=== PATIENT | female | born 1940 | race Caucasian/White ===

== ENCOUNTER 2024-06-07 16:04 | Inpatient (IN) | payer MEDICARE, MEDICAID, SELFPAY ==
[2024-06-07] VITALS (10 sets, daily range): BP systolic 134–171; BP diastolic 48–72; PULSE 66–76; RESP 14–19; TEMP 36.8–37.1; O2SAT 89–100; BMI 27.3
--- NOTE | 2024-06-07 16:09 | EDNOTE_ITS ---
ED General RME/HPI General Chief complaint: Recheck/Abnormal Lab/Rx Stated complaint: ABNORNAL LABS Time Seen by Provider: 06/07/24 16:07 Arrival date/time: 06/07/24 16:04 CC: Abnormal labs HPI patient presents the ER via EMS reports stable vital signs. Abnormal labs reported is a hemoglobin of 5.1. The patient comes with paperwork that includes a DNR DNI that is comfort care only. When asked directly the patient states she does not want a transfusion. Patient is awake alert oriented to self and place. Currently denies any pain. Attempted to contact Dr Barrera, presiding physician at [facility] with care services. Left message but at this point no callbacks. 1621 spoke with Erin Flaca [phone], signature on the DNR who states that she is power of patent prosecution attorney for finances, but has no medical power of patent prosecution attorney. She states comments if the patient declines transfusion then we need to go with what the patient wants. At 1631 I spoke again with the patient stating that she was critically low with her hemoglobin, at that time the patient expressed a desire to be transfused. In addition patient also expressed desire to figure out where the low hemoglobin is coming from and wants it fixed . Related Data Home Medications ?Medication ?Instructions ?Recorded ?Confirmed aspirin 325 mg tablet 325 mg PO MWF 02/04/20 07/31/22 acetaminophen 500 mg tablet 500 mg PO QDAY 07/26/21 07/31/22 albuterol sulfate 90 mcg/actuation 1 inh inhalation Q6H PRN shortness 07/26/21 07/31/22 aerosol inhaler (ProAir HFA) of breath or wheezing amlodipine 5 mg tablet 5 mg PO QDAY 07/26/21 07/31/22 bisacodyl 10 mg rectal suppository 10 mg PA PRN PRN Constipation 07/26/21 07/31/22 insulin glargine 100 unit/mL (3 10 unit subcut HS 07/26/21 07/31/22 mL) subcutaneous pen (Lantus Solostar U-100 Insulin) loratadine 10 mg tablet 10 mg PO QDAY 07/26/21 07/31/22 magnesium hydroxide 400 mg/5 mL 30 ml PO Q72H PRN Constipation 07/26/21 07/31/22 oral suspension (Milk of Magnesia) multivitamin with minerals 1 cap PO QDAY 07/26/21 07/31/22 quetiapine 25 mg tablet (Seroquel) 25 mg PO QDAY 07/26/21 07/31/22 metformin 500 mg tablet 500 mg PO BID 05/20/22 07/31/22 calcium carbonate 600 mg PO BID 07/31/22 07/31/22 chlorhexidine gluconate 4 % 1 applic topical 2 X WEEKLY 07/31/22 07/31/22 topical liquid (Hibiclens) duloxetine 30 mg capsule,delayed 30 mg PO BID 07/31/22 07/31/22 release (Cymbalta) guaifenesin 100 mg/5 mL oral 400 mg PO Q6H PRN Cough 07/31/22 07/31/22 liquid (Tussin) hydrocortisone 1 % lotion 1 applic topical BID 07/31/22 07/31/22 hydroxyzine HCl 25 mg tablet 25 mg PO Q8H PRN Itching 07/31/22 07/31/22 ivermectin 3 mg tablet 18 mg PO QWEEK 07/31/22 07/31/22 polyvinyl alcohol 1.4 % eye drops 2 drp ophthalmic (eye) Q4H PRN 07/31/22 07/31/22 (Artificial Tears (polyvinyl irritation alcohol)) sodium phosphates 19 gram-7 118 ml PA Q72H PRN Constipation 07/31/22 07/31/22 gram/118 mL enema (Fleet Enema) Allergies Allergy/AdvReac Type Severity Reaction Status Date / Time valsartan [From Diovan] Allergy Unknown Verified 07/31/22 14:40 Review of Systems Review of Systems Narrative Review of Systems: GEN: No fever, no chills, no weight loss EYES: No discharge, no visual changes, no pain HEENT: No ear pain, no congestion, no sore throat PULM: No shortness of breath, no cough, no congestion CV: No chest pain, no dyspnea on exertion, no palpitations GI: No nausea, no vomiting, no diarrhea, no pain, no constipation : No frequency, no urgency, no dysuria MUSC/SKEL: No joint pain, no back pain SKIN: No rash PSYCH: No hallucinations, no depression HEME/LYMPH: No easy bleeding or bruising tendencies NEURO: No weakness, no headache Past Medical History Past Medical History CARDIAC: Positive Cardiac Disorders, Edema and Hypertension; Negative Congestive Heart Failure RESPIRATORY: Negative Chronic Obstructive Pulmonary Disease (COPD) or Asthma GENITOURINARY: Negative Renal Disease ENDOCRINE: Negative Diabetes Mellitus Type 1 or Diabetes Mellitus Type 2 HEMATOLOGIC: Negative Sickle Cell Disease Surgical History SURGICAL: Positive Hysterectomy Social History SMOKING STATUS: Former smoker SUBSTANCE USE: unknown ED Exam Narrative Physical exam: [General: Appears not in any acute distress Head normocephalic HEENT: Eyes pupils are PERRLA EOMs are intact conjunctiva are blanched. Nose no rhinorrhea mouth pink dry membranes uvula is midline swallow symmetrical. All other subsystems HEENT are within acceptable limits Neck is supple nontender, no JVD Chest equal chest rise nontender to palpation Respiratory: Clear to auscultation no wheezes crackles or rubs CV: Rate rhythm is regular no murmurs rubs or clicks Abdomen is distended secondary to body habitus soft nontender no masses positive bowel sounds all 4 quadrants GI: Rectal: Moderate rectal tone stool in the vault guaiac positive. No fissures or hemorrhoids. Back: No CVA tenderness no spinous process tenderness from cervical spine thoracic and lumbar spine Skin: Pale, intact no petechiae rash induration ulceration or crepitus Extremities: Moving all extremity against resistance cap refill less than 2 seconds neurosensory intact Neuro: Awake alert oriented x2, person and place, Glascow coma 15 no focal deficits] Course Course Course Narrative: Patient is very awake and alert, I expressed my concern of where the low hemoglobin is coming from. Patient states that she wants me to try and find out what it is and fix it. At 1642 guaiac is positive patient has a GI bleed with anemia will admit the patient on Protonix drip. Dr Barrera called back at 1644 stating the patient is awake alert makes her decisions, he states if the patient wants that he would advised to go ahead and abide by the patient's wishes to transfuse and correct the source of hemorrhage. Quality Measures none Orders Category Date Time Status NPO after Midnight ONCE Care 06/07/24 16:45 Active Transfuse,blood/blood products NOW Care 06/07/24 16:32 Active Consult to Gastroenterology Stat Cons 06/07/24 19:03 Ordered Diet Clear Liquid Diet 06/07/24 Breakfast Active Diet NPO after Midnight Diet 06/08/24 00:01 Active CBC Stat Lab 06/07/24 17:14 Completed CMP [Comprehensive Metabolic Panel] Stat Lab 06/07/24 17:14 Completed Occult Blood, Stool (LAB) Stat Lab 06/07/24 17:06 Completed PT [Prothrombin Time with INR] Stat Lab 06/07/24 17:14 Completed PTT [Partial Thromboplastin Time] Stat Lab 06/07/24 17:14 Completed Path Review Blood Smear Stat Lab 06/07/24 17:14 Completed Type and Screen Stat Lab 06/07/24 17:14 Results prbc [Red Blood Cells] Stat Lab 06/07/24 17:14 Results Pantoprazole Inj [Protonix Inj] Med 06/07/24 16:42 Discontinued 40 mg IVP X1 ONE Pantoprazole/Ns 80Mg IV Premix [Protonix/NS 80mg IV Med 06/07/24 16:43 Active Premix] 80 mg in 100 ml IV Q10H Vital Signs Vital signs: Vital Signs Temperature 98.8 F 06/07/24 16:07 Pulse Rate 72 06/07/24 16:07 Respiratory Rate 16 06/07/24 16:07 Blood Pressure 142/56 H 06/07/24 16:07 Pulse Oximetry (%) 90 L 06/07/24 16:07 Oxygen Delivery Method Room Air 06/07/24 16:07 [facility] Patient data External records reviewed:: [facility] previous records and EMS form Clinical information provided by:: patient and EMS Social determinants that could affect healthcare access:: none Patient has the following chronic illnesses:: Asthma anxiety venous hypertension dysphagia on aspirin 325 a day How is presenting disease/condition affected by chronic disease/condition?: e xacerbated by Evaluation data The following diagnostics were reviewed and interpreted by me:: lab results, radiology exam(s) and EKG tracing(s) Lab and/or radiology exams considered but not ordered:: CBC shows the patient has WBCs of 9.3 and H&H of 5.2 and 19.5 respectively with platelets of 328 CMP shows sodium 141 potassium of 5.1 chloride of 106 CO2 of 28.2 BUN of 23 creatinine of 0.6 with a glucose of 93. Guaiac is positive Interpretation Summary: Patient is a GI bleed will admit to hospitalist with Dr. Kraft, pediatric clinical dietician as a consult. Medications Medications considered but not ordered:: None Medication administrations:: Medication Administration History Acetaminophen (Acetaminophen 325 Mg Tablet) 650 mg PO Q6H PRN PRN Reason: Pain 1-3 and/or Fever >100.1 Stop: 07/07/24 20:00 Hydrocodone Bitart/Acetaminophen (Hydrocodone/Apap 5/325 Tablet) 1 tab PO Q4HR PRN PRN Reason: PAIN SCALE 4-6 (Moderate Stop: 06/12/24 20:00 Hydrocodone Bitart/Acetaminophen (Hydrocodone/Apap 10/325 Tab) 1 tab PO Q4HR PRN PRN Reason: PAIN SCALE 7-10 (Severe Stop: 06/12/24 20:00 Amlodipine Besylate (Amlodipine Besylate 5 Mg Tablet) 5 mg PO QDAY IMMANUEL Stop: 07/08/24 08:59 Dextrose (Dextrose 50%-Water Inj 50 Ml Syringe) 25 ml IV Q15MIN PRN PRN Reason: BG 50-70 responsive npo pt Stop: 07/07/24 20:03 Dextrose (Dextrose 50%-Water Inj 50 Ml Syringe) 50 ml IV Q15MIN PRN PRN Reason: BG <50 OR BG <70 & pt unresponsive Stop: 07/07/24 20:03 Duloxetine HCl (Duloxetine Hcl 30 Mg Capsule) 30 mg PO HS IMMANUEL Stop: 07/07/24 20:59 Glucagon (Glucagon Inj 1 Mg Vial) 1 mg IM Q15MIN PRN PRN Reason: BG <70, and no IV access Pantoprazole Sodium (Protonix/Ns 80mg Iv Premix) 80 mg in 100 mls @ 10 mls/hr IV Q10H IMMANUEL Stop: 06/10/24 14:42 Last Admin: 06/07/24 17:32 Dose: 10 mls/hr Documented By: GM Insulin Human Lispro (Insulin Lispro (Admelog) 1 Unit/0.01 Ml Unit) 0 unit SC [facility]; Protocol Stop: 07/07/24 20:59 Ondansetron HCl (Ondansetron Inj 2 Mg/Ml Inj 2 Ml) 4 mg IV Q6H PRN; Protocol PRN Reason: NAUSEA OR VOMITING Stop: 07/07/24 20:00 Discontinued Medications Pantoprazole Sodium (Pantoprazole Inj 40 Mg Vial) 40 mg IVP X1 ONE Stop: 06/07/24 16:43 Last Admin: 06/07/24 17:31 Dose: 40 mg Documented By: GM None Consultations Consultation(s) initiated? (list below): Yes Consultation #1 (Physician, Specialty, Details): Swapnil Time: 18:57 Diagnosis Differential Diagnosis ED Complaint MDM: GI bleed anemia renal insufficiency Most likely diagnosis given after review of the tests above:: GI bleed anemia Admission Indicated Admission indicated?: indicated Explain why admission is indicated or not indicated:: Quires further medical evaluation Admission Request Was there a request for admission?: No Disposition Plan Disposition Plan: Admit Medical Decision Making Differential Diagnosis Differential Diagnosis: GI bleed anemia renal insufficiency Lab Data 06/07/24 17:14 06/07/24 17:14 Labs: Lab Results 06/07/24 06/07/24 Range/Units 17:06 17:14 WBC 9.3 (3.6-11.0) Thou/mm3 RBC 3.16 L (4.00-5.20) Miln/mm3 Hgb 5.2 L* (12.0-16.0) g/dL Hct 19.5 L* (36.0-46.0) % MCV 62 L (80-100) fL MCH 16.5 L (25.0-35.0) pg MCHC 26.7 L (31.0-37.0) g/dl RDW Std Deviation 44.2 (36.4-46.3) fL Plt Count 328 (140-440) Thou/mm3 Neut % (Auto) 62 (37-80) % Lymph % (Auto) 21 (10-50) % Avery % (Auto) 12 (0-12) % Eos % (Auto) 5 (0-10) % Baso % (Auto) 1 (0-2.5) % Neut # (Auto) 5.7 (1.8-7.7) Thou/mm3 Lymph # (Auto) 1.9 (1.0-4.8) Thou/mm3 Avery # (Auto) 1.2 H (0.0-0.8) Thou/mm3 Eos # (Auto) 0.4 (0.0-0.5) Thou/mm3 Baso # (Auto) 0.1 (0.0-0.2) Thou/mm3 Immature Gran # (Auto) 0.03 H (0.00-0.00) Thou/mm3 Absolute Nucleated RBC 0.00 (0.00-0.00) Thou/mm3 Immature Gran % 0 (0-0) % Nucleated RBC % 0 (0) /100 WBC Smear Path Review Sent to Pathologist PT 11.0 (9.0-12.2) Seconds INR 1.0 (0.9-1.3) APTT 21.9 L (22.0-36.0) Seconds Sodium 141 (136-145) mMol/L Potassium 5.1 (3.4-5.1) mMol/L Chloride 106 (98-107) mMol/L Carbon Dioxide 28.8 (20.0-31.0) mMol/L Anion Gap 6 L (7-16) BUN 23 (9-23) mg/dL Creatinine 0.6 (0.6-1.3) mg/dL Estim Creat Clear Calc 74.4 (>60) mL/min eGFR > 60 (60 - ) See Note BUN/Creatinine Ratio 38 H (12-20) Ratio Glucose 93 (74-106) mg/dL Calculated Osmolality 284 (275-295) Calcium 9.2 (8.3-10.6) mg/dL Corrected Calcium 9.3 (8.5-10.1) mg/dL Total Bilirubin 0.2 L (0.3-1.2) mg/dL AST 13 (0-34) U/L ALT < 7 L (10-49) U/L Alkaline Phosphatase 82 (46-116) U/L Total Protein 6.5 (5.7-8.2) gm/dL Albumin 3.9 (3.4-4.8) gm/dL Globulin 2.6 (2.3-3.5) gm/dL Albumin/Globulin Ratio 1.5 (1.2-2.2) Stool Occult Blood Positive A (Negative) Blood Type A Negative Antibody Screen NEGATIVE Crossmatch See Detail Blood Bank Wristband ID Yes Discharge Plan Plan Patient Disposition: Other Care w/in Hosp ([facility]) Patient condition on transfer: Stable Problem List Clinical Impression: Anemia, GI bleed PA/JUNIOR WEB DEVELOPER Supervising Physician PA/JUNIOR WEB DEVELOPER Supervising Physician: Kamron Root ENP
--- NOTE | 2024-06-07 16:30 | PC.NURSE ---
LIOR; PER EMS REPORT, PT COMING FROM [facility]; STAFF PERFORMED ANNUAL BLOOD TESTS. PT'S HGB CAMEBACK 5.1 WITH LOW HCT ALSO. PT PALE. PT DNR/DNI AND ON COMFORT CARE. PT SATTING AT 89% ON RA SO WE PUT PT ON 4L OF NC. PT CONNECTED TO MONITORS AT THIS TIME.
[2024-06-07] MEDS: PANTOPRAZOLE INJ 40 MG VIAL IVP (17:31)
[2024-06-07] MEDS: PANTOPRAZOLE/NS 80MG IV PREMIX 80 MG/100 ML BAG 10 MG IV ×2 (17:32→21:41)
[2024-06-07 17:39] LABS: OBS Card Lot # 23001; OBS Developer Lot # 23002; OBS Performed By madrg3; OBS QC OK? Yes; Occult Blood, Stool Positive (Negative)
[2024-06-07 17:46] LABS: Basophils # (Auto) 0.1 Thou/mm3 (0.0-0.2); Basophils % (Auto) 1 % (0-2.5); Eosinophils # (Auto) 0.4 Thou/mm3 (0.0-0.5); Eosinophils % (Auto) 5 % (0-10); Immature Granulocytes % (Auto) 0 % (0-0); Immature Granulocytes Auto 0.03 Thou/mm3 (0.00-0.00); Lymphocytes # (Auto) 1.9 Thou/mm3 (1.0-4.8); Lymphocytes % (Auto) 21 % (10-50); Mean Corpuscular HGB Conc 26.7 g/dl (31.0-37.0); Mean Corpuscular Hemoglobin 16.5 pg (25.0-35.0); Mean Corpuscular Volume 62 fL (80-100); Monocytes # (Auto) 1.2 Thou/mm3 (0.0-0.8); Monocytes % (Auto) 12 % (0-12); Neutrophils # (Auto) 5.7 Thou/mm3 (1.8-7.7); Neutrophils % (Auto) 62 % (37-80); Nucleated Red Blood Cell % 0 /100 WBC (0); Platelet Count 328 Thou/mm3 (140-440); RDW Standard Deviation 44.2 fL (36.4-46.3); Red Blood Count 3.16 Miln/mm3 (4.00-5.20); White Blood Count 9.3 Thou/mm3 (3.6-11.0)
[2024-06-07 18:11] LABS: Partial Thromboplastin Time 21.9 Seconds (22.0-36.0)
[2024-06-07 18:16] LABS: Hematocrit 19.5 % (36.0-46.0); Hemoglobin 5.2 g/dL (12.0-16.0)
[2024-06-07 18:22] LABS: Alanine Aminotransferase < 7 U/L (10-49); Albumin, Serum 3.9 gm/dL (3.4-4.8); Albumin/Globulin Ratio 1.5 (1.2-2.2); Alkaline Phosphatase 82 U/L (46-116); Anion Gap 6 (7-16); Aspartate Amino Transferase 13 U/L (0-34); BUN/Creatinine Ratio 38 Ratio (12-20); Bilirubin,Total 0.2 mg/dL (0.3-1.2); Blood Urea Nitrogen 23 mg/dL (9-23); Calcium 9.2 mg/dL (8.3-10.6); Calcium (Corrected) 9.3 mg/dL (8.5-10.1); Carbon Dioxide 28.8 mMol/L (20.0-31.0); Chloride 106 mMol/L (98-107); Creatinine (Component) 0.6 mg/dL (0.6-1.3); Estimated Creatinine Clearance 74.4 mL/min (>60); Globulin 2.6 gm/dL (2.3-3.5); Glucose 93 mg/dL (74-106); Osmolality,Calculated 284 (275-295); Potassium 5.1 mMol/L (3.4-5.1); Sodium 141 mMol/L (136-145); Total Protein 6.5 gm/dL (5.7-8.2); eGFR > 60 See Note
--- NOTE | 2024-06-07 18:36 | PC.NURSE ---
Dr. Torres at bedside to consult with patient.
[2024-06-07 19:40] LABS: Path Review Blood Smear Sent to Pathologist
--- NOTE | 2024-06-07 19:54 | PD.IMCONS ---
HPI Data of Consult Primary Care Provider: Physician No Primary/Family Consult Narrative Reason for consult: H/H 5.2/19.5 History of present illness: 83 years of female evaluated at request of the physician registered medical assistant Mr. Root Patient has a presenting hemoglobin hematocrit of 5.2 and 19.5 sent from the long term and Hemoccult positive stool Her last hemoglobin hematocrit on 07/31/2022 was 12.1 and 38.0 and a platelet count of 204,000 BUN/creatinine 23 and 0.9 No history of any evaristo GI bleeding in the form of melena hematemesis or hematochezia Patient initially was a DNI DNR but that issue has been resolved by the ER physician and the patient wants things done and wants to find out Patient is a similar process of getting 2 units of PRBC cc:: cc: Review of Systems Review of Systems Systems Reviewed: All systems reviewed, normal except as documented Past Medical History Surgical History OTHER SURGICAL HX: Diabetes mellitus type 1 Essential hypertension Meds Home Medications and Allergies Home Medications ?Medication ?Instructions ?Recorded ?Confirmed ?Type aspirin 325 mg tablet 325 mg PO MWF 02/04/20 07/31/22 History acetaminophen 500 mg tablet 500 mg PO QDAY 07/26/21 07/31/22 History albuterol sulfate 90 mcg/actuation 1 inh inhalation Q6H PRN shortness 07/26/21 07/31/22 History aerosol inhaler (ProAir HFA) of breath or wheezing amlodipine 5 mg tablet 5 mg PO QDAY 07/26/21 07/31/22 History bisacodyl 10 mg rectal suppository 10 mg ME PRN PRN Constipation 07/26/21 07/31/22 History insulin glargine 100 unit/mL (3 10 unit subcut HS 07/26/21 07/31/22 History mL) subcutaneous pen (Lantus Solostar U-100 Insulin) loratadine 10 mg tablet 10 mg PO QDAY 07/26/21 07/31/22 History magnesium hydroxide 400 mg/5 mL 30 ml PO Q72H PRN Constipation 07/26/21 07/31/22 History oral suspension (Milk of Magnesia) multivitamin with minerals 1 cap PO QDAY 07/26/21 07/31/22 History quetiapine 25 mg tablet (Seroquel) 25 mg PO QDAY 07/26/21 07/31/22 History metformin 500 mg tablet 500 mg PO BID 05/20/22 07/31/22 History calcium carbonate 600 mg PO BID 07/31/22 07/31/22 History chlorhexidine gluconate 4 % 1 applic topical 2 X WEEKLY 07/31/22 07/31/22 History topical liquid (Hibiclens) duloxetine 30 mg capsule,delayed 30 mg PO BID 07/31/22 07/31/22 History release (Cymbalta) guaifenesin 100 mg/5 mL oral 400 mg PO Q6H PRN Cough 07/31/22 07/31/22 History liquid (Tussin) hydrocortisone 1 % lotion 1 applic topical BID 07/31/22 07/31/22 History hydroxyzine HCl 25 mg tablet 25 mg PO Q8H PRN Itching 07/31/22 07/31/22 History ivermectin 3 mg tablet 18 mg PO QWEEK 07/31/22 07/31/22 History polyvinyl alcohol 1.4 % eye drops 2 drp ophthalmic (eye) Q4H PRN 07/31/22 07/31/22 History (Artificial Tears (polyvinyl irritation alcohol)) sodium phosphates 19 gram-7 118 ml ME Q72H PRN Constipation 07/31/22 07/31/22 History gram/118 mL enema (Fleet Enema) Allergies Allergy/AdvReac Type Severity Reaction Status Date / Time valsartan [From Diovan] Allergy Unknown Verified 07/31/22 14:40 Exam Vital Signs Temp Pulse Resp BP Pulse Ox O2 Del Method O2 Flow Rate 98.2 F 75 14 134/48 H 100 Nasal Cannula 2 06/07/24 18:48 06/07/24 18:48 06/07/24 18:48 06/07/24 18:48 06/07/24 18:48 06/07/24 18:48 06/07/24 18:48 Routine Respiratory Exam Comments: Normal to auscultation Routine Abdominal Exam Comments: Soft nontender Results Labs 06/07/24 17:14 06/07/24 17:14 Labs: Short CBC 06/07/24 Range/Units 17:14 WBC 9.3 (3.6-11.0) Thou/mm3 Hgb 5.2 L* (12.0-16.0) g/dL Hct 19.5 L* (36.0-46.0) % Plt Count 328 (140-440) Thou/mm3 BMP 06/07/24 17:14 Sodium 141 Potassium 5.1 Chloride 106 Carbon Dioxide 28.8 BUN 23 Creatinine 0.6 Glucose 93 Calcium 9.2 Liver Function 06/07/24 Range/Units 17:14 Total Bilirubin 0.2 L (0.3-1.2) mg/dL AST 13 (0-34) U/L ALT < 7 L (10-49) U/L Alkaline Phosphatase 82 (46-116) U/L Albumin 3.9 (3.4-4.8) gm/dL Assessment and Plan Additional Assessment & Plan Additional Plan: # Posthemorrhagic anemia with a significant drop in hemoglobin hematocrit from 07/31/2022 whether this is acute or chronic is unknown at the present She definitely is Hemoccult positive At the long term patient Suggestions Agree with the blood transfusion Clear liquid diet N.p.o. midnight tonight except p.o. meds Consent obtained for fiberoptic esophagogastroduodenoscopy with possible therapeutic intervention possible biopsy under intravenous moderate sedation scheduled for tomorrow morning In case the upper endoscopy is negative we will consider doing a fibrotic colonoscopy before then the patient back to long term Other medical problems include # IDDM # Essential hypertension # Bronchial asthma Thank you once again for the opportunity to participate in the care of this patient
--- NOTE | 2024-06-07 20:07 | ESHP_ITS ---
<Statement entered by Rolando Melendez MD - 06/07/24 21:44> I Rolando Melendez MD reviewed the note and agree with the resident's assessment & plan with exceptions as below. I have personally reviewed labs, imaging, home meds/prior records, examined the patient, formulated and discussed management plan with the IM team. An 83-year F with Hx of AF, asthma/COPD, diabetes mellitus presented from SNF after noted to have severe anemia on lab workup. Patient is AO x 2, incoherent and uncooperative however denies melena, hematemesis, abdominal pain, vaginal bleeding. Patient noted to have hemoglobin <6. Transfused 2 unit PRBC to maintain Hgb> 7. Started on omeprazole loading & infusion. Hold anticoagulation, consult GI for EGD colonoscopy. N.p.o. past midnight for potential scopes in the morning. Currently rate is controlled without any rate control medications. Will continue to monitor. Documentation for date of: 06/07/24 HPI History of Present Illness Chief complaint: Low hemoglobin noted at facility History of present illness: 83-year-old female with past medical history of hypertension, paroxysmal atrial fibrillation, Asthma/COPD on 2 L nasal cannula oxygenation, insulin-dependent type 2 diabetes, MDD presenting to the ED on 06/07 after lab work from [facility] showed a hemoglobin requiring transfusion. Patient is a long-term resident at the [facility] and states that upon checking her blood the care providers at the facility requested that she be transferred to the ED for transfusion. Patient denies having any concerning GI symptoms at this time, denies having any melena, hematochezia, hematemesis, abdominal pain, changes in bowel pattern but does state that she is constipated from time to time. When asked if the patient has noticed any blood in her stools, she denies checking but states that she has not noticed any blood on the toilet paper. Patient otherwise also denies having any concerning symptoms such as chest pain/tightness, shortness of breath, poor p.o. intake/poor appetite, headaches or any new dizziness. Per patient, she has been eating well and denies having any specific complaints, she does state that she has generalized pain but she attributes that to her advanced age. Medical history: As stated above Surgical history: hysterectomy, right breast lumpectomy Allergies: Valsartan Medications: Pending med rec, likely amlodipine 5 mg, Eliquis 5 mg p.o. twice daily, duloxetine 30 mg p.o. Family history: Noncontributory Social history: former smoker, denies alcohol or drug use ROS: All 12 systems assessed and the patient denies unless otherwise stated in HPI. In the ED, patient presented hypertensive 142/56, heart rate 72, respiratory rate 16, afebrile satting 90 on 2 L oxygen. Pertinent lab findings included WBC 9.3, hemoglobin 5.2, hematocrit 19.5%, MCV 62, sodium 141, potassium 5.1, BUN 23, creatinine 0.6, total bilirubin 0.2. FOBT positive. Patient will be admitted for GI workup for possible upper versus lower GI bleed; Dr. Kraft, gastroenterology, has been consulted. Exam Vital Signs Temp Pulse Resp BP Pulse Ox O2 Del Method O2 Flow Rate 98.2 F 75 14 134/48 H 100 Nasal Cannula 2 06/07/24 18:48 06/07/24 18:48 06/07/24 18:48 06/07/24 18:48 06/07/24 18:48 06/07/24 18:48 06/07/24 18:48 Narrative Exam Physical Exam: GENERAL: Awake, answering questions appropriately, appears stated age HEENT: NC/AT. Moist mucosa. PERRLA/EOMI. CARDIO: Heart RRR, no obvious murmurs, no JVD. PULM: No coughing or visible SOB. Lungs CTA B/L. GI: Abdomen soft, NT/ND, +BS. SKIN/MSK/EXT: No wounds/discoloration/rashes/edema/amputations. +Pedal pulses present B/L. NEURO: Oriented x3, plant machinist strength 5/5, Moves extremities x4. Results: Labs 06/07/24 17:14 06/07/24 17:14 Labs: Short CBC 06/07/24 Range/Units 17:14 WBC 9.3 (3.6-11.0) Thou/mm3 Hgb 5.2 L* (12.0-16.0) g/dL Hct 19.5 L* (36.0-46.0) % Plt Count 328 (140-440) Thou/mm3 BMP 06/07/24 17:14 Sodium 141 Potassium 5.1 Chloride 106 Carbon Dioxide 28.8 BUN 23 Creatinine 0.6 Glucose 93 Calcium 9.2 Liver Function 06/07/24 Range/Units 17:14 Total Bilirubin 0.2 L (0.3-1.2) mg/dL AST 13 (0-34) U/L ALT < 7 L (10-49) U/L Alkaline Phosphatase 82 (46-116) U/L Albumin 3.9 (3.4-4.8) gm/dL Quality Measures Quality Measures VTE prophylaxis Advance care planning discussed with:: patient Medications Home Medications and Allergies Home Medications ?Medication ?Instructions ?Recorded ?Confirmed ?Type aspirin 325 mg tablet 325 mg PO MWF 02/04/20 07/31/22 History acetaminophen 500 mg tablet 500 mg PO QDAY 07/26/21 07/31/22 History albuterol sulfate 90 mcg/actuation 1 inh inhalation Q6H PRN shortness 07/26/21 07/31/22 History aerosol inhaler (ProAir HFA) of breath or wheezing amlodipine 5 mg tablet 5 mg PO QDAY 07/26/21 07/31/22 History bisacodyl 10 mg rectal suppository 10 mg DC PRN PRN Constipation 07/26/21 07/31/22 History insulin glargine 100 unit/mL (3 10 unit subcut HS 07/26/21 07/31/22 History mL) subcutaneous pen (Lantus Solostar U-100 Insulin) loratadine 10 mg tablet 10 mg PO QDAY 07/26/21 07/31/22 History magnesium hydroxide 400 mg/5 mL 30 ml PO Q72H PRN Constipation 07/26/21 07/31/22 History oral suspension (Milk of Magnesia) multivitamin with minerals 1 cap PO QDAY 07/26/21 07/31/22 History quetiapine 25 mg tablet (Seroquel) 25 mg PO QDAY 07/26/21 07/31/22 History metformin 500 mg tablet 500 mg PO BID 05/20/22 07/31/22 History calcium carbonate 600 mg PO BID 07/31/22 07/31/22 History chlorhexidine gluconate 4 % 1 applic topical 2 X WEEKLY 07/31/22 07/31/22 History topical liquid (Hibiclens) duloxetine 30 mg capsule,delayed 30 mg PO BID 07/31/22 07/31/22 History release (Cymbalta) guaifenesin 100 mg/5 mL oral 400 mg PO Q6H PRN Cough 07/31/22 07/31/22 History liquid (Tussin) hydrocortisone 1 % lotion 1 applic topical BID 07/31/22 07/31/22 History hydroxyzine HCl 25 mg tablet 25 mg PO Q8H PRN Itching 07/31/22 07/31/22 History ivermectin 3 mg tablet 18 mg PO QWEEK 07/31/22 07/31/22 History polyvinyl alcohol 1.4 % eye drops 2 drp ophthalmic (eye) Q4H PRN 07/31/22 07/31/22 History (Artificial Tears (polyvinyl irritation alcohol)) sodium phosphates 19 gram-7 118 ml DC Q72H PRN Constipation 07/31/22 07/31/22 History gram/118 mL enema (Fleet Enema) Allergies Allergy/AdvReac Type Severity Reaction Status Date / Time valsartan [From Diovan] Allergy Unknown Verified 07/31/22 14:40 Visit Medications Acetaminophen (Acetaminophen 325 Mg Tablet) 650 mg PO Q6H PRN PRN Reason: Pain 1-3 and/or Fever >100.1 Stop: 07/07/24 20:00 Hydrocodone Bitart/Acetaminophen (Hydrocodone/Apap 5/325 Tablet) 1 tab PO Q4HR PRN PRN Reason: PAIN SCALE 4-6 (Moderate Stop: 06/12/24 20:00 Hydrocodone Bitart/Acetaminophen (Hydrocodone/Apap 10/325 Tab) 1 tab PO Q4HR PRN PRN Reason: PAIN SCALE 7-10 (Severe Stop: 06/12/24 20:00 Amlodipine Besylate (Amlodipine Besylate 5 Mg Tablet) 5 mg PO QDAY IMMANUEL Stop: 07/08/24 08:59 Dextrose (Dextrose 50%-Water Inj 50 Ml Syringe) 25 ml IV Q15MIN PRN PRN Reason: BG 50-70 responsive npo pt Stop: 07/07/24 20:03 Dextrose (Dextrose 50%-Water Inj 50 Ml Syringe) 50 ml IV Q15MIN PRN PRN Reason: BG <50 OR BG <70 & pt unresponsive Stop: 07/07/24 20:03 Duloxetine HCl (Duloxetine Hcl 30 Mg Capsule) 30 mg PO HS IMMANUEL Stop: 07/07/24 20:59 Glucagon (Glucagon Inj 1 Mg Vial) 1 mg IM Q15MIN PRN PRN Reason: BG <70, and no IV access Pantoprazole Sodium (Protonix/Ns 80mg Iv Premix) 80 mg in 100 mls @ 10 mls/hr IV Q10H IMMANUEL Stop: 06/10/24 14:42 Last Admin: 06/07/24 17:32 Dose: 10 mls/hr Insulin Human Lispro (Insulin Lispro (Admelog) 1 Unit/0.01 Ml Unit) 0 unit SC ACHS IMMANUEL; Protocol Stop: 07/07/24 20:59 Ondansetron HCl (Ondansetron Inj 2 Mg/Ml Inj 2 Ml) 4 mg IV Q6H PRN; Protocol PRN Reason: NAUSEA OR VOMITING Stop: 07/07/24 20:00 Discontinued Medications Pantoprazole Sodium (Pantoprazole Inj 40 Mg Vial) 40 mg IVP X1 ONE Stop: 06/07/24 16:43 Last Admin: 06/07/24 17:31 Dose: 40 mg Assessment & Plan Plan 83-year-old female with past medical history of hypertension, paroxysmal atrial fibrillation, Asthma/COPD on 2 L nasal cannula oxygenation, insulin-dependent type 2 diabetes, MDD presenting to the ED on 06/07 after lab work from [facility] showed a hemoglobin requiring transfusion will be admitted for GI workup for possible upper versus lower GI bleed; Dr. Kraft, gastroenterology, has been consulted. #Possible Upper vs. Lower GI Bleed #Possible Acute Blood Loss Anemia vs. Iron Deficiency Anemia Patient presenting from [facility] secondary to having labs drawn and hemoglobin apparently being low In the ED, patient's hemoglobin is 5.2 and hematocrit 19.5% with MCV of 62 WBC 9.3, platelet 328, BUN 23 Patient likely has iron deficiency anemia versus acute upper versus lower GI bleed FOBT was positive, GI Dr. Kraft was consulted in the ED Plan: Patient will be transfused 2 units of PRBC Protonix gtt Clear liquid, will transition to n.p.o. after midnight for EGD in the AM 06/08 Follow-up iron panel, ferritin PRN multimodal analgesia - althought patient not in active pain #Hypertension Patient is on amlodipine 5 mg p.o. daily Presented with mild hypertension in the ED Plan: Restarted home medications #Paroxysmal Atrial Fibrillation Patient has documented history of paroxysmal atrial fibrillation On Eliquis 5 mg p.o. twice daily Currently the patient is in normal sinus rhythm with heart rate of 71 Plan: Will hold anticoagulant in the setting of possible upper versus lower GI bleed #Insulin-dependent Type 2 Diabetes Last A1c from EHR shows 6.1 back in 2021 Patient possibly on insulin, is not sure of her medications as they are given to her at [facility] Plan: Follow-up on A1c Sliding scale insulin ACHS blood glucose checks, switch to every 6 hours when patient becomes n.p.o. for EGD #MDD Patient has extensive history, as noted from past chart history On duloxetine 30 mg p.o. daily Plan: Restarted home medication Hospital Management: Lines: PIV Diet: Clear liquid, NPO after midnight Bowel: Not needed at this time GI prophylaxis: On protonix DVT prophylaxis: SCDs Dispo: GI workup for possible upper vs. lower GI bleed Code: DNR Patient seen and assessed with attending Dr. Melendez and senior resident Dr. Misael Asher, PGY-1
--- NOTE | 2024-06-07 21:22 | PC.NURSE ---
Pt is alert/awake/oriented to self and place. No s/s of acute distress noted. Pt given juice and jello, pt tolerated well. Call light within reach, plan of care ongoing.
[2024-06-07] MEDS: DULoxetine HCL 30 MG CAPSULE PO (21:37)
--- NOTE | 2024-06-07 23:00 | PC.NURSE ---
Pt awake/alert/oriented to self and place. No s/s of acute distress noted. Pt given juice at this time. Call light within reach. Plan of care ongoing.
--- NOTE | 2024-06-07 23:31 | PC.NURSE ---
Report given to ALPESH Mckinley
[2024-06-08] VITALS (18 sets, daily range): BP systolic 126–157; BP diastolic 41–66; PULSE 63–88; RESP 15–90; TEMP 36.2–36.8; O2SAT 90–100; BMI 26.5; BMI 26.6
[2024-06-08 06:15] LABS: Basophils # (Auto) 0.1 Thou/mm3 (0.0-0.2); Basophils % (Auto) 1 % (0-2.5); Eosinophils # (Auto) 0.3 Thou/mm3 (0.0-0.5); Eosinophils % (Auto) 4 % (0-10); Hematocrit 26.2 % (36.0-46.0); Immature Granulocytes % (Auto) 0 % (0-0); Immature Granulocytes Auto 0.03 Thou/mm3 (0.00-0.00); Lymphocytes # (Auto) 1.5 Thou/mm3 (1.0-4.8); Lymphocytes % (Auto) 20 % (10-50); Mean Corpuscular HGB Conc 29.4 g/dl (31.0-37.0); Mean Corpuscular Hemoglobin 20.5 pg (25.0-35.0); Mean Corpuscular Volume 70 fL (80-100); Monocytes # (Auto) 0.9 Thou/mm3 (0.0-0.8); Monocytes % (Auto) 12 % (0-12); Neutrophils % (Auto) 63 % (37-80); Nucleated Red Blood Cell % 0 /100 WBC (0); Platelet Count 242 Thou/mm3 (140-440); RDW Standard Deviation 64.3 fL (36.4-46.3); Red Blood Count 3.76 Miln/mm3 (4.00-5.20); White Blood Count 7.9 Thou/mm3 (3.6-11.0)
[2024-06-08 06:17] LABS: Hemoglobin 7.7 g/dL (12.0-16.0)
[2024-06-08 06:21] LABS: Prothrombin Time 11.1 Seconds (9.0-12.2)
[2024-06-08 06:56] LABS: Alanine Aminotransferase < 7 U/L (10-49); Albumin, Serum 3.7 gm/dL (3.4-4.8); Albumin/Globulin Ratio 1.5 (1.2-2.2); Alkaline Phosphatase 79 U/L (46-116); Anion Gap 6 (7-16); Aspartate Amino Transferase 14 U/L (0-34); BUN/Creatinine Ratio 33 Ratio (12-20); Bilirubin,Total 0.4 mg/dL (0.3-1.2); Blood Urea Nitrogen 20 mg/dL (9-23); Calcium 8.8 mg/dL (8.3-10.6); Carbon Dioxide 27.8 mMol/L (20.0-31.0); Cardiac Risk Estimate 3.2 RATIO (3.7-5.6); Chloride 106 mMol/L (98-107); Cholesterol 139 mg/dL (132-200); Creatinine (Component) 0.6 mg/dL (0.6-1.3); Estimated Creatinine Clearance 73.3 mL/min (>60); Ferritin 4 ng/mL (7.3-270.7); Globulin 2.4 gm/dL (2.3-3.5); Glucose 80 mg/dL (74-106); HDL Cholesterol 43 mg/dL (40-60); LDL Cholesterol,Calculated 75 mg/dL (0-130); Magnesium 2.1 mg/dL (1.6-2.6); Osmolality,Calculated 281 (275-295); Potassium 4.7 mMol/L (3.4-5.1); Sodium 140 mMol/L (136-145); Thyroid Stimulating Hormone 11.58 uIU/mL (0.55-4.78); Total Iron Binding Capacity 371 mcg/dL (250-425); Total Protein 6.1 gm/dL (5.7-8.2); Triglycerides 107 mg/dL (30-150); eGFR > 60 See Note
[2024-06-08 07:06] LABS: Iron 15 mcg/dL (50-170); Percent Iron Saturation 4 % (20-55); Unsaturated Iron Binding 356 (225-295)
--- NOTE | 2024-06-08 09:39 | PC.SS ---
Nelli Sanches is 83-year-old female admitted to Med-Surg for Low Hbg. SS conducted over the phone contact with the patient nurse from [facility] to complete initial assessment and to discuss discharge planning. Pt is a long-term resident of [facility], pt will return upon DC. Pt is non-ambulatory and bedbound. Pts DM is her friend David Maloneania [phone]. No further needs identified. SS will remain available. DC Plan: Return [facility] Contact: David Thayer [phone] PCP: Bruce
[2024-06-08 09:57] LABS: Free T4 (Free Thyroxine) 0.91 ng/dL (0.89-1.76)
--- NOTE | 2024-06-08 10:20 | PC.NURSE ---
Telephone consent obtained from patient's technical service representative Maile Guerin, second RN witness ALPESH Polk
--- NOTE | 2024-06-08 10:49 | ESPR_ITS ---
Documentation for date of: 06/08/24 ATTESTATION: I saw and examined the patient this morning, and I agree with current management stated by the resident. Will continue to monitor patient during their stay. Disclaimer: Despite multiple revisions, due to the dictation software being used, the document bellow may not be free of grammatical errors including phonetic/typographic errors. However, this does not deter from our commitment to providing health care in the patient's best interest in mind. Dr. Aubrey Lennon, PGY-3 Subjective Subjective Interval history: Patient seen today at the bedside found awake, alert, orientedx3, somewhat sleepy. States no active complaints at this time, denies any bleeding from stool, vomiting, dark stools. Vital signs stable at this time. Labs show improvement in Hemoglobin after 2pRBCs transfusion, current Hg 7.7. Dr. Kraft, GI specialist will do EGD evaluation today. Exam Vital Signs Temp Pulse Resp BP Pulse Ox O2 Del Method O2 Flow Rate 97.4 F 65 18 126/46 L 94 L Nasal Cannula 2 06/08/24 08:00 06/08/24 09:52 06/08/24 08:00 06/08/24 09:52 06/08/24 08:00 06/08/24 08:00 06/08/24 08:00 Narrative Exam Physical Exam GENERAL: NAD, AAOx3, pale HEENT: Moist mucosa. Eyes open, symmetrical, & clear CARDIO: Heart RRR, no obvious murmurs PULM: No noted coughing/dyspnea CTA B/L, no R/W/R GI: Abdomen soft, nondistended, no pain on palpation. BSx4 SKIN/MSK/EXT: No wounds/rashes/edema/amputations, no pain on palpation. Pedal pulses present B/L NEURO: AAOx3, no focal neuro deficits, able to move all 4 extremities Objective Labs 06/09/24 04:39 06/09/24 04:39 Labs: Laboratory Results - last 24 hr 06/07/24 06/07/24 06/08/24 17:06 17:14 05:35 WBC 9.3 7.9 RBC 3.16 L 3.76 L Hgb 5.2 L* 7.7 L D Hct 19.5 L* 26.2 L MCV 62 L 70 L MCH 16.5 L 20.5 L MCHC 26.7 L 29.4 L RDW Std Deviation 44.2 64.3 H Plt Count 328 242 D Neut % (Auto) 62 63 Lymph % (Auto) 21 20 [place] % (Auto) 12 12 Eos % (Auto) 5 4 Baso % (Auto) 1 1 Neut # (Auto) 5.7 5.0 Lymph # (Auto) 1.9 1.5 [place] # (Auto) 1.2 H 0.9 H Eos # (Auto) 0.4 0.3 Baso # (Auto) 0.1 0.1 Immature Gran # (Auto) 0.03 H 0.03 H Absolute Nucleated RBC 0.00 0.00 Immature Gran % 0 0 Nucleated RBC % 0 0 Smear Path Review Sent to Pathologist PT 11.0 11.1 INR 1.0 1.0 APTT 21.9 L Sodium 141 140 Potassium 5.1 4.7 Chloride 106 106 Carbon Dioxide 28.8 27.8 Anion Gap 6 L 6 L BUN 23 20 Creatinine 0.6 0.6 Estim Creat Clear Calc 74.4 73.3 eGFR > 60 > 60 BUN/Creatinine Ratio 38 H 33 H Glucose 93 80 Calculated Osmolality 284 281 Calcium 9.2 8.8 Corrected Calcium 9.3 9.0 Phosphorus 4.0 Magnesium 2.1 Iron 15 L TIBC 371 Iron Saturation 4 L Unsat Iron Binding 356 H Ferritin 4 L Total Bilirubin 0.2 L 0.4 AST 13 14 ALT < 7 L < 7 L Alkaline Phosphatase 82 79 Total Protein 6.5 6.1 Albumin 3.9 3.7 Globulin 2.6 2.4 Albumin/Globulin Ratio 1.5 1.5 Triglycerides 107 Cholesterol 139 LDL Cholesterol, Calc 75 HDL Cholesterol 43 Cholesterol/HDL Ratio 3.2 L TSH 11.58 H Free T4 0.91 Stool Occult Blood Positive A Blood Type A Negative Antibody Screen NEGATIVE Crossmatch See Detail Blood Bank Wristband ID Yes Quality Measures Quality Measures none Advance care planning discussed with:: patient Assessment & Plan Assessment Current Active Medications: Generic Name Dose Route Start Last Admin Trade Name Freq PRN Reason Stop Dose Admin Acetaminophen 650 mg 06/07/24 20:01 Acetaminophen 325 Mg Tablet PO 07/07/24 20:00 Q6H PRN Pain 1-3 and/or Fever >100.1 Hydrocodone Bitart/Acetaminophen 1 tab 06/07/24 20:01 Hydrocodone/Apap 5/325 Tablet PO 06/12/24 20:00 Q4HR PRN PAIN SCALE 4-6 (Moderate Hydrocodone Bitart/Acetaminophen 1 tab 06/07/24 20:01 Hydrocodone/Apap 10/325 Tab PO 06/12/24 20:00 Q4HR PRN PAIN SCALE 7-10 (Severe Amlodipine Besylate 5 mg 06/08/24 09:00 06/08/24 09:52 Amlodipine Besylate 5 Mg Tablet PO 07/08/24 08:59 Not Given QDAY IMMANUEL Dextrose 25 ml 06/07/24 20:04 Dextrose 50%-Water Inj 50 Ml Syringe IV 07/07/24 20:03 Q15MIN PRN BG 50-70 responsive npo pt Dextrose 50 ml 06/07/24 20:04 Dextrose 50%-Water Inj 50 Ml Syringe IV 07/07/24 20:03 Q15MIN PRN BG <50 OR BG <70 & pt unresponsive Duloxetine HCl 30 mg 06/07/24 21:00 06/07/24 21:37 Duloxetine Hcl 30 Mg Capsule PO 07/07/24 20:59 30 mg HS IMMANUEL Administration Glucagon 1 mg 06/07/24 20:04 Glucagon Inj 1 Mg Vial IM Q15MIN PRN BG <70, and no IV access Pantoprazole Sodium 80 mg in 100 mls @ 10 mls/hr 06/07/24 16:43 06/07/24 21:41 Protonix/Ns 80mg Iv Premix IV 06/10/24 14:42 10 mls/hr Q10H IMMANUEL Administration Insulin Human Lispro 0 unit 06/08/24 06:00 06/08/24 06:15 Insulin Lispro (Admelog) 1 Unit/0.01 Ml Unit SC 07/08/24 05:59 Not Given Q6HR IMMANUEL Protocol Ondansetron HCl 4 mg 06/07/24 20:01 Ondansetron Inj 2 Mg/Ml Inj 2 Ml IV 07/07/24 20:00 Q6H PRN NAUSEA OR VOMITING Protocol Plan 83 y/o F with PMHx of Hypertension, paroxysmal atrial fibrillation, Asthma/COPD on 2 L nasal cannula oxygenation, insulin-dependent type 2 diabetes, MDD presenting to the ED on 06/07 after lab work from [facility] showed a hemoglobin 5.2 was transfused 2pRBCs. Admitted for GI bleed. GI specialist, Dr. Kraft consulted. #? Upper vs. Lower GI Bleed #Iron Deficiency Anemia Patient lives on SNF had labs drawn showing low Hg, on admission in the ED Hg 5.2 MCV of 62, Iron studies show iron deficiency anemia FOBT was positive, GI Dr. Kraft was consulted in the ED Was transfused 2 units of pRBCs, current Hg 7.7 - Protonix gtt - Clear liquid, will transition to n.p.o. after midnight for EGD in the AM 06/08 - EGD today #Paroxysmal Atrial Fibrillation Patient has documented history of paroxysmal atrial fibrillation On Eliquis 5 mg p.o. twice daily sinus rhythm rate controlled - Eliquis on hold due to suspected GI bleed #Hypertension - Restarted home medication amlodipine 5mg #Insulin-dependent Type 2 Diabetes Last A1c from shows 6.1 back in 2021 Patient possibly on insulin, is not sure of her medications as they are given to her at [facility] - Follow-up on A1c - Sliding scale insulin - hypoglycemia protocol in place #Major Depression Disorder Patient has extensive history, as noted from past chart history - On duloxetine 30 mg p.o. daily Case discussed with my senior Dr. Lennon PGY-[address] Candis Begum MD PGY-1 Disposition: MedTele Fluids: None Feeding: NPO Thrombo prophylaxis: SCDs Gastric Ulcer prophylaxis: Pantoprazole CODE STATUS: DNR Attending Provider Attestation/Addendum I have examined the patient, reviewed labs and imaging findings, discussed the case with the resident(s), and reviewed entered orders. I agree with the plan of care as outlined in this note, with these additional summaries/recommendations: Patient seen at bedside. Patient was admitted overnight for symptomatic anemia secondary to GI bleed. Hemoglobin on admission 5.2 and patient received 2 units PRBCs with improvement of hemoglobin to 7.7. Iron panel obtained indicating severe iron deficiency anemia with ferritin 4 and iron 15 concerning for colon cancer. FOBT positive. GI was consulted and patient underwent EGD which revealed esophagitis, gastritis and normal duodenum. Patient started on clear liquid diet and GoLytely and will go for colonoscopy. Continue to monitor closely for further bleeding. Patient has history of paroxysmal atrial fibrillation and continue to hold Eliquis in setting of GI bleed. Continue insulin sliding scale for diabetes mellitus type 2. Repeat hematology and chemistry panel in AM. Dr. Chirinos
[2024-06-08 10:57] LABS: Misc Send Out* See Sep Rpt
[2024-06-08] MEDS: NA SU/NAHCO3/KC/PEG (Golytely) 4,000 ML BTL 4000 ML PO (14:09)
[2024-06-08 15:15] LABS: Hematocrit 28.1 % (36.0-46.0)
[2024-06-08 15:25] LABS: Hemoglobin 8.2 g/dL (12.0-16.0)
--- NOTE | 2024-06-08 20:28 | PC.NURSE ---
Contacted and notified ,
--- NOTE | 2024-06-08 20:28 | PC.NURSE ---
Contacted and notified MDTanousian regarding patient's refusal of Cymbalta.
[2024-06-08] MEDS: PANTOPRAZOLE/NS 80MG IV PREMIX 80 MG/100 ML BAG 10 MG IV (21:58)
[2024-06-09] VITALS (9 sets, daily range): BP systolic 124–143; BP diastolic 54–61; PULSE 58–85; RESP 16–18; TEMP 36.3–37.2; O2SAT 94–100
[2024-06-09 05:42] LABS: Basophils # (Auto) 0.1 Thou/mm3 (0.0-0.2); Basophils % (Auto) 1 % (0-2.5); Eosinophils # (Auto) 0.3 Thou/mm3 (0.0-0.5); Eosinophils % (Auto) 4 % (0-10); Immature Granulocytes % (Auto) 0 % (0-0); Immature Granulocytes Auto 0.03 Thou/mm3 (0.00-0.00); Lymphocytes # (Auto) 1.5 Thou/mm3 (1.0-4.8); Lymphocytes % (Auto) 21 % (10-50); Mean Corpuscular HGB Conc 28.8 g/dl (31.0-37.0); Mean Corpuscular Hemoglobin 20.5 pg (25.0-35.0); Mean Corpuscular Volume 71 fL (80-100); Monocytes # (Auto) 0.7 Thou/mm3 (0.0-0.8); Monocytes % (Auto) 10 % (0-12); Neutrophils # (Auto) 4.5 Thou/mm3 (1.8-7.7); Neutrophils % (Auto) 64 % (37-80); Nucleated Red Blood Cell % 0 /100 WBC (0); Platelet Count 236 Thou/mm3 (140-440); RDW Standard Deviation 66.1 fL (36.4-46.3); Red Blood Count 3.66 Miln/mm3 (4.00-5.20)
[2024-06-09 05:51] LABS: Hemoglobin 7.5 g/dL (12.0-16.0)
[2024-06-09 06:33] LABS: Carbon Dioxide 27.5 mMol/L (20.0-31.0); Chloride 106 mMol/L (98-107); Potassium 4.5 mMol/L (3.4-5.1); Sodium 140 mMol/L (136-145)
[2024-06-09 06:34] LABS: Alanine Aminotransferase < 7 U/L (10-49); Albumin, Serum 3.5 gm/dL (3.4-4.8); Albumin/Globulin Ratio 1.5 (1.2-2.2); Alkaline Phosphatase 78 U/L (46-116); Anion Gap 7 (7-16); Aspartate Amino Transferase 12 U/L (0-34); BUN/Creatinine Ratio 32 Ratio (12-20); Bilirubin,Total 0.4 mg/dL (0.3-1.2); Blood Urea Nitrogen 16 mg/dL (9-23); Calcium 8.5 mg/dL (8.3-10.6); Calcium (Corrected) 8.9 mg/dL (8.5-10.1); Creatinine (Component) 0.5 mg/dL (0.6-1.3); Estimated Creatinine Clearance 86.2 mL/min (>60); Globulin 2.4 gm/dL (2.3-3.5); Glucose 68 mg/dL (74-106); Osmolality,Calculated 278 (275-295); Total Protein 5.9 gm/dL (5.7-8.2); eGFR > 60 See Note
--- NOTE | 2024-06-09 08:52 | ESPR_ITS ---
Documentation for date of: 06/09/24 ATTESTATION: I saw and examined the patient this morning, and I agree with current management stated by the resident. Will continue to monitor patient during their stay. Disclaimer: Despite multiple revisions, due to the dictation software being used, the document bellow may not be free of grammatical errors including phonetic/typographic errors. However, this does not deter from our commitment to providing health care in the patient's best interest in mind. Dr. Aubrey Lennon, PGY-3 Subjective Subjective Interval history: Patient seen today at the bedside found awake, alert, oriented x3. No overnight events reported. Patient endorses some itching in bilateral upper extremities, was given benadryl as taken at home however a few hours later patient was very sleepy and not oriented, will be held and given calamin lotion instead. Vital signs stable at this time. Hemoglobin has remained stable at this time. EGD only showed some gastritis, was planned for golytely prep and colonoscopy however patient is not clear and will be rescheduled for tomorrow. UA was done and showed signs of UTI and was started on Ceftriaxone. Exam Vital Signs Temp Pulse Resp BP Pulse Ox O2 Del Method O2 Flow Rate 97.5 F 64 18 143/61 H 100 Nasal Cannula 3 06/09/24 08:00 06/09/24 08:00 06/09/24 08:00 06/09/24 08:00 06/09/24 08:00 06/09/24 08:00 06/09/24 08:00 Narrative Exam Physical Exam GENERAL: NAD, AAOx2-3, pale HEENT: Moist mucosa. Eyes open, symmetrical, & clear CARDIO: Heart RRR, no obvious murmurs PULM: No noted coughing/dyspnea CTA B/L, no R/W/R GI: Abdomen soft, nondistended, no pain on palpation. BSx4 SKIN/MSK/EXT: No wounds/rashes/edema/amputations, no pain on palpation. Pedal pulses present B/L NEURO: AAOx2-3, no focal neuro deficits, able to move all 4 extremities Objective Labs 06/09/24 04:39 06/09/24 04:39 Labs: Laboratory Results - last 24 hr 06/08/24 06/08/24 06/09/24 05:35 14:54 04:39 WBC 7.0 RBC 3.66 L Hgb 8.2 L 7.5 L Hct 28.1 L 26.0 L MCV 71 L MCH 20.5 L MCHC 28.8 L RDW Std Deviation 66.1 H Plt Count 236 Neut % (Auto) 64 Lymph % (Auto) 21 [place] % (Auto) 10 Eos % (Auto) 4 Baso % (Auto) 1 Neut # (Auto) 4.5 Lymph # (Auto) 1.5 [place] # (Auto) 0.7 Eos # (Auto) 0.3 Baso # (Auto) 0.1 Immature Gran # (Auto) 0.03 H Absolute Nucleated RBC 0.00 Immature Gran % 0 Nucleated RBC % 0 Sodium 140 Potassium 4.5 Chloride 106 Carbon Dioxide 27.5 Anion Gap 7 BUN 16 Creatinine 0.5 L Estim Creat Clear Calc 86.2 eGFR > 60 BUN/Creatinine Ratio 32 H Glucose [address] Glu mg/dL Cancelled Hemoglobin A1c Cancelled Calculated Osmolality 278 Calcium 8.5 Corrected Calcium 8.9 Total Bilirubin 0.4 AST 12 ALT < 7 L Alkaline Phosphatase 78 Total Protein 5.9 Albumin 3.5 Globulin 2.4 Albumin/Globulin Ratio 1.5 Free T4 0.91 Quality Measures Quality Measures none Advance care planning discussed with:: patient Assessment & Plan Assessment Current Active Medications: Generic Name Dose Route Start Last Admin Trade Name Freq PRN Reason Stop Dose Admin Acetaminophen 650 mg 06/07/24 20:01 Acetaminophen 325 Mg Tablet PO 07/07/24 20:00 Q6H PRN Pain 1-3 and/or Fever >100.1 Hydrocodone Bitart/Acetaminophen 1 tab 06/07/24 20:01 Hydrocodone/Apap 5/325 Tablet PO 06/12/24 20:00 Q4HR PRN PAIN SCALE 4-6 (Moderate Hydrocodone Bitart/Acetaminophen 1 tab 06/07/24 20:01 Hydrocodone/Apap 10/325 Tab PO 06/12/24 20:00 Q4HR PRN PAIN SCALE 7-10 (Severe Amlodipine Besylate 5 mg 06/08/24 09:00 06/08/24 09:52 Amlodipine Besylate 5 Mg Tablet PO 07/08/24 08:59 Not Given QDAY IMMANUEL Dextrose 25 ml 06/07/24 20:04 Dextrose 50%-Water Inj 50 Ml Syringe IV 01/22/25 20:03 Q15MIN PRN BG 50-70 responsive npo pt Dextrose 50 ml 06/07/24 20:04 Dextrose 50%-Water Inj 50 Ml Syringe IV 07/07/24 20:03 Q15MIN PRN BG <50 OR BG <70 & pt unresponsive Diphenhydramine HCl 25 mg 06/09/24 09:00 Diphenhydramine 25 Mg Capsule PO 07/09/24 08:59 BID IMMANUEL Duloxetine HCl 30 mg 06/07/24 21:00 06/08/24 20:24 Duloxetine Hcl 30 Mg Capsule PO 07/07/24 20:59 Not Given HS IMMANUEL Glucagon 1 mg 06/07/24 20:04 Glucagon Inj 1 Mg Vial IM Q15MIN PRN BG <70, and no IV access Pantoprazole Sodium 80 mg in 100 mls @ 10 mls/hr 06/07/24 16:43 06/08/24 21:58 Protonix/Ns 80mg Iv Premix IV 06/10/24 14:42 10 mls/hr Q10H IMMANUEL Administration Insulin Human Lispro 0 unit 06/08/24 06:00 06/09/24 05:00 Insulin Lispro (Admelog) 1 Unit/0.01 Ml Unit SC 07/08/24 05:59 Not Given Q6HR IMMANUEL Protocol Ondansetron HCl 4 mg 06/07/24 20:01 Ondansetron Inj 2 Mg/Ml Inj 2 Ml IV 07/07/24 20:00 Q6H PRN NAUSEA OR VOMITING Protocol Plan 83 y/o F with PMHx of Hypertension, paroxysmal atrial fibrillation, Asthma/COPD on 2 L nasal cannula oxygenation, insulin-dependent type 2 diabetes, MDD presenting to the ED on 06/07 after lab work from [facility] showed a hemoglobin 5.2 was transfused 2pRBCs. Admitted for GI bleed. GI specialist, Dr. Kraft consulted. #? Upper vs. Lower GI Bleed #Iron Deficiency Anemia Patient lives on SNF had labs drawn showing low Hg, on admission in the ED Hg 5.2 MCV of 62, Iron studies show iron deficiency anemia FOBT was positive, GI Dr. Kraft was consulted in the ED Was transfused 2 units of pRBCs, current Hg 7.7 EGD showed some gastritis, GI plans to do colonoscopy today however patient was not clear and will reschedule for tomorrow - Protonix drip - golytely prep - pending colonoscopy tomorrow - GI on case, appreciate recommendations #UTI patients mental status AAOx1-2 UA was done and showed signs of UTI - started on Ceftriaxone 1g qday -f/u urine culture #Paroxysmal Atrial Fibrillation Patient has documented history of paroxysmal atrial fibrillation On Eliquis 5 mg p.o. twice daily sinus rhythm rate controlled - Eliquis on hold due to suspected GI bleed #Hypertension - Restarted home medication amlodipine 5mg #Insulin-dependent Type 2 Diabetes Last A1c from shows 6.1 back in 2021 Patient possibly on insulin, is not sure of her medications as they are given to her at [facility] - Follow-up on A1c, was sent out - Sliding scale insulin - hypoglycemia protocol in place #Major Depression Disorder Patient has extensive history, as noted from past chart history - On duloxetine 30 mg p.o. daily Case discussed with my senior Dr. Lennon PGY-[address] Candis Begum MD PGY-1 Disposition: MedTele Fluids: None Feeding: NPO Thrombo prophylaxis: SCDs Gastric Ulcer prophylaxis: Pantoprazole CODE STATUS: DNR Attending Provider Attestation/Addendum I have examined the patient, reviewed labs and imaging findings, discussed the case with the resident(s), and reviewed entered orders. I agree with the plan of care as outlined in this note, with these additional summaries/recommendations: Patient seen at bedside. Patient admitted for symptomatic anemia secondary to GI bleed. Hemoglobin on admission 5.2 and patient received 2 units PRBCs with improvement of hemoglobin to 7.7. Iron panel obtained indicating severe iron deficiency anemia with ferritin 4 and iron 15 concerning for colon cancer. FOBT positive. GI was consulted and patient underwent EGD which revealed esophagitis, gastritis and normal duodenum. Patient started on clear liquid diet, GoLytely, and will go for colonoscopy. Continue to monitor closely for further bleeding. Patient has history of paroxysmal atrial fibrillation and continue to hold Eliquis in setting of GI bleed. Continue insulin sliding scale for diabetes mellitus type 2. Repeat hematology and chemistry panel in AM. Dr. Chirinos
[2024-06-09] MEDS: DiphenhydrAMINE 25 MG CAPSULE PO (09:29)
[2024-06-09] MEDS: amLODIPine BESYLATE 5 MG TABLET PO (09:29)
[2024-06-09] MEDS: PANTOPRAZOLE/NS 80MG IV PREMIX 80 MG/100 ML BAG 10 MG IV (10:10)
--- NOTE | 2024-06-09 10:51 | PC.SS ---
S[employer] SALES CONSULTANT confirmed with [employer] staff (Lorraine) that patient possesses coverage for transport.
[2024-06-09 13:48] LABS: Collection Type, Urine Clean Catch
[2024-06-09 13:56] LABS: Bacteria,Urine 4+; Bilirubin,Urine Negative (Negative); Blood,Urine Negative (Negative); Clarity,Urine Clear (Clear/Hazy); Color,Urine Yellow (Lt Yel-Yel); Glucose, Urine Negative (Negative); Hyaline Casts,Urine < 1 /hpf (0-1); Ketones,Urine Negative (Negative); Leukocyte Esterase,Urine Negative (Negative); Nitrite,Urine Positive (Negative); Protein,Urine Negative (Neg - Trace); RBC,Urine 1 /hpf (0-3); Specific Gravity,Urine 1.018 (1.001-1.035); Squamous Epithelial Cell,Urine 1 /hpf (0-5); Urobilinogen,Urine Negative mg/dL (0.0-1.0); WBC,Urine 1 /hpf (0-5)
--- NOTE | 2024-06-09 14:11 | ESPR_ITS ---
Documentation for date of: 06/09/24 Subjective Subjective Interval history: Hemoglobin hematocrit 7.5 and 26.0 Patient was scheduled for a colonoscopy today as upper endoscopy only showed gastritis and esophagitis Additional GoLytely will be given as patient is not clear Colonoscopy rescheduled for tomorrow hopefully should be cleaned by that time Exam Vital Signs Temp Pulse Resp BP Pulse Ox O2 Del Method O2 Flow Rate 97.8 F 58 L 17 124/54 L 100 Nasal Cannula 3 06/09/24 11:52 06/09/24 11:52 06/09/24 11:52 06/09/24 11:52 06/09/24 11:52 06/09/24 11:52 06/09/24 11:52 Objective Labs 06/09/24 04:39 06/09/24 04:39 Labs: Laboratory Results - last 24 hr 06/08/24 06/09/24 06/09/24 14:54 04:39 13:30 WBC 7.0 RBC 3.66 L Hgb 8.2 L 7.5 L Hct 28.1 L 26.0 L MCV 71 L MCH 20.5 L MCHC 28.8 L RDW Std Deviation 66.1 H Plt Count 236 Neut % (Auto) 64 Lymph % (Auto) 21 [place] % (Auto) 10 Eos % (Auto) 4 Baso % (Auto) 1 Neut # (Auto) 4.5 Lymph # (Auto) 1.5 [place] # (Auto) 0.7 Eos # (Auto) 0.3 Baso # (Auto) 0.1 Immature Gran # (Auto) 0.03 H Absolute Nucleated RBC 0.00 Immature Gran % 0 Nucleated RBC % 0 Sodium 140 Potassium 4.5 Chloride 106 Carbon Dioxide 27.5 Anion Gap 7 BUN 16 Creatinine 0.5 L Estim Creat Clear Calc 86.2 eGFR > 60 BUN/Creatinine Ratio 32 H Glucose 68 L Calculated Osmolality 278 Calcium 8.5 Corrected Calcium 8.9 Total Bilirubin 0.4 AST 12 ALT < 7 L Alkaline Phosphatase 78 Total Protein 5.9 Albumin 3.5 Globulin 2.4 Albumin/Globulin Ratio 1.5 Ur Collection Type Clean Catch Urine Color Yellow Urine Clarity Clear Urine pH 5.0 Ur Specific [place] 1.018 Urine Protein Negative Urine Glucose (UA) Negative Urine Ketones Negative Urine Blood Negative Urine Nitrite Positive Urine Bilirubin Negative Urine Urobilinogen (Auto) Negative Ur Leukocyte Esterase Negative Urine RBC 1 Urine WBC 1 Ur Squamous Epith Cells 1 Urine Bacteria 4+ A Hyaline Casts < 1 Impressions Impression: # Posthemorrhagic anemia # Gastritis # Esophagitis GoLytely prep to continue Colonoscopy a.m. Assessment & Plan A&P Narrative # Posthemorrhagic anemia with a significant drop in hemoglobin hematocrit from 07/31/2022 whether this is acute or chronic is unknown at the present She definitely is Hemoccult positive At the intermediate patient Suggestions Agree with the blood transfusion Clear liquid diet N.p.o. midnight tonight except p.o. meds Consent obtained for fiberoptic esophagogastroduodenoscopy with possible therapeutic intervention possible biopsy under intravenous moderate sedation scheduled for tomorrow morning In case the upper endoscopy is negative we will consider doing a fibrotic colonoscopy before then the patient back to intermediate Other medical problems include # IDDM # Essential hypertension # Bronchial asthma Thank you once again for the opportunity to participate in the care of this patient Time Spent With Patient Time: Total time spent is greater than 50% in coordination of care (as documented) at patient's floor/unit and/or counseling patient:
[2024-06-09] MEDS: cefTRIAXone/D5w 1gm IV premix 50 ML IV (14:35)
--- NOTE | 2024-06-09 14:35 | PC.SS ---
Rounding Note: Patient received EGD yesterday. Plan is for colonoscopy. Patient to d/c to SNF.
[2024-06-09] MEDS: DULoxetine HCL 30 MG CAPSULE PO (20:21)
[2024-06-09] MEDS: INSULIN LISPRO (AdmeLOG) 1 UNIT/0.01 ML UNIT SC (23:34)
[2024-06-10] VITALS (9 sets, daily range): BP systolic 124–143; BP diastolic 52–58; PULSE 60–70; RESP 15–18; TEMP 36.2–36.5; O2SAT 92–98; BMI 25.9
[2024-06-10 06:06] LABS: Basophils % (Auto) 1 % (0-2.5); Eosinophils # (Auto) 0.3 Thou/mm3 (0.0-0.5); Eosinophils % (Auto) 3 % (0-10); Immature Granulocytes % (Auto) 0 % (0-0); Immature Granulocytes Auto 0.03 Thou/mm3 (0.00-0.00); Lymphocytes # (Auto) 1.3 Thou/mm3 (1.0-4.8); Lymphocytes % (Auto) 18 % (10-50); Mean Corpuscular HGB Conc 29.6 g/dl (31.0-37.0); Mean Corpuscular Hemoglobin 20.8 pg (25.0-35.0); Mean Corpuscular Volume 70 fL (80-100); Monocytes # (Auto) 0.8 Thou/mm3 (0.0-0.8); Monocytes % (Auto) 11 % (0-12); Neutrophils # (Auto) 4.9 Thou/mm3 (1.8-7.7); Neutrophils % (Auto) 67 % (37-80); Nucleated Red Blood Cell % 0 /100 WBC (0); Platelet Count 221 Thou/mm3 (140-440); RDW Standard Deviation 65.6 fL (36.4-46.3); Red Blood Count 3.71 Miln/mm3 (4.00-5.20); White Blood Count 7.3 Thou/mm3 (3.6-11.0)
[2024-06-10 06:52] LABS: Alanine Aminotransferase < 7 U/L (10-49); Albumin, Serum 3.7 gm/dL (3.4-4.8); Albumin/Globulin Ratio 1.6 (1.2-2.2); Alkaline Phosphatase 81 U/L (46-116); Anion Gap 6 (7-16); Aspartate Amino Transferase 11 U/L (0-34); BUN/Creatinine Ratio 30 Ratio (12-20); Bilirubin,Total 0.4 mg/dL (0.3-1.2); Blood Urea Nitrogen 15 mg/dL (9-23); Calcium 8.7 mg/dL (8.3-10.6); Calcium (Corrected) 8.9 mg/dL (8.5-10.1); Carbon Dioxide 28.7 mMol/L (20.0-31.0); Chloride 103 mMol/L (98-107); Creatinine (Component) 0.5 mg/dL (0.6-1.3); Estimated Creatinine Clearance 85.6 mL/min (>60); Globulin 2.3 gm/dL (2.3-3.5); Glucose 73 mg/dL (74-106); Osmolality,Calculated 275 (275-295); Potassium 4.2 mMol/L (3.4-5.1); Sodium 138 mMol/L (136-145); eGFR > 60 See Note
[2024-06-10 06:55] LABS: Hemoglobin 7.7 g/dL (12.0-16.0)
[2024-06-10] MEDS: amLODIPine BESYLATE 5 MG TABLET PO (08:28)
[2024-06-10] MEDS: cefTRIAXone/D5w 1gm IV premix 50 ML IV (08:28)
[2024-06-10] MEDS: PANTOPRAZOLE INJ 40 MG VIAL IVP (08:29)
--- NOTE | 2024-06-10 13:03 | ESPR_ITS ---
Documentation for date of: 06/10/24 ATTESTATION: I saw and examined the patient this morning, and I agree with current management stated by the resident. Will continue to monitor patient during their stay. Disclaimer: Despite multiple revisions, due to the dictation software being used, the document bellow may not be free of grammatical errors including phonetic/typographic errors. However, this does not deter from our commitment to providing health care in the patient's best interest in mind. Dr. Aubrey Lennon, PGY-3 Subjective Subjective Interval history: Patient seen today at the bedside found awake, alert, orientedx2-3. No overnight events reported. States no active complaints, wants to go home. Vital signs stable at this time. Mentation has improved patient is more interactive today. Patient is undergoing golytely prep for colonoscopy today, as patient has not been clear. Exam Vital Signs Temp Pulse Resp BP Pulse Ox O2 Del Method O2 Flow Rate 97.5 F 60 18 130/58 L 95 Nasal Cannula 1 06/10/24 11:40 06/10/24 11:40 06/10/24 11:40 06/10/24 11:40 06/10/24 11:40 06/10/24 11:40 06/10/24 11:40 Narrative Exam Physical Exam GENERAL: NAD, AAOx2-3, pale HEENT: Moist mucosa. Eyes open, symmetrical, & clear CARDIO: Heart RRR, no obvious murmurs PULM: No noted coughing/dyspnea CTA B/L, no R/W/R GI: Abdomen soft, nondistended, no pain on palpation. BSx4 SKIN/MSK/EXT: No wounds/rashes/edema/amputations, no pain on palpation. Pedal pulses present B/L NEURO: AAOx2-3, no focal neuro deficits, able to move all 4 extremities Objective Labs 06/10/24 05:12 06/10/24 05:12 Labs: Laboratory Results - last 24 hr 06/09/24 06/10/24 13:30 05:12 WBC 7.3 RBC 3.71 L Hgb 7.7 L Hct 26.0 L MCV 70 L MCH 20.8 L MCHC 29.6 L RDW Std Deviation 65.6 H Plt Count 221 Neut % (Auto) 67 Lymph % (Auto) 18 [place] % (Auto) 11 Eos % (Auto) 3 Baso % (Auto) 1 Neut # (Auto) 4.9 Lymph # (Auto) 1.3 [place] # (Auto) 0.8 Eos # (Auto) 0.3 Baso # (Auto) 0.0 Immature Gran # (Auto) 0.03 H Absolute Nucleated RBC 0.00 Immature Gran % 0 Nucleated RBC % 0 Sodium 138 Potassium 4.2 Chloride 103 Carbon Dioxide 28.7 Anion Gap 6 L BUN 15 Creatinine 0.5 L Estim Creat Clear Calc 85.6 eGFR > 60 BUN/Creatinine Ratio 30 H Glucose 73 L Calculated Osmolality 275 Calcium 8.7 Corrected Calcium 8.9 Total Bilirubin 0.4 AST 11 ALT < 7 L Alkaline Phosphatase 81 Total Protein 6.0 Albumin 3.7 Globulin 2.3 Albumin/Globulin Ratio 1.6 Ur Collection Type Clean Catch Urine Color Yellow Urine Clarity Clear Urine pH 5.0 Ur Specific [place] 1.018 Urine Protein Negative Urine Glucose (UA) Negative Urine Ketones Negative Urine Blood Negative Urine Nitrite Positive Urine Bilirubin Negative Urine Urobilinogen (Auto) Negative Ur Leukocyte Esterase Negative Urine RBC 1 Urine WBC 1 Ur Squamous Epith Cells 1 Urine Bacteria 4+ A Hyaline Casts < 1 Quality Measures Quality Measures none Advance care planning discussed with:: patient Assessment & Plan Assessment Current Active Medications: Generic Name Dose Route Start Last Admin Trade Name Freq PRN Reason Stop Dose Admin Acetaminophen 650 mg 06/07/24 20:01 Acetaminophen 325 Mg Tablet PO 07/07/24 20:00 Q6H PRN Pain 1-3 and/or Fever >100.1 Amlodipine Besylate 5 mg 06/08/24 09:00 06/10/24 08:28 Amlodipine Besylate 5 Mg Tablet PO 07/08/24 08:59 5 mg QDAY IMMANUEL Administration Calamine 0 ml 06/09/24 11:11 Calamine Lotion 120 Ml Btl TOP 07/09/24 11:10 UD PRN ITCHING Dextrose 25 ml 06/07/24 20:04 Dextrose 50%-Water Inj 50 Ml Syringe IV 07/07/24 20:03 Q15MIN PRN BG 50-70 responsive npo pt Dextrose 50 ml 06/07/24 20:04 Dextrose 50%-Water Inj 50 Ml Syringe IV 07/07/24 20:03 Q15MIN PRN BG <50 OR BG <70 & pt unresponsive Duloxetine HCl 30 mg 06/07/24 21:00 06/09/24 20:21 Duloxetine Hcl 30 Mg Capsule PO 07/07/24 20:59 30 mg HS IMMANUEL Administration Glucagon 1 mg 06/07/24 20:04 Glucagon Inj 1 Mg Vial IM Q15MIN PRN BG <70, and no IV access Ceftriaxone Sodium/Dextrose 50 mls @ 100 mls/hr 06/09/24 14:09 06/10/24 08:28 Rocephin/D5w 1gm Iv Premix IV 06/16/24 14:08 100 mls/hr QDAY IMMANUEL Administration Insulin Human Lispro 0 unit 06/08/24 06:00 06/10/24 11:53 Insulin Lispro (Admelog) 1 Unit/0.01 Ml Unit SC 07/08/24 05:59 Not Given Q6HR IMMANUEL Protocol Ondansetron HCl 4 mg 06/07/24 20:01 Ondansetron Inj 2 Mg/Ml Inj 2 Ml IV 07/07/24 20:00 Q6H PRN NAUSEA OR VOMITING Protocol Pantoprazole Sodium 40 mg 06/10/24 09:00 06/10/24 08:29 Pantoprazole Inj 40 Mg Vial IVP 07/10/24 08:59 40 mg QDAY IMMANUEL Administration Plan 83 y/o F with PMHx of Hypertension, paroxysmal atrial fibrillation, Asthma/COPD on 2 L nasal cannula oxygenation, insulin-dependent type 2 diabetes, MDD presenting to the ED on 06/07 after lab work from [facility] showed a hemoglobin 5.2 was transfused 2pRBCs. Admitted for GI bleed. GI specialist, Dr. Kraft consulted. #? Upper vs. Lower GI Bleed #Iron Deficiency Anemia Patient lives on SNF had labs drawn showing low Hg, on admission in the ED Hg 5.2 MCV of 62, Iron studies show iron deficiency anemia FOBT was positive, GI Dr. Kraft was consulted in the ED Was transfused 2 units of pRBCs, current Hg 7.7 EGD showed some gastritis, GI plans to do colonoscopy today however patient was not clear and will reschedule for tomorrow - Protonix drip - golytely prep - pending colonoscopy - GI on case, appreciate recommendations #UTI patients mental status AAOx1-2 UA was done and showed signs of UTI urine cultures grew GNR - on Ceftriaxone 1g qday #Paroxysmal Atrial Fibrillation Patient has documented history of paroxysmal atrial fibrillation On Eliquis 5 mg p.o. twice daily sinus rhythm rate controlled - Eliquis on hold due to suspected GI bleed #Hypertension - Restarted home medication amlodipine 5mg #Insulin-dependent Type 2 Diabetes Last A1c from shows 6.1 back in 2021 Patient possibly on insulin, is not sure of her medications as they are given to her at [place] [facility] - Follow-up on A1c, was sent out - Sliding scale insulin - hypoglycemia protocol in place #Major Depression Disorder Patient has extensive history, as noted from past chart history - On duloxetine 30 mg p.o. daily Case discussed with my senior Dr. Lennon PGY-[address] Candis Begum MD PGY-1 Disposition: MedTele Fluids: None Feeding: NPO Thrombo prophylaxis: SCDs Gastric Ulcer prophylaxis: Pantoprazole CODE STATUS: DNR Attending Provider Attestation/Addendum I have examined the patient, reviewed labs and imaging findings, discussed the case with the resident(s), and reviewed entered orders. I agree with the plan of care as outlined in this note, with these additional summaries/recommendations: Patient seen at bedside. No acute overnight events. Patient appears more alert today and seen drinking golytely. Patient admitted for symptomatic anemia secondary to GI bleed. Hemoglobin on admission 5.2 and patient received 2 units PRBCs with improvement of hemoglobin to 7.7. Iron panel obtained indicating severe iron deficiency anemia with ferritin 4 and iron 15 concerning for colon cancer. FOBT positive. GI was consulted and patient underwent EGD which revealed esophagitis, gastritis and normal duodenum. Source of bleeding not identified on EGD. Patient started on clear liquid diet, GoLytely, and will go for colonoscopy. Continue to monitor closely for further bleeding. Patient has history of paroxysmal atrial fibrillation and continue to hold Eliquis in setting of GI bleed. Continue insulin sliding scale for diabetes mellitus type 2. Repeat hematology and chemistry panel in AM. Dr. Chirinos
--- NOTE | 2024-06-10 17:03 | PD.IMPROG ---
Documentation for date of: 06/10/24 Subjective Subjective Interval history: Hemoglobin hematocrit 7.7 and 26.0 Patient not cleared for colonoscopy today Spoke with the RN and additional GoLytely Procedure rescheduled for tomorrow Exam Vital Signs Temp Pulse Resp BP Pulse Ox O2 Del Method O2 Flow Rate 97.7 F 64 17 124/52 L 97 Room Air 1 06/10/24 16:00 06/10/24 16:00 06/10/24 16:00 06/10/24 16:00 06/10/24 16:00 06/10/24 16:00 06/10/24 11:40 Constitutional Comments: Chronically ill-appearing Routine Abdominal Exam Comments: Soft nontender Objective Labs 06/10/24 05:12 06/10/24 05:12 Labs: Laboratory Results - last 24 hr 06/10/24 05:12 WBC 7.3 RBC 3.71 L Hgb 7.7 L Hct 26.0 L MCV 70 L MCH 20.8 L MCHC 29.6 L RDW Std Deviation 65.6 H Plt Count 221 Neut % (Auto) 67 Lymph % (Auto) 18 [place] % (Auto) 11 Eos % (Auto) 3 Baso % (Auto) 1 Neut # (Auto) 4.9 Lymph # (Auto) 1.3 [place] # (Auto) 0.8 Eos # (Auto) 0.3 Baso # (Auto) 0.0 Immature Gran # (Auto) 0.03 H Absolute Nucleated RBC 0.00 Immature Gran % 0 Nucleated RBC % 0 Sodium 138 Potassium 4.2 Chloride 103 Carbon Dioxide 28.7 Anion Gap 6 L BUN 15 Creatinine 0.5 L Estim Creat Clear Calc 85.6 eGFR > 60 BUN/Creatinine Ratio 30 H Glucose 73 L Calculated Osmolality 275 Calcium 8.7 Corrected Calcium 8.9 Total Bilirubin 0.4 AST 11 ALT < 7 L Alkaline Phosphatase 81 Total Protein 6.0 Albumin 3.7 Globulin 2.3 Albumin/Globulin Ratio 1.6 Impressions Impression: # Posthemorrhagic anemia Additional GoLytely Colonoscopy scheduled for tomorrow # Gastritis # Esophagitis Assessment & Plan A&P Narrative # Posthemorrhagic anemia with a significant drop in hemoglobin hematocrit from 07/31/2022 whether this is acute or chronic is unknown at the present She definitely is Hemoccult positive At the long-term patient Suggestions Agree with the blood transfusion Clear liquid diet N.p.o. midnight tonight except p.o. meds Consent obtained for fiberoptic esophagogastroduodenoscopy with possible therapeutic intervention possible biopsy under intravenous moderate sedation scheduled for tomorrow morning In case the upper endoscopy is negative we will consider doing a fibrotic colonoscopy before then the patient back to long-term Other medical problems include # IDDM # Essential hypertension # Bronchial asthma Thank you once again for the opportunity to participate in the care of this patient Time Spent With Patient Time: Total time spent is greater than 50% in coordination of care (as documented) at patient's floor/unit and/or counseling patient:
[2024-06-10] MEDS: Artificial Tears 225 DROP/15 ML BTL BOTH EYES (20:52)
[2024-06-10] MEDS: DULoxetine HCL 30 MG CAPSULE PO (20:53)
[2024-06-11] VITALS (9 sets, daily range): BP systolic 121–147; BP diastolic 53–71; PULSE 63–75; RESP 15–88; TEMP 36.3–36.6; O2SAT 90–99
[2024-06-11 08:33] LABS: Basophils # (Auto) 0.1 Thou/mm3 (0.0-0.2); Basophils % (Auto) 1 % (0-2.5); Eosinophils # (Auto) 0.3 Thou/mm3 (0.0-0.5); Eosinophils % (Auto) 5 % (0-10); Hematocrit 28.3 % (36.0-46.0); Immature Granulocytes % (Auto) 0 % (0-0); Immature Granulocytes Auto 0.01 Thou/mm3 (0.00-0.00); Lymphocytes # (Auto) 1.6 Thou/mm3 (1.0-4.8); Lymphocytes % (Auto) 25 % (10-50); Mean Corpuscular HGB Conc 28.6 g/dl (31.0-37.0); Mean Corpuscular Hemoglobin 20.3 pg (25.0-35.0); Mean Corpuscular Volume 71 fL (80-100); Monocytes # (Auto) 0.8 Thou/mm3 (0.0-0.8); Monocytes % (Auto) 13 % (0-12); Neutrophils # (Auto) 3.5 Thou/mm3 (1.8-7.7); Neutrophils % (Auto) 56 % (37-80); Nucleated Red Blood Cell % 0 /100 WBC (0); Platelet Count 220 Thou/mm3 (140-440); RDW Standard Deviation 66.8 fL (36.4-46.3); Red Blood Count 3.99 Miln/mm3 (4.00-5.20); White Blood Count 6.3 Thou/mm3 (3.6-11.0)
[2024-06-11 08:34] LABS: Hemoglobin 8.1 g/dL (12.0-16.0)
--- NOTE | 2024-06-11 09:06 | PC.SS ---
Follow up note: Pt is [facility] resident at [place] and will return at [place]. Colonoscopy is pending.
[2024-06-11 09:12] LABS: Alanine Aminotransferase < 7 U/L (10-49); Albumin, Serum 3.8 gm/dL (3.4-4.8); Albumin/Globulin Ratio 1.6 (1.2-2.2); Alkaline Phosphatase 89 U/L (46-116); Anion Gap 4 (7-16); Aspartate Amino Transferase < 10 U/L (0-34); BUN/Creatinine Ratio 22 Ratio (12-20); Bilirubin,Total 0.4 mg/dL (0.3-1.2); Blood Urea Nitrogen 11 mg/dL (9-23); Calcium 8.6 mg/dL (8.3-10.6); Calcium (Corrected) 8.8 mg/dL (8.5-10.1); Carbon Dioxide 33.4 mMol/L (20.0-31.0); Chloride 102 mMol/L (98-107); Creatinine (Component) 0.5 mg/dL (0.6-1.3); Estimated Creatinine Clearance 85.1 mL/min (>60); Globulin 2.4 gm/dL (2.3-3.5); Glucose 80 mg/dL (74-106); Magnesium 2.1 mg/dL (1.6-2.6); Osmolality,Calculated 275 (275-295); Phosphorous 2.5 mg/dL (2.4-5.1); Potassium 4.3 mMol/L (3.4-5.1); Sodium 139 mMol/L (136-145); Total Protein 6.2 gm/dL (5.7-8.2); eGFR > 60 See Note
[2024-06-11] MEDS: NA SU/NAHCO3/KC/PEG (Golytely) 4,000 ML BTL 4000 ML PO (10:42)
[2024-06-11] MEDS: PANTOPRAZOLE INJ 40 MG VIAL IVP (10:43)
[2024-06-11] MEDS: amLODIPine BESYLATE 5 MG TABLET PO (10:43)
[2024-06-11] MEDS: cefTRIAXone/D5w 1gm IV premix 50 ML IV (10:43)
--- NOTE | 2024-06-11 16:32 | ESPR_ITS ---
<Statement entered by Roxy Worley MD - 06/11/24 22:39> Patient was seen and examined at bedside. No overnight incidents. Patient was supposed to have colonoscopy yesterday however the patient was not cleared by the squirt machine operator Dr. Kraft. She will continue another bottle of GoLytely hopefully patient was cleared today for the colonoscopy. Today her hemoglobin stable at 8.1. No bleeding was reported no nausea or vomiting. - Patient's plan and care discussed with my attending, Dr. Candis Worley MD Internal Medicine PGY-2 Documentation for date of: 06/11/24 Subjective Subjective Interval history: Patient seen today at the bedside found awake, alert, orientedx3. No overnight events reported. States no active complaints. Vital signs stable at this time. Labs unremarkable at this time. At this time patient is still pending colonoscopy as patient is not clear yet. Will continue to monitor at this time. Exam Vital Signs Temp Pulse Resp BP Pulse Ox O2 Del Method O2 Flow Rate 97.9 F 68 17 140/64 H 95 Room Air 1 06/11/24 12:00 06/11/24 12:00 06/11/24 12:00 06/11/24 12:00 06/11/24 12:00 06/11/24 12:00 06/11/24 10:08 Narrative Exam Physical Exam GENERAL: NAD, AAOx2-3, pale HEENT: Moist mucosa. Eyes open, symmetrical, & clear CARDIO: Heart RRR, no obvious murmurs PULM: No noted coughing/dyspnea CTA B/L, no R/W/R GI: Abdomen soft, nondistended, no pain on palpation. BSx4 SKIN/MSK/EXT: No wounds/rashes/edema/amputations, no pain on palpation. Pedal pulses present B/L NEURO: AAOx2-3, no focal neuro deficits, able to move all 4 extremities Objective Labs 06/12/24 05:12 06/12/24 05:12 Labs: Laboratory Results - last 24 hr 06/11/24 08:15 WBC 6.3 RBC 3.99 L Hgb 8.1 L Hct 28.3 L MCV 71 L MCH 20.3 L MCHC 28.6 L RDW Std Deviation 66.8 H Plt Count 220 Neut % (Auto) 56 Lymph % (Auto) 25 [place] % (Auto) 13 H Eos % (Auto) 5 Baso % (Auto) 1 Neut # (Auto) 3.5 Lymph # (Auto) 1.6 [place] # (Auto) 0.8 Eos # (Auto) 0.3 Baso # (Auto) 0.1 Immature Gran # (Auto) 0.01 H Absolute Nucleated RBC 0.00 Immature Gran % 0 Nucleated RBC % 0 Sodium 139 Potassium 4.3 Chloride 102 Carbon Dioxide 33.4 H Anion Gap 4 L BUN 11 Creatinine 0.5 L Estim Creat Clear Calc 85.1 eGFR > 60 BUN/Creatinine Ratio 22 H Glucose 80 Calculated Osmolality 275 Calcium 8.6 Corrected Calcium 8.8 Phosphorus 2.5 Magnesium 2.1 Total Bilirubin 0.4 AST < 10 ALT < 7 L Alkaline Phosphatase 89 Total Protein 6.2 Albumin 3.8 Globulin 2.4 Albumin/Globulin Ratio 1.6 Quality Measures Quality Measures none Advance care planning discussed with:: patient Assessment & Plan Assessment Current Active Medications: Generic Name Dose Route Start Last Admin Trade Name Freq PRN Reason Stop Dose Admin Acetaminophen 650 mg 06/07/24 20:01 Acetaminophen 325 Mg Tablet PO 07/07/24 20:00 Q6H PRN Pain 1-3 and/or Fever >100.1 Amlodipine Besylate 5 mg 06/08/24 09:00 06/11/24 10:43 Amlodipine Besylate 5 Mg Tablet PO 07/08/24 08:59 5 mg QDAY IMMANUEL Administration Artificial Tears 1 drop 06/10/24 20:12 06/10/24 20:52 Artificial Tears 225 Drop/15 Ml Btl BOTH EYES 07/10/24 20:11 1 drop PRN PRN Administration TO KEEP EYES MOIST Calamine 0 ml 06/09/24 11:11 Calamine Lotion 120 Ml Btl TOP 07/09/24 11:10 UD PRN ITCHING Dextrose 25 ml 06/07/24 20:04 Dextrose 50%-Water Inj 50 Ml Syringe IV 07/07/24 20:03 Q15MIN PRN BG 50-70 responsive npo pt Dextrose 50 ml 06/07/24 20:04 Dextrose 50%-Water Inj 50 Ml Syringe IV 07/07/24 20:03 Q15MIN PRN BG <50 OR BG <70 & pt unresponsive Duloxetine HCl 30 mg 06/07/24 21:00 06/10/24 20:53 Duloxetine Hcl 30 Mg Capsule PO 07/07/24 20:59 30 mg HS IMMANUEL Administration Glucagon 1 mg 06/07/24 20:04 Glucagon Inj 1 Mg Vial IM Q15MIN PRN BG <70, and no IV access Ceftriaxone Sodium/Dextrose 50 mls @ 100 mls/hr 06/09/24 14:09 06/11/24 10:43 Rocephin/D5w 1gm Iv Premix IV 06/16/24 14:08 100 mls/hr QDAY IMMANUEL Administration Insulin Human Lispro 0 unit 06/08/24 06:00 06/11/24 11:34 Insulin Lispro (Admelog) 1 Unit/0.01 Ml Unit SC 07/08/24 05:59 Not Given Q6HR IMMANUEL Protocol Ondansetron HCl 4 mg 06/07/24 20:01 Ondansetron Inj 2 Mg/Ml Inj 2 Ml IV 07/07/24 20:00 Q6H PRN NAUSEA OR VOMITING Protocol Pantoprazole Sodium 40 mg 06/10/24 09:00 06/11/24 10:43 Pantoprazole Inj 40 Mg Vial IVP 07/10/24 08:59 40 mg QDAY IMMANUEL Administration Plan 83 y/o F with PMHx of Hypertension, paroxysmal atrial fibrillation, Asthma/COPD on 2 L nasal cannula oxygenation, insulin-dependent type 2 diabetes, MDD presenting to the ED on 06/07 after lab work from [facility] showed a hemoglobin 5.2 was transfused 2pRBCs. Admitted for GI bleed. GI specialist, Dr. Kraft consulted. #? Upper vs. Lower GI Bleed #Iron Deficiency Anemia Patient lives on SNF had labs drawn showing low Hg, on admission in the ED Hg 5.2 MCV of 62, Iron studies show iron deficiency anemia FOBT was positive, GI Dr. Kraft was consulted in the ED Was transfused 2 units of pRBCs, current Hg 7.7 EGD showed some gastritis, GI plans to do colonoscopy today however patient was not clear and will reschedule for tomorrow - Protonix drip - golytely prep - pending colonoscopy - GI on case, appreciate recommendations #UTI patients mental status AAOx1-2 UA was done and showed signs of UTI urine cultures grew GNR - on Ceftriaxone 1g qday #Paroxysmal Atrial Fibrillation Patient has documented history of paroxysmal atrial fibrillation On Eliquis 5 mg p.o. twice daily sinus rhythm rate controlled - Eliquis on hold due to suspected GI bleed #Hypertension - Restarted home medication amlodipine 5mg #Insulin-dependent Type 2 Diabetes Last A1c from shows 6.1 back in 2021 Patient possibly on insulin, is not sure of her medications as they are given to her at [facility] - Follow-up on A1c, was sent out - Sliding scale insulin - hypoglycemia protocol in place #Major Depression Disorder Patient has extensive history, as noted from past chart history - On duloxetine 30 mg p.o. daily Case discussed with my senior Dr. Chirinos PGY-[address] Candis Begum MD PGY-1 Disposition: MedTele Fluids: None Feeding: golytely Thrombo prophylaxis: SCDs Gastric Ulcer prophylaxis: Pantoprazole CODE STATUS: DNR Attending Provider Attestation/Addendum I have examined the patient, reviewed labs and imaging findings, discussed the case with the resident(s), and reviewed entered orders. I agree with the plan of care as outlined in this note, with these additional summaries/recommendations: Patient seen at bedside. No acute overnight events. Patient admitted for symptomatic anemia secondary to GI bleed. Hemoglobin on admission 5.2 and patient received 2 units PRBCs with improvement of hemoglobin to 7.7. Today hemoglobin is 8.1. Iron panel obtained indicating severe iron deficiency anemia with ferritin 4 and iron 15 concerning for colon cancer. FOBT positive. We will start oral ferrous sulfate after colonoscopy. GI was consulted and patient underwent EGD which revealed esophagitis, gastritis and normal duodenum. Source of bleeding not identified on EGD. Patient started on clear liquid diet, GoLytely, and will go for colonoscopy. Continue to monitor closely for further bleeding. Patient has history of paroxysmal atrial fibrillation and continue to hold Eliquis in setting of GI bleed. Continue insulin sliding scale for diabetes mellitus type 2. Repeat hematology and chemistry panel in AM. Dr. Chirinos
--- NOTE | 2024-06-11 18:21 | PD.IMPROG ---
Documentation for date of: 06/11/24 Subjective Subjective Interval history: Patient evaluated She was on the schedule for colonoscopy today but she is not clear Additional GoLytely Colonoscopy rescheduled for tomorrow Exam Vital Signs Temp Pulse Resp BP Pulse Ox O2 Del Method O2 Flow Rate 97.8 F 70 18 142/57 H 94 L Room Air 1 06/11/24 16:00 06/11/24 16:00 06/11/24 16:00 06/11/24 16:00 06/11/24 16:00 06/11/24 16:00 06/11/24 10:08 Routine Respiratory Exam Comments: Normal to auscultation Routine Abdominal Exam Comments: Soft nontender Objective Labs 06/11/24 08:15 06/11/24 08:15 Labs: Laboratory Results - last 24 hr 06/11/24 08:15 WBC 6.3 RBC 3.99 L Hgb 8.1 L Hct 28.3 L MCV 71 L MCH 20.3 L MCHC 28.6 L RDW Std Deviation 66.8 H Plt Count 220 Neut % (Auto) 56 Lymph % (Auto) 25 [place] % (Auto) 13 H Eos % (Auto) 5 Baso % (Auto) 1 Neut # (Auto) 3.5 Lymph # (Auto) 1.6 [place] # (Auto) 0.8 Eos # (Auto) 0.3 Baso # (Auto) 0.1 Immature Gran # (Auto) 0.01 H Absolute Nucleated RBC 0.00 Immature Gran % 0 Nucleated RBC % 0 Sodium 139 Potassium 4.3 Chloride 102 Carbon Dioxide 33.4 H Anion Gap 4 L BUN 11 Creatinine 0.5 L Estim Creat Clear Calc 85.1 eGFR > 60 BUN/Creatinine Ratio 22 H Glucose 80 Calculated Osmolality 275 Calcium 8.6 Corrected Calcium 8.8 Phosphorus 2.5 Magnesium 2.1 Total Bilirubin 0.4 AST < 10 ALT < 7 L Alkaline Phosphatase 89 Total Protein 6.2 Albumin 3.8 Globulin 2.4 Albumin/Globulin Ratio 1.6 Impressions Impression: # Posthemorrhagic anemia Continue GoLytely prep Colonoscopy rescheduled for tomorrow Assessment & Plan A&P Narrative # Posthemorrhagic anemia with a significant drop in hemoglobin hematocrit from 07/31/2022 whether this is acute or chronic is unknown at the present She definitely is Hemoccult positive At the skilled nursing patient Suggestions Agree with the blood transfusion Clear liquid diet N.p.o. midnight tonight except p.o. meds Consent obtained for fiberoptic esophagogastroduodenoscopy with possible therapeutic intervention possible biopsy under intravenous moderate sedation scheduled for tomorrow morning In case the upper endoscopy is negative we will consider doing a fibrotic colonoscopy before then the patient back to skilled nursing Other medical problems include # IDDM # Essential hypertension # Bronchial asthma Thank you once again for the opportunity to participate in the care of this patient Time Spent With Patient Time: Total time spent is greater than 50% in coordination of care (as documented) at patient's floor/unit and/or counseling patient:
[2024-06-11] MEDS: DULoxetine HCL 30 MG CAPSULE PO (21:21)
[2024-06-12] VITALS (12 sets, daily range): BP systolic 134–163; BP diastolic 54–73; PULSE 69–95; RESP 16–96; TEMP 36.2–36.6; O2SAT 91–95
[2024-06-12 05:48] LABS: Basophils % (Auto) 1 % (0-2.5); Eosinophils # (Auto) 0.2 Thou/mm3 (0.0-0.5); Eosinophils % (Auto) 4 % (0-10); Hematocrit 26.2 % (36.0-46.0); Immature Granulocytes % (Auto) 1 % (0-0); Immature Granulocytes Auto 0.03 Thou/mm3 (0.00-0.00); Lymphocytes # (Auto) 1.5 Thou/mm3 (1.0-4.8); Lymphocytes % (Auto) 26 % (10-50); Mean Corpuscular Hemoglobin 20.3 pg (25.0-35.0); Mean Corpuscular Volume 70 fL (80-100); Monocytes # (Auto) 0.8 Thou/mm3 (0.0-0.8); Monocytes % (Auto) 13 % (0-12); Neutrophils # (Auto) 3.1 Thou/mm3 (1.8-7.7); Neutrophils % (Auto) 56 % (37-80); Nucleated Red Blood Cell % 0 /100 WBC (0); Platelet Count 248 Thou/mm3 (140-440); RDW Standard Deviation 67.6 fL (36.4-46.3); Red Blood Count 3.74 Miln/mm3 (4.00-5.20); White Blood Count 5.7 Thou/mm3 (3.6-11.0)
[2024-06-12 05:55] LABS: Hemoglobin 7.6 g/dL (12.0-16.0)
[2024-06-12 06:21] LABS: Alanine Aminotransferase < 7 U/L (10-49); Albumin, Serum 3.5 gm/dL (3.4-4.8); Albumin/Globulin Ratio 1.5 (1.2-2.2); Alkaline Phosphatase 87 U/L (46-116); Anion Gap 5 (7-16); Aspartate Amino Transferase 13 U/L (0-34); BUN/Creatinine Ratio 16 Ratio (12-20); Bilirubin,Total 0.4 mg/dL (0.3-1.2); Blood Urea Nitrogen 8 mg/dL (9-23); Calcium 8.6 mg/dL (8.3-10.6); Carbon Dioxide 32.9 mMol/L (20.0-31.0); Chloride 102 mMol/L (98-107); Creatinine (Component) 0.5 mg/dL (0.6-1.3); Estimated Creatinine Clearance 85.2 mL/min (>60); Globulin 2.4 gm/dL (2.3-3.5); Glucose 78 mg/dL (74-106); Osmolality,Calculated 276 (275-295); Phosphorous 2.3 mg/dL (2.4-5.1); Potassium 3.9 mMol/L (3.4-5.1); Sodium 140 mMol/L (136-145); Total Protein 5.9 gm/dL (5.7-8.2); eGFR > 60 See Note
[2024-06-12] MEDS: amLODIPine BESYLATE 5 MG TABLET PO (08:13)
[2024-06-12] MEDS: PANTOPRAZOLE INJ 40 MG VIAL IVP (08:14)
[2024-06-12] MEDS: cefTRIAXone/D5w 1gm IV premix 50 ML IV (08:22)
--- NOTE | 2024-06-12 10:53 | ESPR_ITS ---
<Statement entered by Roxy Worley MD - 06/12/24 16:56> Patient was seen and examined at bedside. Patient was supposed to have colonoscopy yesterday however patient did not clear today for that reason Dr. Kraft recommended to do colonoscopy tomorrow. Hemoglobin stable. - Patient's plan and care discussed with my attending, Dr. Candis Worley MD Internal Medicine PGY-2 Documentation for date of: 06/12/24 Subjective Subjective Interval history: Patient seen today at the bedside fine awake, alert, oriented x 3. No overnight events reported. Vital signs stable at this time. Labs unremarkable. Patient's orientation waxes and wanes likely due to old age however reorients easily. Patient currently pending colonoscopy, has not been able to have procedure due to not being clear. Patient has history of atrial fibrillation however Eliquis has not been started due to suspected GI bleed, will resume once GI workup is finished. Patient's urine culture grew E.coli sensitive to ceftriaxone will continue ceftriaxone at this time. Exam Vital Signs Temp Pulse Resp BP Pulse Ox O2 Del Method O2 Flow Rate 97.1 F 69 18 154/68 H 91 L Room Air 1 06/12/24 07:55 06/12/24 08:13 06/12/24 07:55 06/12/24 08:13 06/12/24 07:55 06/12/24 07:55 06/11/24 10:08 Narrative Exam Physical Exam GENERAL: NAD, AAOx2-3, pale HEENT: Moist mucosa. Eyes open, symmetrical, & clear CARDIO: Heart RRR, no obvious murmurs PULM: No noted coughing/dyspnea CTA B/L, no R/W/R GI: Abdomen soft, nondistended, no pain on palpation. BSx4 SKIN/MSK/EXT: No wounds/rashes/edema/amputations, no pain on palpation. Pedal pulses present B/L NEURO: AAOx2-3, no focal neuro deficits, able to move all 4 extremities Objective Labs 06/13/24 04:56 06/13/24 04:56 Labs: Laboratory Results - last 24 hr 06/12/24 05:12 WBC 5.7 RBC 3.74 L Hgb 7.6 L Hct 26.2 L MCV 70 L MCH 20.3 L MCHC 29.0 L RDW Std Deviation 67.6 H Plt Count 248 Neut % (Auto) 56 Lymph % (Auto) 26 [place] % (Auto) 13 H Eos % (Auto) 4 Baso % (Auto) 1 Neut # (Auto) 3.1 Lymph # (Auto) 1.5 [place] # (Auto) 0.8 Eos # (Auto) 0.2 Baso # (Auto) 0.0 Immature Gran # (Auto) 0.03 H Absolute Nucleated RBC 0.00 Immature Gran % 1 H Nucleated RBC % 0 Sodium 140 Potassium 3.9 Chloride 102 Carbon Dioxide 32.9 H Anion Gap 5 L BUN 8 L Creatinine 0.5 L Estim Creat Clear Calc 85.2 eGFR > 60 BUN/Creatinine Ratio 16 Glucose 78 Calculated Osmolality 276 Calcium 8.6 Corrected Calcium 9.0 Phosphorus 2.3 L Magnesium 2.0 Total Bilirubin 0.4 AST 13 ALT < 7 L Alkaline Phosphatase 87 Total Protein 5.9 Albumin 3.5 Globulin 2.4 Albumin/Globulin Ratio 1.5 Quality Measures Quality Measures none Advance care planning discussed with:: patient Assessment & Plan Assessment Current Active Medications: Generic Name Dose Route Start Last Admin Trade Name Freq PRN Reason Stop Dose Admin Acetaminophen 650 mg 06/07/24 20:01 Acetaminophen 325 Mg Tablet PO 07/07/24 20:00 Q6H PRN Pain 1-3 and/or Fever >100.1 Amlodipine Besylate 5 mg 06/08/24 09:00 06/12/24 08:13 Amlodipine Besylate 5 Mg Tablet PO 07/08/24 08:59 5 mg QDAY IMMANUEL Administration Artificial Tears 1 drop 06/10/24 20:12 06/10/24 20:52 Artificial Tears 225 Drop/15 Ml Btl BOTH EYES 07/10/24 20:11 1 drop PRN PRN Administration TO KEEP EYES MOIST Calamine 0 ml 06/09/24 11:11 Calamine Lotion 120 Ml Btl TOP 07/09/24 11:10 UD PRN ITCHING Dextrose 25 ml 06/07/24 20:04 Dextrose 50%-Water Inj 50 Ml Syringe IV 07/07/24 20:03 Q15MIN PRN BG 50-70 responsive npo pt Dextrose 50 ml 06/07/24 20:04 Dextrose 50%-Water Inj 50 Ml Syringe IV 07/07/24 20:03 Q15MIN PRN BG <50 OR BG <70 & pt unresponsive Duloxetine HCl 30 mg 06/07/24 21:00 06/11/24 21:21 Duloxetine Hcl 30 Mg Capsule PO 07/07/24 20:59 30 mg HS IMMANUEL Administration Glucagon 1 mg 06/07/24 20:04 Glucagon Inj 1 Mg Vial IM Q15MIN PRN BG <70, and no IV access Ceftriaxone Sodium/Dextrose 50 mls @ 100 mls/hr 06/09/24 14:09 06/12/24 08:22 Rocephin/D5w 1gm Iv Premix IV 06/16/24 14:08 100 mls/hr QDAY IMMANUEL Administration Insulin Human Lispro 0 unit 06/08/24 06:00 06/12/24 05:41 Insulin Lispro (Admelog) 1 Unit/0.01 Ml Unit SC 07/08/24 05:59 Not Given Q6HR IMMANUEL Protocol Ondansetron HCl 4 mg 06/07/24 20:01 Ondansetron Inj 2 Mg/Ml Inj 2 Ml IV 07/07/24 20:00 Q6H PRN NAUSEA OR VOMITING Protocol Pantoprazole Sodium 40 mg 06/10/24 09:00 06/12/24 08:14 Pantoprazole Inj 40 Mg Vial IVP 07/10/24 08:59 40 mg QDAY IMMANUEL Administration Plan 83 y/o F with PMHx of Hypertension, paroxysmal atrial fibrillation, Asthma/COPD on 2 L nasal cannula oxygenation, insulin-dependent type 2 diabetes, MDD presenting to the ED on 06/07 after lab work from [facility] showed a hemoglobin 5.2 was transfused 2pRBCs. Admitted for GI bleed. GI specialist, Dr. Kraft consulted. #? Upper vs. Lower GI Bleed #Iron Deficiency Anemia Patient lives on SNF had labs drawn showing low Hg, on admission in the ED Hg 5.2 MCV of 62, Iron studies show iron deficiency anemia FOBT was positive, GI Dr. Kraft was consulted in the ED Was transfused 2 units of pRBCs, current Hg 7.7 EGD showed some gastritis, GI plans to do colonoscopy today however patient was not clear and will reschedule for tomorrow - Protonix 40 mg daily - golytely prep - pending colonoscopy - GI on case, appreciate recommendations #UTI patients mental status AAOx1-2 UA was done and showed signs of UTI urine cultures grew E.coli, sensitive to ceftriaxone - on Ceftriaxone 1g qday #Paroxysmal Atrial Fibrillation Patient has documented history of paroxysmal atrial fibrillation On Eliquis 5 mg p.o. twice daily sinus rhythm rate controlled - Eliquis on hold due to suspected GI bleed #Hypertension - Restarted home medication amlodipine 5mg #Insulin-dependent Type 2 Diabetes Last A1c from shows 6.1 back in 2021 Patient possibly on insulin, is not sure of her medications as they are given to her at [facility] - Follow-up on A1c, was sent out - Sliding scale insulin - hypoglycemia protocol in place #Major Depression Disorder Patient has extensive history, as noted from past chart history - On duloxetine 30 mg p.o. daily Case discussed with my senior Dr. Ramsey PGY-[address] Candis Begum MD PGY-1 Disposition: MedTele Fluids: None Feeding: golytely Thrombo prophylaxis: SCDs Gastric Ulcer prophylaxis: Pantoprazole CODE STATUS: DNR Attending Provider Attestation/Addendum I have examined the patient, reviewed labs and imaging findings, discussed the case with the resident(s), and reviewed entered orders. I agree with the plan of care as outlined in this note, with these additional summaries/recommendations: Patient seen at bedside. No acute overnight events. Today patient reports she is hungry as she continues to prep for colonoscopy. Discussed with patient that she is already started the prep for colonoscopy and should continue although it is ultimately her decision and we will respect what she decides. At this time she is agreeable to continue GoLytely. Patient admitted for symptomatic anemia secondary to GI bleed. Hemoglobin on admission 5.2 and patient received 2 units PRBCs with improvement of hemoglobin to 7.7. Today hemoglobin is 7.6. Iron panel obtained indicating severe iron deficiency anemia with ferritin 4 and iron 15 concerning for colon cancer. FOBT positive. We will start oral ferrous sulfate after colonoscopy. GI was consulted and patient underwent EGD which revealed esophagitis, gastritis and normal duodenum. Source of bleeding not identified on EGD. Patient started on clear liquid diet, GoLytely, and will go for colonoscopy. Continue to monitor closely for further bleeding. Patient has history of paroxysmal atrial fibrillation and continue to hold Eliquis in setting of GI bleed. Continue insulin sliding scale for diabetes mellitus type 2. Repeat hematology and chemistry panel in AM. Dr. Chirinos
--- NOTE | 2024-06-12 10:58 | ESPR_ITS ---
Documentation for date of: 06/12/24 Subjective Subjective Interval history: Patient was scheduled for a colonoscopy today but she is having brown stool She will need additional GoLytely Colonoscopy canceled for today rescheduled for tomorrow Exam Vital Signs Temp Pulse Resp BP Pulse Ox O2 Del Method O2 Flow Rate 97.1 F 69 18 154/68 H 91 L Room Air 1 06/12/24 07:55 06/12/24 08:13 06/12/24 07:55 06/12/24 08:13 06/12/24 07:55 06/12/24 07:55 06/11/24 10:08 Objective Labs 06/13/24 04:56 06/13/24 04:56 Labs: Laboratory Results - last 24 hr 06/12/24 05:12 WBC 5.7 RBC 3.74 L Hgb 7.6 L Hct 26.2 L MCV 70 L MCH 20.3 L MCHC 29.0 L RDW Std Deviation 67.6 H Plt Count 248 Neut % (Auto) 56 Lymph % (Auto) 26 [place] % (Auto) 13 H Eos % (Auto) 4 Baso % (Auto) 1 Neut # (Auto) 3.1 Lymph # (Auto) 1.5 [place] # (Auto) 0.8 Eos # (Auto) 0.2 Baso # (Auto) 0.0 Immature Gran # (Auto) 0.03 H Absolute Nucleated RBC 0.00 Immature Gran % 1 H Nucleated RBC % 0 Sodium 140 Potassium 3.9 Chloride 102 Carbon Dioxide 32.9 H Anion Gap 5 L BUN 8 L Creatinine 0.5 L Estim Creat Clear Calc 85.2 eGFR > 60 BUN/Creatinine Ratio 16 Glucose 78 Calculated Osmolality 276 Calcium 8.6 Corrected Calcium 9.0 Phosphorus 2.3 L Magnesium 2.0 Total Bilirubin 0.4 AST 13 ALT < 7 L Alkaline Phosphatase 87 Total Protein 5.9 Albumin 3.5 Globulin 2.4 Albumin/Globulin Ratio 1.5 Impressions Impression: # Posthemorrhagic anemia More GoLytely Clear liquid diet Colonoscopy rescheduled Assessment & Plan A&P Narrative # Posthemorrhagic anemia with a significant drop in hemoglobin hematocrit from 07/31/2022 whether this is acute or chronic is unknown at the present She definitely is Hemoccult positive At the [place] patient Suggestions Agree with the blood transfusion Clear liquid diet N.p.o. midnight tonight except p.o. meds Consent obtained for fiberoptic esophagogastroduodenoscopy with possible therapeutic intervention possible biopsy under intravenous moderate sedation scheduled for tomorrow morning In case the upper endoscopy is negative we will consider doing a fibrotic colonoscopy before then the patient back to [facility] Other medical problems include # IDDM # Essential hypertension # Bronchial asthma Thank you once again for the opportunity to participate in the care of this patient Time Spent With Patient Time: Total time spent is greater than 50% in coordination of care (as documented) at patient's floor/unit and/or counseling patient:
--- NOTE | 2024-06-12 18:05 | PC.NURSE ---
spoke with dr. sy for the update that pt. still not clear on golytely have quater of her second bottle left , per MD give tap enema and start the 3rd golytely after the completion of second.
[2024-06-12] MEDS: DULoxetine HCL 30 MG CAPSULE PO (20:52)
[2024-06-13] VITALS (15 sets, daily range): BP systolic 113–160; BP diastolic 61–81; PULSE 65–85; RESP 13–100; TEMP 36.1–36.6; O2SAT 92–98
[2024-06-13 05:14] LABS: Basophils # (Auto) 0.1 Thou/mm3 (0.0-0.2); Basophils % (Auto) 1 % (0-2.5); Eosinophils # (Auto) 0.3 Thou/mm3 (0.0-0.5); Eosinophils % (Auto) 5 % (0-10); Hematocrit 26.6 % (36.0-46.0); Immature Granulocytes % (Auto) 0 % (0-0); Immature Granulocytes Auto 0.02 Thou/mm3 (0.00-0.00); Lymphocytes # (Auto) 1.7 Thou/mm3 (1.0-4.8); Lymphocytes % (Auto) 29 % (10-50); Mean Corpuscular HGB Conc 29.3 g/dl (31.0-37.0); Mean Corpuscular Hemoglobin 20.4 pg (25.0-35.0); Mean Corpuscular Volume 70 fL (80-100); Monocytes # (Auto) 0.7 Thou/mm3 (0.0-0.8); Monocytes % (Auto) 12 % (0-12); Neutrophils # (Auto) 3.1 Thou/mm3 (1.8-7.7); Neutrophils % (Auto) 53 % (37-80); Nucleated Red Blood Cell % 0 /100 WBC (0); Platelet Count 203 Thou/mm3 (140-440); RDW Standard Deviation 66.8 fL (36.4-46.3); Red Blood Count 3.83 Miln/mm3 (4.00-5.20); White Blood Count 5.9 Thou/mm3 (3.6-11.0)
[2024-06-13 05:16] LABS: Hemoglobin 7.8 g/dL (12.0-16.0)
[2024-06-13 05:45] LABS: Alanine Aminotransferase < 7 U/L (10-49); Albumin, Serum 3.5 gm/dL (3.4-4.8); Albumin/Globulin Ratio 1.5 (1.2-2.2); Alkaline Phosphatase 88 U/L (46-116); Anion Gap 5 (7-16); Aspartate Amino Transferase 12 U/L (0-34); BUN/Creatinine Ratio 14 Ratio (12-20); Bilirubin,Total 0.4 mg/dL (0.3-1.2); Blood Urea Nitrogen 7 mg/dL (9-23); Calcium 8.6 mg/dL (8.3-10.6); Chloride 100 mMol/L (98-107); Creatinine (Component) 0.5 mg/dL (0.6-1.3); Estimated Creatinine Clearance 85.2 mL/min (>60); Globulin 2.3 gm/dL (2.3-3.5); Glucose 81 mg/dL (74-106); Magnesium 2.1 mg/dL (1.6-2.6); Osmolality,Calculated 276 (275-295); Phosphorous 2.8 mg/dL (2.4-5.1); Potassium 4.1 mMol/L (3.4-5.1); Sodium 140 mMol/L (136-145); Total Protein 5.8 gm/dL (5.7-8.2); eGFR > 60 See Note
[2024-06-13] MEDS: amLODIPine BESYLATE 5 MG TABLET PO (08:26)
[2024-06-13] MEDS: PANTOPRAZOLE INJ 40 MG VIAL IVP (08:26)
[2024-06-13] MEDS: cefTRIAXone/D5w 1gm IV premix 50 ML IV (08:26)
--- NOTE | 2024-06-13 17:02 | PD.RESPRO ---
Documentation for date of: 06/13/24 Subjective Subjective Interval history: Patient was seen and examined at bedside. No overnight incidents. She was sleeping comfortably in bed today . Vital stable. Hemoglobin stable at 7.8, still on GoLytely preparation for the colonoscopy today. Denied any lower GI bleed. Exam Vital Signs Temp Pulse Resp BP Pulse Ox O2 Del Method O2 Flow Rate 97.1 F 70 14 113/68 94 L Nasal Cannula 3 06/13/24 12:00 06/13/24 16:05 06/13/24 16:05 06/13/24 16:05 06/13/24 16:05 06/13/24 12:00 06/13/24 16:05 Narrative Exam GEN: Fluctuation of orientation, able to speak full sentences HEENT: NC/AC, oral mucosa moist, neck supple CVS: RRR, S1-S2 present, no murmurs appreciated RESP: CTAB GI: soft,non distended, non tender, NBS MSK: able to move all 4 limbs, no lower extremity edema SKIN: warm and dry [employer]PER[employer]OR: CN II-XII and Sensation grossly intact. Objective Labs 06/14/24 05:35 06/14/24 05:35 Labs: Laboratory Results - last 24 hr 06/13/24 04:56 WBC 5.9 RBC 3.83 L Hgb 7.8 L Hct 26.6 L MCV 70 L MCH 20.4 L MCHC 29.3 L RDW Std Deviation 66.8 H Plt Count 203 D Neut % (Auto) 53 Lymph % (Auto) 29 [place] % (Auto) 12 Eos % (Auto) 5 Baso % (Auto) 1 Neut # (Auto) 3.1 Lymph # (Auto) 1.7 [place] # (Auto) 0.7 Eos # (Auto) 0.3 Baso # (Auto) 0.1 Immature Gran # (Auto) 0.02 H Absolute Nucleated RBC 0.00 Immature Gran % 0 Nucleated RBC % 0 Sodium 140 Potassium 4.1 Chloride 100 Carbon Dioxide 35.0 H Anion Gap 5 L BUN 7 L Creatinine 0.5 L Estim Creat Clear Calc 85.2 eGFR > 60 BUN/Creatinine Ratio 14 Glucose 81 Calculated Osmolality 276 Calcium 8.6 Corrected Calcium 9.0 Phosphorus 2.8 Magnesium 2.1 Total Bilirubin 0.4 AST 12 ALT < 7 L Alkaline Phosphatase 88 Total Protein 5.8 Albumin 3.5 Globulin 2.3 Albumin/Globulin Ratio 1.5 Quality Measures Quality Measures none Advance care planning discussed with:: patient Assessment & Plan Assessment Current Active Medications: Generic Name Dose Route Start Last Admin Trade Name Freq PRN Reason Stop Dose Admin Acetaminophen 650 mg 06/07/24 20:01 Acetaminophen 325 Mg Tablet PO 07/07/24 20:00 Q6H PRN Pain 1-3 and/or Fever >100.1 Amlodipine Besylate 5 mg 06/08/24 09:00 06/13/24 08:26 Amlodipine Besylate 5 Mg Tablet PO 07/08/24 08:59 5 mg QDAY IMMANUEL Administration Artificial Tears 1 drop 06/10/24 20:12 06/10/24 20:52 Artificial Tears 225 Drop/15 Ml Btl BOTH EYES 07/10/24 20:11 1 drop PRN PRN Administration TO KEEP EYES MOIST Calamine 0 ml 06/09/24 11:11 Calamine Lotion 120 Ml Btl TOP 07/09/24 11:10 UD PRN ITCHING Dextrose 25 ml 06/07/24 20:04 Dextrose 50%-Water Inj 50 Ml Syringe IV 07/07/24 20:03 Q15MIN PRN BG 50-70 responsive npo pt Dextrose 50 ml 06/07/24 20:04 Dextrose 50%-Water Inj 50 Ml Syringe IV 07/07/24 20:03 Q15MIN PRN BG <50 OR BG <70 & pt unresponsive Duloxetine HCl 30 mg 06/07/24 21:00 06/12/24 20:52 Duloxetine Hcl 30 Mg Capsule PO 07/07/24 20:59 30 mg HS IMMANUEL Administration Glucagon 1 mg 06/07/24 20:04 Glucagon Inj 1 Mg Vial IM Q15MIN PRN BG <70, and no IV access Ceftriaxone Sodium/Dextrose 50 mls @ 100 mls/hr 06/09/24 14:09 06/13/24 08:26 Rocephin/D5w 1gm Iv Premix IV 06/16/24 14:08 100 mls/hr QDAY IMMANUEL Administration Insulin Human Lispro 0 unit 06/08/24 06:00 06/13/24 11:46 Insulin Lispro (Admelog) 1 Unit/0.01 Ml Unit SC 07/08/24 05:59 Not Given Q6HR IMMANUEL Protocol Ondansetron HCl 4 mg 12/23/24 20:01 Ondansetron Inj 2 Mg/Ml Inj 2 Ml IV 07/07/24 20:00 Q6H PRN NAUSEA OR VOMITING Protocol Pantoprazole Sodium 40 mg 06/10/24 09:00 06/13/24 08:26 Pantoprazole Inj 40 Mg Vial IVP 07/10/24 08:59 40 mg QDAY IMMANUEL Administration Polyethylene Glycol 17 gm 06/13/24 16:15 Polyethylene Glycol 17 Gm Packet PO 07/13/24 16:14 QDAY REPLACED BY [facility] Sennosides 1 tab 06/14/24 09:00 Senna Tablet PO 07/14/24 08:59 QDAY REPLACED BY [facility] Protocol Plan 83 y/o F with PMHx of Hypertension, paroxysmal atrial fibrillation, Asthma/COPD on 2 L nasal cannula oxygenation, insulin-dependent type 2 diabetes, MDD presenting to the ED on 06/07 after lab work from [facility] showed a hemoglobin 5.2 was transfused 2pRBCs. Admitted for GI bleed. GI specialist, Dr. Kraft consulted. #? Upper vs. Lower GI Bleed #Iron Deficiency Anemia Patient lives on SNF had labs drawn showing low Hg, on admission in the ED Hg 5.2 MCV of 62, Iron studies show iron deficiency anemia FOBT was positive, GI Dr. Kraft was consulted in the ED Was transfused 2 units of pRBCs, current Hg 7.7 EGD showed some gastritis, GI plans to do colonoscopy today however patient was not clear and will reschedule for tomorrow - Protonix 40 mg daily - golytely prep - pending colonoscopy - GI on case, appreciate recommendations #UTI patients mental status AAOx1-2 UA was done and showed signs of UTI urine cultures grew E.coli, sensitive to ceftriaxone - on Ceftriaxone 1g qday ? #Paroxysmal Atrial Fibrillation Patient has documented history of paroxysmal atrial fibrillation On Eliquis 5 mg p.o. twice daily sinus rhythm rate controlled - Eliquis on hold due to suspected GI bleed, pending colonoscopy and GI recs for resuming blood thinners. #Hypertension - Restarted home medication amlodipine 5mg #Insulin-dependent Type 2 Diabetes Last A1c from shows 6.1 back in 2021 Patient possibly on insulin, is not sure of her medications as they are given to her at [facility] - Follow-up on A1c, was sent out - Sliding scale insulin - hypoglycemia protocol in place #Major Depression Disorder Patient has extensive history, as noted from past chart history - On duloxetine 30 mg p.o. daily Disposition: MedTele Fluids: None Feeding: golytely Thrombo prophylaxis: SCDs Gastric Ulcer prophylaxis: Pantoprazole CODE STATUS: DNR - Patient's plan and care discussed with my attending, Dr. Candis Worley MD Internal Medicine PGY-2 Attending Provider Attestation/Addendum I have examined the patient, reviewed labs and imaging findings, discussed the case with the resident(s), and reviewed entered orders. I agree with the plan of care as outlined in this note, with these additional summaries/recommendations: Patient seen at bedside. No acute overnight events. Today patient reports she is hungry as she continues to prep for colonoscopy. Discussed with patient that she will go for colonoscopy today and then we will resume diet afterwards. Patient admitted for symptomatic anemia secondary to GI bleed. Hemoglobin on admission 5.2 and patient received 2 units PRBCs with improvement of hemoglobin to 7.7. Today hemoglobin is 7.8. Iron panel obtained indicating severe iron deficiency anemia with ferritin 4 and iron 15 concerning for colon cancer. FOBT positive. We will start oral ferrous sulfate after colonoscopy. GI was consulted and patient underwent EGD which revealed esophagitis, gastritis and normal duodenum. Source of bleeding not identified on EGD. Patient started on clear liquid diet, GoLytely, and will go for colonoscopy. Continue to monitor closely for further bleeding. Patient has history of paroxysmal atrial fibrillation and continue to hold Eliquis in setting of GI bleed. Continue insulin sliding scale for diabetes mellitus type 2. Repeat hematology and chemistry panel in AM. Dr. Chirinos
[2024-06-13] MEDS: DULoxetine HCL 30 MG CAPSULE PO (20:23)
[2024-06-14] VITALS (8 sets, daily range): BP systolic 118–155; BP diastolic 51–81; PULSE 64–91; RESP 12–98; TEMP 36.2–36.7; O2SAT 93–98
[2024-06-14 06:08] LABS: Basophils % (Auto) 1 % (0-2.5); Eosinophils # (Auto) 0.3 Thou/mm3 (0.0-0.5); Eosinophils % (Auto) 5 % (0-10); Hematocrit 26.5 % (36.0-46.0); Immature Granulocytes % (Auto) 0 % (0-0); Immature Granulocytes Auto 0.01 Thou/mm3 (0.00-0.00); Lymphocytes # (Auto) 1.3 Thou/mm3 (1.0-4.8); Lymphocytes % (Auto) 20 % (10-50); Mean Corpuscular HGB Conc 29.1 g/dl (31.0-37.0); Mean Corpuscular Hemoglobin 20.5 pg (25.0-35.0); Mean Corpuscular Volume 71 fL (80-100); Monocytes # (Auto) 0.7 Thou/mm3 (0.0-0.8); Monocytes % (Auto) 11 % (0-12); Neutrophils # (Auto) 3.9 Thou/mm3 (1.8-7.7); Neutrophils % (Auto) 63 % (37-80); Nucleated Red Blood Cell % 0 /100 WBC (0); Platelet Count 192 Thou/mm3 (140-440); RDW Standard Deviation 67.7 fL (36.4-46.3); Red Blood Count 3.76 Miln/mm3 (4.00-5.20); White Blood Count 6.2 Thou/mm3 (3.6-11.0)
[2024-06-14 06:10] LABS: Hemoglobin 7.7 g/dL (12.0-16.0)
[2024-06-14 06:27] LABS: Alanine Aminotransferase < 7 U/L (10-49); Albumin, Serum 3.1 gm/dL (3.4-4.8); Albumin/Globulin Ratio 1.3 (1.2-2.2); Alkaline Phosphatase 86 U/L (46-116); Anion Gap 4 (7-16); Aspartate Amino Transferase 14 U/L (0-34); BUN/Creatinine Ratio 15 Ratio (12-20); Bilirubin,Total 0.3 mg/dL (0.3-1.2); Blood Urea Nitrogen 6 mg/dL (9-23); Calcium 9.1 mg/dL (8.3-10.6); Calcium (Corrected) 9.8 mg/dL (8.5-10.1); Carbon Dioxide 34.2 mMol/L (20.0-31.0); Chloride 103 mMol/L (98-107); Creatinine (Component) 0.4 mg/dL (0.6-1.3); Estimated Creatinine Clearance 106.5 mL/min (>60); Globulin 2.3 gm/dL (2.3-3.5); Glucose 76 mg/dL (74-106); Magnesium 2.1 mg/dL (1.6-2.6); Osmolality,Calculated 277 (275-295); Phosphorous 3.7 mg/dL (2.4-5.1); Sodium 141 mMol/L (136-145); Total Protein 5.4 gm/dL (5.7-8.2); eGFR > 60 See Note
--- NOTE | 2024-06-14 09:01 | PC.SS ---
SS update: pending Dr. Kraft recommendations. Patient identified as a possible discharge for today.
[2024-06-14] MEDS: SENNA TABLET 1 TAB PO (09:28)
[2024-06-14] MEDS: POLYETHYLENE GLYCOL 17 GM PACKET PO (09:28)
[2024-06-14] MEDS: amLODIPine BESYLATE 5 MG TABLET PO (09:28)
[2024-06-14] MEDS: cefTRIAXone/D5w 1gm IV premix 50 ML IV (09:30)
[2024-06-14] MEDS: PANTOPRAZOLE INJ 40 MG VIAL IVP (09:30)
--- NOTE | 2024-06-14 12:12 | PD.IMPROG ---
Documentation for date of: 06/14/24 Subjective Subjective Interval history: Hemoglobin hematocrit 7.7 and 26.5 Colonoscopy no gross lesion to cecum Moderate diverticulosis involving sigmoid and descending colon Upper endoscopy showed gastritis and esophagitis Case discussed with internal medicine team Patient can be discharged No GI follow-up necessary Exam Vital Signs Temp Pulse Resp BP Pulse Ox O2 Del Method O2 Flow Rate 97.6 F 91 19 146/81 H 93 L Nasal Cannula 1 06/14/24 12:00 06/14/24 12:00 06/14/24 12:00 06/14/24 12:00 06/14/24 12:00 06/14/24 12:00 06/14/24 12:00 Objective Labs 06/14/24 05:35 06/14/24 05:35 Labs: Laboratory Results - last 24 hr 06/08/24 06/14/24 05:35 05:35 WBC 6.2 RBC 3.76 L Hgb 7.7 L Hct 26.5 L MCV 71 L MCH 20.5 L MCHC 29.1 L RDW Std Deviation 67.7 H Plt Count 192 Neut % (Auto) 63 Lymph % (Auto) 20 [place] % (Auto) 11 Eos % (Auto) 5 Baso % (Auto) 1 Neut # (Auto) 3.9 Lymph # (Auto) 1.3 [place] # (Auto) 0.7 Eos # (Auto) 0.3 Baso # (Auto) 0.0 Immature Gran # (Auto) 0.01 H Absolute Nucleated RBC 0.00 Immature Gran % 0 Nucleated RBC % 0 Sodium 141 Potassium 4.0 Chloride 103 Carbon Dioxide 34.2 H Anion Gap 4 L BUN 6 L Creatinine 0.4 L Estim Creat Clear Calc 106.5 eGFR > 60 BUN/Creatinine Ratio 15 Glucose 76 Calculated Osmolality 277 Calcium 9.1 Corrected Calcium 9.8 Phosphorus 3.7 Magnesium 2.1 Total Bilirubin 0.3 AST 14 ALT < 7 L Alkaline Phosphatase 86 Total Protein 5.4 L Albumin 3.1 L Globulin 2.3 Albumin/Globulin Ratio 1.3 Misc Test Result See Sep Rpt Impressions Impression: # Gastritis # Esophagitis # Moderate diverticulosis sigmoid colon and descending colon No further GI workup planned Patient to be followed by the PCP and no GI follow-up necessary Assessment & Plan A&P Narrative # Posthemorrhagic anemia with a significant drop in hemoglobin hematocrit from 07/31/2022 whether this is acute or chronic is unknown at the present She definitely is Hemoccult positive At the half-way patient Suggestions Agree with the blood transfusion Clear liquid diet N.p.o. midnight tonight except p.o. meds Consent obtained for fiberoptic esophagogastroduodenoscopy with possible therapeutic intervention possible biopsy under intravenous moderate sedation scheduled for tomorrow morning In case the upper endoscopy is negative we will consider doing a fibrotic colonoscopy before then the patient back to half-way Other medical problems include # IDDM # Essential hypertension # Bronchial asthma Thank you once again for the opportunity to participate in the care of this patient Time Spent With Patient Time: Total time spent is greater than 50% in coordination of care (as documented) at patient's floor/unit and/or counseling patient:
--- NOTE | 2024-06-14 14:30 | PC.SS ---
Addendum entered by SONIA Corrales 06/14/24 14:56: Transport ETA 4pm with [facility]. Updated ammunition storage superintendent and Rita at [facility]. Addendum entered by SONIA Corrales 06/14/24 14:33: Transportation arranged via [employer]. Reference number is [id number]. Pending ETA. Bed side nurse Octavio is aware. Original Note: Plan is to d/c back to [facility] today. Rita at [facility] confirmed they can accept the patient today. Contacted patient's friend, David and notified her of patient's discharge. David was agreeable and aware of patient's Medicare rights.
--- NOTE | 2024-06-14 15:16 | PD.RESDS ---
Planned Discharge Date 06/14/24 DS: Providers Provider Date of admission: 06/07/24 19:57 Primary care physician: Physician No Primary/Family Admitting Provider: Rolando Melendez MD Attending Provider on Admission: Price Chirinos MD Consults: 06/07/24 19:03 Consult to Gastroenterology Stat Comment: Consulting Provider: Alli Kraft 06/08/24 06:10 Referral Registered Dietitian Routine Comment: Referral Wound Care Routine Comment: Attending Provider on DC: Britney Carrillo MD Discharging Provider: Britney Carrillo MD DS: Diagnosis Problem List Completed Was Problem List Reviewed/Reconciled?: Yes Hospital Course Hospital Course Hospital course: 83-year-old female with past medical history of hypertension, paroxysmal atrial fibrillation, Asthma/COPD on 2 L nasal cannula oxygenation, insulin-dependent type 2 diabetes, MDD presenting to the ED on 06/07 after lab work from [facility] showed low hemoglobin. Patient is a long-term resident at the SNF and states that upon checking her blood the care providers at the facility requested that she be transferred to the ED for transfusion. On arrival to the ED, patient presented hypertensive 142/56, heart rate 72, respiratory rate 16, afebrile satting 90 on 2 L oxygen. Pertinent labs included WBC 9.3, hemoglobin 5.2, hematocrit 19.5%, MCV 62, sodium 141, potassium 5.1, BUN 23, creatinine 0.6, total bilirubin 0.2. FOBT positive. Patient was admitted for GI bleed workup. Gastroenterology was cpnsulted who performed endoscopy which showed esophagitis and gastritis without bleeding; colonoscopy was done whoch showed hemorrhoids and diverticulosis without current active diverticular bleed. Patient safe and stable for DC. Aspirin dose changed to 81. #Acute blood loss anemia #GI bleed Patient's care discussed with attending physician, Dr Candis Carrillo MD PGY3 Time Spent with Patient Time attestation: Total time spent providing and/or coordinating discharge services: Exam Vital Signs Temp Pulse Resp BP Pulse Ox O2 Del Method O2 Flow Rate 97.6 F 91 19 146/81 H 93 L Nasal Cannula 1 06/14/24 12:00 06/14/24 12:00 06/14/24 12:00 06/14/24 12:00 06/14/24 12:00 06/14/24 12:00 06/14/24 12:00 Discharge Plan Plan Patient Disposition: Xfer [facility]illed [facility] Fac (SNF) Patient condition on transfer: Stable Care Plan Goals: -Follow up within 1-2 weeks of discharge with PCP -In case of signs of bleeding immediately return to ED -Aspirin dose reduced to 81 Prescriptions/Referrals Prescriptions/Med Rec: New aspirin 81 mg capsule 81 mg PO QDAY 30 Days Qty: 30 0RF Continued amlodipine 5 mg Tablet 5 mg PO QDAY acetaminophen 500 mg Tablet 500 mg PO QDAY magnesium hydroxide [Milk of Magnesia] 400 mg/5 mL Suspension 30 ml PO Q72H PRN (Reason: Constipation) bisacodyl 10 mg Suppository 10 mg ND PRN PRN (Reason: Constipation) loratadine 10 mg Tablet 10 mg PO QDAY insulin glargine [Lantus Solostar U-100 Insulin] 100 unit/mL (3 mL) Insulin Pen 10 unit SUBCUT HS Rx Instructions: do not give if blood sugar less than 100 metformin 500 mg tablet 500 mg PO BID polyvinyl alcohol [Artificial Tears (polyvin alc)] 1.4 % Drops 2 drp OPHTHALMIC (EYE) Q4H PRN (Reason: irritation) calcium carbonate 600 mg calcium (1,500 mg) Tablet 600 mg PO BID hydroxyzine HCl 25 mg Tablet 50 mg PO BID Rx Instructions: for itching duloxetine [Cymbalta] 30 mg Capsule,Delayed Release(Dr/Ec) 30 mg PO BID diphenhydramine HCl [Benadryl] 25 mg Capsule 25 mg PO BID Rx Instructions: for pruritus Held quetiapine [Seroquel] 25 mg Tablet 25 mg PO QDAY Hold Instructions: Unable to verify, re-evaluae with PCP albuterol sulfate [ProAir HFA] 90 mcg/actuation HFA aerosol inhaler 1 inh inhalation Q6H PRN (Reason: shortness of breath or wheezing) Hold Instructions: Unable to verify, re-evaluate with PCP Discontinued aspirin 325 mg Tablet 325 mg PO MWF ivermectin 3 mg Tablet 18 mg PO QWEEK hydrocortisone 1 % Lotion 1 applic TOPICAL BID guaifenesin [Tussin] 100 mg/5 mL Liquid 400 mg PO Q6H PRN (Reason: Cough) Fleet Enema 19-7 gram/118 mL Enema 118 ml ND Q72H PRN (Reason: Constipation) chlorhexidine gluconate [Hibiclens] 4 % Liquid 1 applic TOPICAL 2 X WEEKLY Rx Instructions: qday on Friday and Fri only. Drizalma Sprinkle 20 mg capsule, delayed rel sprinkle 20 mg PO DAILY clotrimazole 1 % Cream 1 applic DAILY Rx Instructions: each toe nail topically every day shift for Tinea Unguium for 4 months end date 08/20/2024 No Action multivitamin with minerals Capsule 1 cap PO QDAY Referrals: No Primary/Family,Physician [Primary Care Provider] - Patient/Caregiver Discharge Instructions Education Materials: Bleeding Gastrointestinal Print Language: Mohawk Stand Alone Forms: [employer] Award Info., Patient Portal Info Letter Discharge Order Discharge Orders: Discharge (Routine); Ordered 06/14/24 Ordered By: Britney Carrillo Quality Discharge Quality Measures VTE prophylaxis MD Attestestation MD Attestation I have examined the patient, reviewed labs and imaging findings, discussed the case with the resident(s), and reviewed entered orders. I agree with the plan of care as outlined in this note. Dr. Chirinos
--- NOTE | 2024-06-14 16:06 | PC.NURSE ---
sbar report given to keiko at [facility] for pt.
== END 2024-06-14 17:00 | disposition skilled nursing facility (03) | DRG 377 ==
LOC: SERX 19:00 → SERHOLD 20:22 → S3SX 06-08 00:11
PROVIDERS: Registered Nurse General Practice; Specialist; Student in an Organized Health Care Education/Training Program; Admitting Provider Student in an Organized Health Care Education/Training Program; Emergency Provider Emergency Medicine; Visit Provider Student in an Organized Health Care Education/Training Program
PROC: 0DJ08ZZ Inspection of Upper Intestinal Tract, Via Natural or Artificial Opening Endoscopic (ICD-10-PCS; CPT 43239; principal; 2024-06-08 12:30)
PROC: 0DJD8ZZ Inspection of Lower Intestinal Tract, Via Natural or Artificial Opening Endoscopic (ICD-10-PCS; CPT 45378; principal; 2024-06-13 15:00)
DX: K57.31 Diverticulosis of large intestine without perforation or abscess with bleeding (principal); K20.91 Esophagitis, unspecified with bleeding; D62 Acute posthemorrhagic anemia; N39.0 Urinary tract infection, site not specified; K29.71 Gastritis, unspecified, with bleeding; I48.0 Paroxysmal atrial fibrillation; I10 Essential (primary) hypertension; J44.89 Other specified chronic obstructive pulmonary disease; E11.9 Type 2 diabetes mellitus without complications; K59.00 Constipation, unspecified; F32.9 Major depressive disorder, single episode, unspecified; K64.9 Unspecified hemorrhoids; B96.20 Unspecified Escherichia coli [E. coli] as the cause of diseases classified elsewhere; Z66 Do not resuscitate; Z87.891 Personal history of nicotine dependence; Z79.01 Long term (current) use of anticoagulants; Z79.4 Long term (current) use of insulin; Z79.899 Other long term (current) drug therapy; Z79.84 Long term (current) use of oral hypoglycemic drugs
CPT/HCPCS: 36415; 36430; 80053; 80061; 81001; 82270; 82728; 83036; 83540; 83550; 83735; 84100; 84439; 84443; 85014; 85018; 85025; 85610; 85730; 86850; 86900; 86901; 86923; 87077; 87081; 87086; 87186; 93225; 96365; 96366; 96374; 99285; A4217; J0696; J1815; J2250; J2470; J3010; J3490; P9016; A9270

== ENCOUNTER 2024-08-22 00:02 | Inpatient (IN) | payer MEDICARE, MEDICAID, SELFPAY ==
[2024-08-22] VITALS (28 sets, daily range): BP systolic 78–151; BP diastolic 44–88; PULSE 68–97; RESP 12–30; TEMP 35.9–36.8; O2SAT 19–100; BMI 24.5
--- NOTE | 2024-08-22 00:16 | XR_ITS ---
Examination: AP chest single view Technique one AP portable upright chest single view Exam date and time: August 22, 2024 0026 hrs. Comparison May 30, 2023 Indications: Shortness of breath today. Findings: Severe right lung pneumonia Pneumonia left perihilar left basilar region Mild prominence left ventricle Moderate osteopenia Impression: Bilateral pneumonia, extensive right lung
--- NOTE | 2024-08-22 00:23 | PD.EDADULT ---
ED General RME/HPI General Chief complaint: Shortness of Breath/Dyspnea Stated complaint: SOB Time Seen by Provider: 08/22/24 00:23 Arrival date/time: 08/22/24 00:02 RME / HPI RME / HPI narrative: Patient is a 84 years old female with PMH of hypertension, paroxysmal atrial fibrillation, Asthma/COPD on 2 L nasal cannula oxygenation, insulin-dependent type 2 diabetes, depression BIBA from SNF due to low oxygen saturation. Patient is moaning and not communicating. Per EMS patient was found saturating 80% at SNF and EMS was called. Patient has POLST form stating code status is DNR. Related Data Home Medications ?Medication ?Instructions ?Recorded ?Confirmed acetaminophen 500 mg tablet 500 mg PO QDAY 07/26/21 07/31/22 albuterol sulfate 90 mcg/actuation 1 inh inhalation Q6H PRN shortness 07/26/21 07/31/22 aerosol inhaler (ProAir HFA) of breath or wheezing Held on 06/14/24. Instructions: Unable to verify, re-evaluate with PCP amlodipine 5 mg tablet 5 mg PO QDAY 07/26/21 06/08/24 bisacodyl 10 mg rectal suppository 10 mg ID PRN PRN Constipation 07/26/21 07/31/22 insulin glargine 100 unit/mL (3 10 unit subcut HS 07/26/21 06/08/24 mL) subcutaneous pen (Lantus Solostar U-100 Insulin) loratadine 10 mg tablet 10 mg PO QDAY 07/26/21 06/08/24 magnesium hydroxide 400 mg/5 mL 30 ml PO Q72H PRN Constipation 07/26/21 07/31/22 oral suspension (Milk of Magnesia) multivitamin with minerals 1 cap PO QDAY 07/26/21 07/31/22 quetiapine 25 mg tablet (Seroquel) 25 mg PO QDAY 07/26/21 07/31/22 Held on 06/14/24. Instructions: Unable to verify, re-evaluae with PCP metformin 500 mg tablet 500 mg PO BID 05/20/22 06/08/24 calcium carbonate 600 mg PO BID 07/31/22 06/08/24 duloxetine 30 mg capsule,delayed 30 mg PO BID 07/31/22 07/31/22 release (Cymbalta) hydroxyzine HCl 25 mg tablet 50 mg PO BID 07/31/22 06/08/24 polyvinyl alcohol 1.4 % eye drops 2 drp ophthalmic (eye) Q4H PRN 07/31/22 07/31/22 (Artificial Tears (polyvinyl irritation alcohol)) diphenhydramine HCl 25 mg capsule 25 mg PO BID 06/08/24 06/08/24 (Benadryl) Allergies Allergy/AdvReac Type Severity Reaction Status Date / Time valsartan (From Diovan) Allergy Unknown Verified 08/22/24 00:36 Review of Systems Review of Systems Systems Reviewed: All systems reviewed, normal except as documented ED Exam Narrative Physical exam: Gen: Well-developed and well-nourished elderly female in distress. HEENT: NCAT, PERRLA, EOMI, MMM, anicteric conjunctivae. CVS: normal S1 and S2. RRR. No M/R/G. Resp: no BS over right lung. No rhonchi, rales, crackles or wheezing. Abd: soft, non-tender, non-distended. BS+ in all 4 quadrants. MSK: Good ROM in BUE & BLE. No edema or rash. Neuro: limited exam due to mental status. Course Course Course Narrative: 1800 passed to day team. Quality Measures none Orders Category Date Time Status Bedside COVID-19 Antigen Test NOW Care 08/22/24 00:18 Active Bedside Influenza A&B Antigen Test NOW Care 08/22/24 00:18 Completed COVID-19 Screening Questionnaire NOW Care 08/22/24 05:34 Active Decision to Admit X1 Care 08/22/24 05:34 Active EKG (ED ONLY) *Do not use* NOW Care 08/22/24 00:17 Completed Huerta [Urinary Catheter] QS Care 08/22/24 04:26 Active IV [Insert IV] NOW Care 08/22/24 00:17 Active Straight [In and Out Catheter] X1 Care 08/22/24 00:[address] chest abdomen pelvis wo Stat Exams 08/22/24 01:[address] head/brain wo con Stat Exams 08/22/24 01:35 Taken CXRP [XR chest 1V portable] Stat Exams 08/22/24 00:16 Taken EKG (ED Only) Stat Exams 08/22/24 00:16 Ordered ABG [Arterial Blood Gas] Stat Lab 08/22/24 03:09 Completed BNP [B-Type Natriuretic Peptide] Stat Lab 08/22/24 00:46 Completed Blood Culture (Lab) Stat Lab 08/22/24 00:46 Received C-Reactive Protein Stat Lab 08/22/24 00:25 Completed CBC Stat Lab 08/22/24 00:25 Completed CMP [Comprehensive Metabolic Panel] Stat Lab 08/22/24 00:25 Completed D-Dimer Stat Lab 08/22/24 00:25 Completed ESR [Sed Rate (ESR)] Stat Lab 08/22/24 00:25 Completed Lactate (Lactic Acid) Stat Lab 08/22/24 00:46 Completed Magnesium Stat Lab 08/22/24 00:25 Completed Procalcitonin Stat Lab 08/22/24 00:25 Completed RSV [Respiratory Syncytial Virus Ag] Stat Lab 08/22/24 00:35 Ordered Thyroid Stimulating Hormone Stat Lab 08/22/24 00:25 Completed Troponin I Stat Lab 08/22/24 00:25 Completed Urinalysis Stat Lab 08/22/24 00:22 Completed Albuterol/Ipratr Rt Kelly [Duoneb Rt Kelly] Med 08/22/24 01:31 Discontinued 3 ml INH X1 ONE MethylPREDNISolone.* [SoluMEDROL Inj] Med 08/22/24 00:38 Discontinued 125 mg IVP X1 ONE Piper/Tazo Inj [Zosyn Inj] 3.375 gm Med 08/22/24 00:38 Discontinued SODIUM CHLORIDE 0.9% (Popper) [Ns 0.9% (P)] 50 ml IV X1 BiPAP / CPAP NOW RT 08/22/24 01:31 Active Oxygen Delivery NOW RT 08/22/24 00:17 Active Vital Signs Vital signs: Vital Signs Temperature 97.0 F 08/22/24 00:24 Pulse Rate 82 08/22/24 00:24 Respiratory Rate 14 08/22/24 00:24 Blood Pressure 130/44 L 08/22/24 00:24 Pulse Oximetry (%) 89 L 08/22/24 00:24 Oxygen Delivery Method Oxy Mask 08/22/24 00:24 Oxygen Flow Rate 14 08/22/24 00:24 [facility] Patient data External records reviewed:: [facility] previous records and EMS form Clinical information provided by:: patient and EMS Social determinants that could affect healthcare access:: none Patient has the following chronic illnesses:: hypertension, paroxysmal atrial fibrillation, Asthma/COPD on 2 L nasal cannula oxygenation, insulin-dependent type 2 diabetes, depression How is presenting disease/condition affected by chronic disease/condition?: exacerbated by Evaluation data The following diagnostics were reviewed and interpreted by me:: lab results, radiology exam(s) and EKG tracing(s) Lab and/or radiology exams considered but not ordered:: CTA Interpretation Summary: PNA Medications Medications considered but not ordered:: none Medication administrations:: Medication Administration History Discontinued Medications Albuterol/Ipratropium (Albuterol/Ipratropium (Duoneb) Rt Kelly 3 Ml Nebu) 3 ml INH X1 ONE Stop: 08/22/24 01:32 Last Admin: 08/22/24 04:44 Dose: 3 ml Documented By: DEMETRIUS Piperacillin Sod/Tazobactam (Sod 3.375 gm/ Sodium Chloride) 50 mls @ 100 mls/hr IV X1 ONE Stop: 08/22/24 01:07 Last Infusion: 08/22/24 01:34 Dose: Infused Documented By: Admin: 08/22/24 01:02 Dose: 100 mls/hr Documented By: DIEGO Methylprednisolone Sodium Succinate (Methylprednisolone Sod Succ 62.5 Mg/Ml 2ml Vial) 125 mg IVP X1 ONE Stop: 08/22/24 00:39 Last Admin: 08/22/24 01:02 Dose: 125 mg Documented By: DIEGO Domingo methylprednisolone, duoneb. Consultations Consultation(s) initiated? (list below): No Diagnosis Differential Diagnosis ED Complaint MDM: PNA, ACS, trauma Most likely diagnosis given after review of the tests above:: PNA Admission Indicated Admission indicated?: indicated Explain why admission is indicated or not indicated:: Patient needs IV ABx and cultures Admission Request Was there a request for admission?: Yes Admission Attestation Admission request attestation: Discussed case with Dr. Abdullahi from Hospitalist service regarding admission. Discussed patients ED course, exam findings, labs, and radiology results. The Hospitalist requested CT head prior to admission. Disposition Plan Disposition Plan: other (specify) (passed to day shift) Medical Decision Making Differential Diagnosis Differential Diagnosis: PNA, ACS, trauma Lab Data 08/22/24 00:25 08/22/24 00:25 Labs: Lab Results 08/22/24 08/22/24 08/22/24 Range/Units 00:22 00:25 00:46 WBC 15.8 H (3.6-11.0) Thou/mm3 RBC 3.86 L (4.00-5.20) Miln/mm3 Hgb 7.8 L (12.0-16.0) g/dL Hct 28.2 L (36.0-46.0) % MCV 73 L (80-100) fL MCH 20.2 L (25.0-35.0) pg MCHC 27.7 L (31.0-37.0) g/dl RDW Std Deviation 63.3 H (36.4-46.3) fL Plt Count 317 (140-440) Thou/mm3 Neut % (Auto) 77 (37-80) % Lymph % (Auto) 12 (10-50) % [place] % (Auto) 8 (0-12) % Eos % (Auto) 1 (0-10) % Baso % (Auto) 0 (0-2.5) % Neut # (Auto) 12.2 H (1.8-7.7) Thou/mm3 Lymph # (Auto) 1.9 (1.0-4.8) Thou/mm3 [place] # (Auto) 1.2 H (0.0-0.8) Thou/mm3 Eos # (Auto) 0.2 (0.0-0.5) Thou/mm3 Baso # (Auto) 0.1 (0.0-0.2) Thou/mm3 Immature Gran # (Auto) 0.26 H (0.00-0.00) Thou/mm3 Absolute Nucleated RBC 0.00 (0.00-0.00) Thou/mm3 Immature Gran % 2 H (0-0) % Nucleated RBC % 0 (0) /100 WBC ESR 49 H (0-30) mm/hr D-Dimer 506 (<600) ng/mL Puncture Site ABG pH (7.35-7.45) ABG pCO2 (32.0-48.0) mmHg ABG pO2 (83-108) mmHg ABG HCO3 (20-26) mEq/L ABG O2 Saturation (91-98) % ABG Base Excess (-3-3) FiO2 % Sodium 143 (136-145) mMol/L Potassium 4.9 (3.4-5.1) mMol/L Chloride 104 (98-107) mMol/L Carbon Dioxide 35.7 H (20.0-31.0) mMol/L Anion Gap 3 L (7-16) BUN 32 H (9-23) mg/dL Creatinine 0.8 (0.6-1.3) mg/dL Estim Creat Clear Calc 61.1 (>60) mL/min eGFR > 60 (60 - ) See Note BUN/Creatinine Ratio 40 H (12-20) Ratio Glucose 129 H (74-106) mg/dL Calculated Osmolality 293 (275-295) Lactic Acid 1.2 (0.4-2.0) mMol/L Calcium 9.0 (8.3-10.6) mg/dL Corrected Calcium 9.2 (8.5-10.1) mg/dL Magnesium 2.3 (1.6-2.6) mg/dL Total Bilirubin 0.2 L (0.3-1.2) mg/dL AST 11 (0-34) U/L ALT < 7 L (10-49) U/L Alkaline Phosphatase 87 (46-116) U/L Troponin I < 0.020 (0.0-0.045) ng/mL C-Reactive Prot, Quant 5.8 H (0.0-0.9) mg/dL B-Natriuretic Peptide 254 H (0-100) pg/mL Total Protein 6.7 (5.7-8.2) gm/dL Albumin 3.8 (3.4-4.8) gm/dL Globulin 2.9 (2.3-3.5) gm/dL Albumin/Globulin Ratio 1.3 (1.2-2.2) Procalcitonin 0.15 (0.0-0.49) ng/ml TSH 14.39 H (0.55-4.78) uIU/mL Ur Collection Type Clean Catch Urine Color Yellow (Lt Yel-Yel) Urine Clarity Turbid A (Clear/Hazy) Urine pH 6.0 (5.0-7.0) Ur Specific [place] 1.025 (1.001-1.035) Urine Protein 2+ A (Neg - Trace) Urine Glucose (UA) Negative (Negative) Urine Ketones Negative (Negative) Urine Blood 3+ A (Negative) Urine Nitrite Negative (Negative) Urine Bilirubin Negative (Negative) Urine Urobilinogen (Auto) Negative (0.0-1.0) mg/dL Ur Leukocyte Esterase Positive (Negative) Urine RBC 252 H (0-3) /hpf Urine WBC 16 H (0-5) /hpf Ur Squamous Epith Cells 4 (0-5) /hpf Amorphous Crystals Present A (Absent) Urine Bacteria 1+ A (None) Hyaline Casts < 1 (0-1) /hpf 08/22/24 Range/Units 03:09 WBC (3.6-11.0) Thou/mm3 RBC (4.00-5.20) Miln/mm3 Hgb (12.0-16.0) g/dL Hct (36.0-46.0) % MCV (80-100) fL MCH (25.0-35.0) pg MCHC (31.0-37.0) g/dl RDW Std Deviation (36.4-46.3) fL Plt Count (140-440) Thou/mm3 Neut % (Auto) (37-80) % Lymph % (Auto) (10-50) % [place] % (Auto) (0-12) % Eos % (Auto) (0-10) % Baso % (Auto) (0-2.5) % Neut # (Auto) (1.8-7.7) Thou/mm3 Lymph # (Auto) (1.0-4.8) Thou/mm3 [place] # (Auto) (0.0-0.8) Thou/mm3 Eos # (Auto) (0.0-0.5) Thou/mm3 Baso # (Auto) (0.0-0.2) Thou/mm3 Immature Gran # (Auto) (0.00-0.00) Thou/mm3 Absolute Nucleated RBC (0.00-0.00) Thou/mm3 Immature Gran % (0-0) % Nucleated RBC % (0) /100 WBC ESR (0-30) mm/hr D-Dimer (<600) ng/mL Puncture Site Right Radial ABG pH 7.19 L* (7.35-7.45) ABG pCO2 93 H* (32.0-48.0) mmHg ABG pO2 73 L (83-108) mmHg ABG HCO3 36 H (20-26) mEq/L ABG O2 Saturation 92 (91-98) % ABG Base Excess 6 H (-3-3) FiO2 100 % Sodium (136-145) mMol/L Potassium (3.4-5.1) mMol/L Chloride (98-107) mMol/L Carbon Dioxide (20.0-31.0) mMol/L Anion Gap (7-16) BUN (9-23) mg/dL Creatinine (0.6-1.3) mg/dL Estim Creat Clear Calc (>60) mL/min eGFR (60 - ) See Note BUN/Creatinine Ratio (12-20) Ratio Glucose (74-106) mg/dL Calculated Osmolality (275-295) Lactic Acid (0.4-2.0) mMol/L Calcium (8.3-10.6) mg/dL Corrected Calcium (8.5-10.1) mg/dL Magnesium (1.6-2.6) mg/dL Total Bilirubin (0.3-1.2) mg/dL AST (0-34) U/L ALT (10-49) U/L Alkaline Phosphatase (46-116) U/L Troponin I (0.0-0.045) ng/mL C-Reactive Prot, Quant (0.0-0.9) mg/dL B-Natriuretic Peptide (0-100) pg/mL Total Protein (5.7-8.2) gm/dL Albumin (3.4-4.8) gm/dL Globulin (2.3-3.5) gm/dL Albumin/Globulin Ratio (1.2-2.2) Procalcitonin (0.0-0.49) ng/ml TSH (0.55-4.78) uIU/mL Ur Collection Type Urine Color (Lt Yel-Yel) Urine Clarity (Clear/Hazy) Urine pH (5.0-7.0) Ur Specific [place] (1.001-1.035) Urine Protein (Neg - Trace) Urine Glucose (UA) (Negative) Urine Ketones (Negative) Urine Blood (Negative) Urine Nitrite (Negative) Urine Bilirubin (Negative) Urine Urobilinogen (Auto) (0.0-1.0) mg/dL Ur Leukocyte Esterase (Negative) Urine RBC (0-3) /hpf Urine WBC (0-5) /hpf Ur Squamous Epith Cells (0-5) /hpf Amorphous Crystals (Absent) Urine Bacteria (None) Hyaline Casts (0-1) /[facility] Discharge Plan Prescriptions/Referrals Prescriptions/Med Rec: No Action quetiapine [Seroquel] 25 mg Tablet 25 mg PO QDAY amlodipine 5 mg Tablet 5 mg PO QDAY acetaminophen 500 mg Tablet 500 mg PO QDAY magnesium hydroxide [Milk of Magnesia] 400 mg/5 mL Suspension 30 ml PO Q72H PRN (Reason: Constipation) bisacodyl 10 mg Suppository 10 mg ID PRN PRN (Reason: Constipation) loratadine 10 mg Tablet 10 mg PO QDAY multivitamin with minerals Capsule 1 cap PO QDAY insulin glargine [Lantus Solostar U-100 Insulin] 100 unit/mL (3 mL) Insulin Pen 10 unit SUBCUT HS Rx Instructions: do not give if blood sugar less than 100 albuterol sulfate [ProAir HFA] 90 mcg/actuation HFA aerosol inhaler 1 inh inhalation Q6H PRN (Reason: shortness of breath or wheezing) metformin 500 mg tablet 500 mg PO BID polyvinyl alcohol [Artificial Tears (polyvin alc)] 1.4 % Drops 2 drp OPHTHALMIC (EYE) Q4H PRN (Reason: irritation) calcium carbonate 600 mg calcium (1,500 mg) Tablet 600 mg PO BID hydroxyzine HCl 25 mg Tablet 50 mg PO BID Rx Instructions: for itching duloxetine [Cymbalta] 30 mg Capsule,Delayed Release(Dr/Ec) 30 mg PO BID diphenhydramine HCl [Benadryl] 25 mg Capsule 25 mg PO BID Rx Instructions: for pruritus Referrals: Ama Barrera MD [Primary Care Provider] - In 1 week Problem List Clinical Impression: Pneumonia Patient/Caregiver Discharge Instructions Print Language: Uzbek Attestation Attestation At 6 AM on 08/22/2024, the care of the patient was transferred to Dr. BRUNO. Reza Haskins MD
[2024-08-22 00:35] LABS: Collection Type, Urine Clean Catch
[2024-08-22 00:38] LABS: Basophils # (Auto) 0.1 Thou/mm3 (0.0-0.2); Eosinophils # (Auto) 0.2 Thou/mm3 (0.0-0.5); Eosinophils % (Auto) 1 % (0-10); Immature Granulocytes % (Auto) 2 % (0-0); Lymphocytes % (Auto) 12 % (10-50); Monocytes # (Auto) 1.2 Thou/mm3 (0.0-0.8); Nucleated Red Blood Cell % 0 /100 WBC (0)
[2024-08-22 00:39] LABS: Basophils % (Auto) 0 % (0-2.5); Hematocrit 28.2 % (36.0-46.0); Immature Granulocytes Auto 0.26 Thou/mm3 (0.00-0.00); Lymphocytes # (Auto) 1.9 Thou/mm3 (1.0-4.8); Mean Corpuscular HGB Conc 27.7 g/dl (31.0-37.0); Mean Corpuscular Hemoglobin 20.2 pg (25.0-35.0); Mean Corpuscular Volume 73 fL (80-100); Monocytes % (Auto) 8 % (0-12); Neutrophils # (Auto) 12.2 Thou/mm3 (1.8-7.7); Neutrophils % (Auto) 77 % (37-80); Platelet Count 317 Thou/mm3 (140-440); RDW Standard Deviation 63.3 fL (36.4-46.3); Red Blood Count 3.86 Miln/mm3 (4.00-5.20); White Blood Count 15.8 Thou/mm3 (3.6-11.0)
[2024-08-22 00:42] LABS: Amorphous Crystals,Urine Present (Absent); Bacteria,Urine 1+; Bilirubin,Urine Negative (Negative); Blood,Urine 3+ (Negative); Clarity,Urine Turbid (Clear/Hazy); Color,Urine Yellow (Lt Yel-Yel); Glucose, Urine Negative (Negative); Hyaline Casts,Urine < 1 /hpf (0-1); Ketones,Urine Negative (Negative); Leukocyte Esterase,Urine Positive (Negative); Nitrite,Urine Negative (Negative); Protein,Urine 2+ (Neg - Trace); RBC,Urine 252 /hpf (0-3); Specific Gravity,Urine 1.025 (1.001-1.035); Squamous Epithelial Cell,Urine 4 /hpf (0-5); Urobilinogen,Urine Negative mg/dL (0.0-1.0); WBC,Urine 16 /hpf (0-5)
[2024-08-22 00:45] LABS: Hemoglobin 7.8 g/dL (12.0-16.0)
[2024-08-22 00:51] LABS: Sed Rate (ESR) 49 mm/hr (0-30)
[2024-08-22] MEDS: MethylPREDNISolone SOD SUCC 62.5 MG/ML 2ML VIAL 125 MG IVP (01:02)
[2024-08-22] MEDS: PIPER/TAZO INJ 3.375 GM in SODIUM CHLORIDE 0.9% (Popper) 50 ML IV ×4 (01:02→21:17)
[2024-08-22 01:04] LABS: Lactate (Lactic Acid) 1.2 mMol/L (0.4-2.0)
[2024-08-22 01:05] LABS: Alanine Aminotransferase < 7 U/L (10-49); Albumin, Serum 3.8 gm/dL (3.4-4.8); Albumin/Globulin Ratio 1.3 (1.2-2.2); Alkaline Phosphatase 87 U/L (46-116); Anion Gap 3 (7-16); Aspartate Amino Transferase 11 U/L (0-34); BUN/Creatinine Ratio 40 Ratio (12-20); Bilirubin,Total 0.2 mg/dL (0.3-1.2); Blood Urea Nitrogen 32 mg/dL (9-23); C-Reactive Protein 5.8 mg/dL (0.0-0.9); Calcium (Corrected) 9.2 mg/dL (8.5-10.1); Carbon Dioxide 35.7 mMol/L (20.0-31.0); Chloride 104 mMol/L (98-107); Creatinine (Component) 0.8 mg/dL (0.6-1.3); Estimated Creatinine Clearance 61.1 mL/min (>60); Globulin 2.9 gm/dL (2.3-3.5); Glucose 129 mg/dL (74-106); Magnesium 2.3 mg/dL (1.6-2.6); Osmolality,Calculated 293 (275-295); Potassium 4.9 mMol/L (3.4-5.1); Procalcitonin 0.15 ng/ml (0.0-0.49); Sodium 143 mMol/L (136-145); Thyroid Stimulating Hormone 14.39 uIU/mL (0.55-4.78); Total Protein 6.7 gm/dL (5.7-8.2); Troponin I < 0.020 ng/mL (0.0-0.045); eGFR > 60 See Note
[2024-08-22 01:23] LABS: B-Type Natriuretic Peptide 254 pg/mL (0-100)
[2024-08-22 01:31] LABS: D-Dimer 506 ng/mL (<600)
--- NOTE | 2024-08-22 01:35 | XR_ITS ---
Examination: CT brain head without contrast. 2-D sagittal coronal reconstructions Date and time of exam:September 01, 2024 0511 hrs. Indications: Altered mental status today CTDI: vol (mGy):51.1 DLP: (mGycm):1016 Technique: Multiple CT axial sections of the brain have been obtained, 5 mm slice thickness. Contrast has not been administered. 2-D sagittal, coronal reconstructions have been obtained Low dose protocols were performed. One or more of the following dose reduction techniques were used; automated exposure control, adjustment of the mA and/or KV according to patient size, use of iterative reconstruction technique. Findings: No significant ventricular enlargement. Intra-axial or extra-axial hemorrhage density is not seen. No mass effect or midline shift Basal cisterns are not remarkable. Fourth ventricle is midline. Cranial vault intact. Significant atrophy Impression: Negative for acute hemorrhage, mass effect or midline shift Advise clinical correlation follow-up accordingly
--- NOTE | 2024-08-22 01:35 | XR_ITS ---
Examination: CT chest, without intravenous contrast. CT abdomen, without intravenous contrast. CT pelvis, without intravenous contrast. 2-D sagittal and coronal reconstructions. 3-D reconstructions. Date and time of exam:September 01, 2024 0513 hrs. Indications: Onset chest abdominal pain today CTDI vol (mgy) 17.5 DLP (MGycm)1387 Technique: Multiple CT images, 3.0 mm slice thickness, obtained chest, abdomen, pelvis, with the high-resolution 64 slice scanner.. Sagittal and coronal 2-D reconstructions are obtained. 3-D reconstructions Low dose protocols were performed. One or more of the following dose reduction techniques were used; automated exposure control, adjustment of the mA and/or KV according to patient size, use of iterative reconstruction technique. Findings: No thoracic aortic aneurysm dilatation Pulmonary artery segments are not enlarged Extensive bilateral pneumonia, more severe in the right lung with moderate right and mild left pleural effusions Also atelectasis in the right lower lobe Mild calcification left anterior descending coronary artery Liver is irregular in contour No gallstones No splenic lesion Atrophic pancreas Minimal left hydronephrosis, 7 mm calculus in the left renal pelvis Abdominal aorta calcification No bowel obstruction Normal appendix Massive amounts of stool in the colon Trace ascites Severe osteopenia Impression: Bilateral pneumonia, extensive in the right lung Moderate right pleural effusion Cirrhosis Trace ascites 7 mm calculus left renal pelvis with mild left hydronephrosis Massive amounts of stool in the rectosigmoid with thickening the rectal wall which may be proctitis pattern but clinical correlation advised
--- NOTE | 2024-08-22 01:39 | EVENTNT_ITS ---
<Statement entered by Raymundo Finn MD - 08/24/24 05:42> I reviewed above note and agree with findings and plans. Documentation for date of: 08/22/24 Event Note Event Note: Called by ED to assess patient for likely sepsis. Requested head CT to establish baseline as this is not known. Will review patient's after head CT. Plan of care discussed with Attending Dr. Huma Bonilla MD PGY 1
[2024-08-22 03:14] LABS: Base Excess 6 (-3-3); HCO3 36 mEq/L (20-26); Inspired Oxygen, FIO2 100 %; O2 Saturation 92 % (91-98); PCO2 93 mmHg (32.0-48.0); PO2 73 mmHg (83-108)
[2024-08-22 03:18] LABS: Allen Test Performed/OK; Puncture Site Right Radial; pH, Arterial 7.19 (7.35-7.45)
--- NOTE | 2024-08-22 04:00 | PC.NURSE ---
pt stable. Sleeping .
[2024-08-22] MEDS: ALBUTEROL/IPRATROPIUM (Duoneb) RT SOL 3 ML NEBU INH ×4 (04:44→23:24)
--- NOTE | 2024-08-22 05:43 | PRELIM_ITS ---
CT scan of the head without intravenous contrast (axial sections with sagittal and coronal reformats). August 22, 2024 0511 hours Clinical History: AMS Comparison: None Findings: Beam hardening artifact through the posterior fossa limits evaluation. There is involutional atrophy of the cerebral hemispheres. There is no intracranial hemorrhage, extra-axial collection, mass, mass-effect or midline shift. There is good torres-white differentiation. There is no CT evidence of acute large vascular territorial infarct. Ventricles are not enlarged or effaced. There is atherosclerotic calcification along the intracranial vertebral arteries and carotid siphons. Visualized paranasal sinuses and tympanomastoid cavities are clear except for mild right maxillary sinus mucosal thickening. The bony calvarium is intact. There is hyperostosis frontalis interna. Impression: No intracranial hemorrhage, mass-effect or midline shift. No CT evidence of acute large vascular territorial infarct. Report Electronically Signed By: Ernie Piper 08/22/2024 5:43:07 AM [EST]
--- NOTE | 2024-08-22 06:17 | PC.NURSE ---
p[t was taken to CT with RN and returned no issues.
--- NOTE | 2024-08-22 06:26 | PRELIM_ITS ---
CT scan of the chest, abdomen and pelvis without intravenous contrast (axial sections with sagittal and coronal reformats). August 22, 2024 at 0513 hours Clinical History: Chest/abdominal pain. Comparison: None. Findings: Study is limited without IV contrast. Chest: Heart is normal in size. There is small pericardial effusion. There are small bilateral pleural effusions. There is atherosclerotic calcification along the thoracic aorta, great vessels and coronaries. There is no thoracic aortic aneurysm. There are patchy densities/consolidation within the lungs bilaterally, right worse than left, which may represent a combination of atelectasis and pneumonia. There is no pneumothorax. There is degenerative change in the thoracic spine. There is no acute osseous abnormality. Abdomen/pelvis: There is slight nodular contour of the liver, suggesting cirrhosis. There is some sludge or gallstones within the dependent gallbladder. The spleen, pancreas and adrenals are unremarkable. Right parapelvic renal cysts suggested. There is a 7.6 mm calculus within the left renal pelvis. Mild left hydronephrosis suggested. Other nonobstructive nephroliths noted within the left kidney. Small cyst suggested within the interpolar region of the left kidney. There is large fecal load within the rectosigmoid. There is wall thickening of the rectum as well as presacral soft tissue stranding, suggestive of stercoral colitis. There is no bowel obstruction. There are colonic diverticula without evidence of diverticulitis. Appendix is normal. There are vascular calcifications along the abdominal aorta and branch vessels without aneurysmal dilatation. There is a Huerta catheter within the urinary bladder, which is decompressed. There are pelvic phleboliths. There is small volume ascites around the liver. There is no free intraperitoneal air. There is no abdominal or pelvic lymphadenopathy. There is dextrocurvature and degenerative change of the lumbar spine. Impression: 1. Small bilateral pleural effusions. Patchy density/consolidation within the lungs bilaterally, right worse than left, which may represent a combination of atelectasis and pneumonia. 2. Cirrhosis. 3. A 7.6 mm obstructing calculus within the left renal pelvis with mild left hydronephrosis. 4. Large fecal load within the colon with stercoral colitis. Report Electronically Signed By: Ernie Piper 08/22/2024 6:26:01 AM [EST]
--- NOTE | 2024-08-22 07:23 | EDNOTE_ITS ---
Emergency Room Addendum Addendum Narrative: 0600: Care assumed from Dr. Haskins, the previous shift emergency physician. Past medical, surgical, social and family history reviewed. Vitals and home medications reviewed. I will assume the care of the patient at this time. Please refer to the emergency department record for history and examination from initial visit.? Physical exam by me shows patient under no acute distress at this time. 0809: Discussed test HPI, PMHx, lab, radiology results and/or management with hospitalist. Will admit for further evaluation and management. Accepts patient for admission. RADIOLOGY Procedure(s): CT head/brain wo con Accession Number(s): [id number] cc: Ama Barrera MD; Reza Haskins MD; Kartik Monaco MD~ Examination: CT brain head without contrast. 2-D sagittal coronal reconstructions Date and time of exam:September 01, 2024 0511 hrs. Indications: Altered mental status today CTDI: vol (mGy):51.1 DLP: (mGycm):1016 Technique: Multiple CT axial sections of the brain have been obtained, 5 mm slice thickness. Contrast has not been administered. 2-D sagittal, coronal reconstructions have been obtained Low dose protocols were performed. One or more of the following dose reduction techniques were used; automated exposure control, adjustment of the mA and/or KV according to patient size, use of iterative reconstruction technique. Findings: No significant ventricular enlargement. Intra-axial or extra-axial hemorrhage density is not seen. No mass effect or midline shift Basal cisterns are not remarkable. Fourth ventricle is midline. Cranial vault intact. Significant atrophy Impression: Negative for acute hemorrhage, mass effect or midline shift Advise clinical correlation follow-up accordingly Dictated By: Kartik Monaco MD Procedure(s): CT chest abdomen pelvis wo Accession Number(s): [id number] cc: Ama Barrera MD; Reza Haskins MD; Kartik Monaco MD~ Examination: CT chest, without intravenous contrast. CT abdomen, without intravenous contrast. CT pelvis, without intravenous contrast. 2-D sagittal and coronal reconstructions. 3-D reconstructions. Date and time of exam:September 01, 2024 0513 hrs. Indications: Onset chest abdominal pain today CTDI vol (mgy) 17.5 DLP (MGycm)1387 Technique: Multiple CT images, 3.0 mm slice thickness, obtained chest, abdomen, pelvis, with the high-resolution 64 slice scanner.. Sagittal and coronal 2-D reconstructions are obtained. 3-D reconstructions Low dose protocols were performed. One or more of the following dose reduction techniques were used; automated exposure control, adjustment of the mA and/or KV according to patient size, use of iterative reconstruction technique. Findings: No thoracic aortic aneurysm dilatation Pulmonary artery segments are not enlarged Extensive bilateral pneumonia, more severe in the right lung with moderate right and mild left pleural effusions Also atelectasis in the right lower lobe Mild calcification left anterior descending coronary artery Liver is irregular in contour No gallstones No splenic lesion Atrophic pancreas Minimal left hydronephrosis, 7 mm calculus in the left renal pelvis Abdominal aorta calcification No bowel obstruction Normal appendix Massive amounts of stool in the colon Trace ascites Severe osteopenia Impression: Bilateral pneumonia, extensive in the right lung Moderate right pleural effusion Cirrhosis Trace ascites 7 mm calculus left renal pelvis with mild left hydronephrosis Massive amounts of stool in the rectosigmoid with thickening the rectal wall which may be proctitis pattern but clinical correlation advised Dictated By: Kartik Monaco MD Procedure(s): XR chest 1V portable Accession Number(s): [id number] cc: Francisco Javier Olmedo MD; Ama Barrera MD; Katrik Monaco MD~ Examination: AP chest single view Technique one AP portable upright chest single view Exam date and time: August 22, 2024 0026 hrs. Comparison May 30, 2023 Indications: Shortness of breath today. Findings: Severe right lung pneumonia Pneumonia left perihilar left basilar region Mild prominence left ventricle Moderate osteopenia Impression: Bilateral pneumonia, extensive right lung Dictated By: Kartik Monaco MD
[2024-08-22 07:29] LABS: Base Excess 3 (-3-3); HCO3 34 mEq/L (20-26); Inspired Oxygen, FIO2 60 %; O2 Saturation 94 % (91-98); PCO2 110 mmHg (32.0-48.0); PO2 87 mmHg (83-108)
[2024-08-22 07:36] LABS: Allen Test Not Performed; Puncture Site Right Radial; pH, Arterial 7.09 (7.35-7.45)
--- NOTE | 2024-08-22 07:39 | PC.NURSE ---
notified of pt abg ph 7.09
--- NOTE | 2024-08-22 07:42 | PC.NURSE ---
in room with pt along with rt
--- NOTE | 2024-08-22 07:43 | PC.NURSE ---
pt is in bed with eyes closed on bipap very lethargic, have to rub her and call her name to get response. per provider and shift report pt is DNR.
--- NOTE | 2024-08-22 08:35 | PC.NURSE ---
NURSE PRACTICAL ADVISED PT HAD AN ABNORMAL READ ON EKG WENT TO CHECK PT WAS IN BED IN BED AND RESPONSIVE TO NAME
--- NOTE | 2024-08-22 08:37 | PC.NURSE ---
PT HAD A RUN OF VFIB
[2024-08-22] MEDS: PANTOPRAZOLE INJ 40 MG VIAL IVP (09:05)
[2024-08-22 09:08] LABS: Base Excess 6 (-3-3); HCO3 36 mEq/L (20-26); Inspired Oxygen, FIO2 40 %; O2 Saturation 91 % (91-98); PCO2 96 mmHg (32.0-48.0); PO2 69 mmHg (83-108)
[2024-08-22 09:10] LABS: Allen Test Performed/OK; Puncture Site Right Radial; pH, Arterial 7.18 (7.35-7.45)
--- NOTE | 2024-08-22 09:11 | PC.NURSE ---
PER LAB PH 7.18
--- NOTE | 2024-08-22 09:34 | PC.NURSE ---
called pharmacy for vancomycin
--- NOTE | 2024-08-22 10:15 | PC.NURSE ---
pt friend dhruv in room with pt
--- NOTE | 2024-08-22 11:16 | PC.NURSE ---
pt off bipap on oxy mask called RT SOFIA ADVISED TO INCREASE TO 6L
--- NOTE | 2024-08-22 11:54 | ESHP_ITS ---
Documentation for date of: 08/22/24 HPI History of Present Illness Chief complaint: Hypoxia History of present illness: History from chart review due to mental status 84-year-old male with past medical history of hypertension, paroxysmal atrial fibrillation, asthma/COPD on 2 L home oxygen, diabetes, depression was brought to the ER from SNF due to low oxygen saturation. Per report baseline mental status is AAOx2. On examination patient is nonverbal eyes closed does not respond to verbal stimuli. Barely opens eyes to very aggressive sternal rub. Initial ABG shows very significant acidosis. Patient was placed on BiPAP in the ED. patient was admitted for acute hypoxic respiratory failure likely secondary to pneumonia. ED course: Vitals on arrival BP 134/44, heart rate 81, saturating 90% on 14 L OxyMask, labs significant for leukocytosis, hemoglobin 7.8, initial ABG showed pH 7.09, CO2 110, O2 87, bicarb 34. UA shows blood, RBCs, WBCs, +1 bacteria. D-dimer is elevated, chest x-ray shows bilateral pneumonia, chest abdomen pelvis CTA shows Bilateral pneumonia, extensive in the right lung, Moderate right pleural effusion, Cirrhosis, Trace ascites, 7 mm calculus left renal pelvis with mild left hydronephrosis, Massive amounts of stool in the rectosigmoid with thickening the rectal wall which may be proctitis pattern but clinical correlation advised. Head CT negative for acute hemorrhage, mass effect, or midline shift. In the ED patient received Solu-Medrol 125 mg x 1, Zosyn, DuoNebs, Protonix PMHx: As above SxHx: hysterectomy, right breast lumpectomy Social Hx: Unknown FHx: Unknown Review of Systems Review of Systems ROS Unobtainable: unobtainable due to mental status Exam Vital Signs Temp Pulse Resp BP Pulse Ox O2 Del Method O2 Flow Rate 98.2 F 72 16 151/56 H 89 L BiPAP 4 08/22/24 10:00 08/22/24 11:18 08/22/24 11:18 08/22/24 10:08 08/22/24 11:18 08/22/24 10:00 08/22/24 11:18 FiO2 40 08/22/24 10:43 Narrative Exam Physical Exam GENERAL: NAD, AAOx0, lethargic, obese HEENT: Moist mucosa. Eyes open, symmetrical, & clear CARDIO: Heart RRR, no obvious murmurs PULM: No noted coughing/dyspnea, bilateral rhonchi GI: Abdomen soft, nondistended, no pain on palpation. Increased abdominal girth BSx4 SKIN/MSK/EXT: No wounds/rashes/edema/amputations, no pain on palpation. Pedal pulses present B/L Results: Labs 08/23/24 09:58 08/23/24 05:28 Labs: Short CBC 08/22/24 Range/Units 00:25 WBC 15.8 H (3.6-11.0) Thou/mm3 Hgb 7.8 L (12.0-16.0) g/dL Hct 28.2 L (36.0-46.0) % Plt Count 317 (140-440) Thou/mm3 BMP 08/22/24 00:25 Sodium 143 Potassium 4.9 Chloride 104 Carbon Dioxide 35.7 H BUN 32 H Creatinine 0.8 Glucose 129 H Calcium 9.0 Cardiac Enzymes 08/22/24 Range/Units 00:25 Troponin I < 0.020 (0.0-0.045) ng/mL Liver Function 08/22/24 Range/Units 00:25 Total Bilirubin 0.2 L (0.3-1.2) mg/dL AST 11 (0-34) U/L ALT < 7 L (10-49) U/L Alkaline Phosphatase 87 (46-116) U/L Albumin 3.8 (3.4-4.8) gm/dL Urine 08/22/24 Range/Units 00:22 Urine Color Yellow (Lt Yel-Yel) Urine Clarity Turbid A (Clear/Hazy) Urine pH 6.0 (5.0-7.0) Ur Specific [place] 1.025 (1.001-1.035) Urine Protein 2+ A (Neg - Trace) Urine Glucose (UA) Negative (Negative) ABG Interpretation ABG results: 08/22/24 08/22/24 08/22/24 03:09 07:23 09:05 ABG pH 7.19 L* 7.09 L* D 7.18 L* ABG pCO2 93 H* 110 H* D 96 H* D ABG pO2 73 L 87 69 L ABG HCO3 36 H 34 H 36 H ABG O2 Saturation 92 94 91 ABG Base Excess 6 H 3 6 H Quality Measures Quality Measures none Advance care planning discussed with:: patient Medications Home Medications and Allergies Home Medications ?Medication ?Instructions ?Recorded ?Confirmed ?Type acetaminophen 500 mg tablet 500 mg PO QDAY 07/26/21 History albuterol sulfate 90 mcg/actuation 1 inh inhalation Q6 H PRN shortness 07/26/21 07/31/22 History aerosol inhaler (ProAir HFA) of breath or wheezing Held on 06/14/24. Instructions: Unable to verify, re-evaluate with PCP amlodipine 5 mg tablet 5 mg PO QDAY 07/26/21 History bisacodyl 10 mg rectal suppository 10 mg NV PRN PRN Co nstipation 07/26/21 07/31/22 History insulin glargine 100 unit/mL (3 10 unit subcut HS 07/1706/08/24 History mL) subcutaneous pen (Lantus Solostar U-100 Insulin) loratadine 10 mg tablet 10 mg PO QDAY 07/26/2106/08 History magnesium hydroxide 400 mg/5 mL 30 ml PO Q72H PRN Cons tipation 07/26/21 07/31/22 History oral suspension (Milk of Magnesia) multivitamin with minerals 1 cap PO QDAY 07/26/2107/17 History quetiapine 25 mg tablet (Seroquel) 25 mg PO QDAY 07/2607/31/22 History Held on 06/14/24. Instructions: Unable to verify, re-evaluae with PCP metformin 500 mg tablet 500 mg PO BID 05/20/2206/08 History calcium carbonate 600 mg PO BID 07/31/2206/08 History duloxetine 30 mg capsule,delayed 30 mg PO BID 07/31/22 07/31/22 History release (Cymbalta) hydroxyzine HCl 25 mg tablet 50 mg PO BID 07/31/22 History polyvinyl alcohol 1.4 % eye drops 2 drp ophthalmic (ey e) Q4H PRN 07/31/22 07/31/22 History (Artificial Tears (polyvinyl irritation alcohol)) diphenhydramine HCl 25 mg capsule 25 mg PO BID 06/08/ 4 06/08/24 History (Benadryl) Allergies Allergy/AdvReac Type Severity Reaction Status Date / Time valsartan (From Diovan) Allergy Unknown Verified 08/22/24 00:36 Visit Medications Acetaminophen (Acetaminophen 325 Mg Tablet) 650 mg PO Q6H PRN PRN Reason: Fever >101.5 Stop: 09/21/24 07:57 Acetaminophen (Acetaminophen 325 Mg Tablet) 650 mg PO Q6H PRN PRN Reason: PAIN SCALE 1-3 (mild Stop: 09/21/24 08:03 Docusate Sodium (Docusate Sod 100 Mg Capsule) 100 mg PO QDAY [facility]; Protocol Stop: 09/21/24 08:59 Last Admin: 08/22/24 09:05 Dose: Not Given Piperacillin Sod/Tazobactam (Sod 3.375 gm/ Sodium Chloride) 50 mls @ 12.5 mls/hr IV Q8HR [facility] Stop: 08/29/24 08:13 Last Admin: 08/22/24 09:09 Dose: 12.5 mls/hr Vancomycin HCl 1,500 mg/ (Sodium Chloride) 500 mls @ 200 mls/hr IV X1 ONE Stop: 08/22/24 11:59 Ondansetron HCl (Ondansetron Inj 2 Mg/Ml Inj 2 Ml) 4 mg IV Q6H PRN; Protocol PRN Reason: NAUSEA OR VOMITING Stop: 09/21/24 07:57 Pantoprazole Sodium (Pantoprazole Inj 40 Mg Vial) 40 mg IVP QDAY [facility] Stop: 09/21/24 08:59 Last Admin: 08/22/24 09:05 Dose: 40 mg Pharmacy Consult (Vancomycin Pharmacy To Dose 1 Each Each) 1 each IV QDAY PRN PRN Reason: PROTOCOL Stop: 09/21/24 08:59 Sennosides (Senna Tablet) 1 tab PO QDAY [facility]; Protocol Stop: 09/21/24 08:59 Last Admin: 08/22/24 09:05 Dose: Not Given Discontinued Medications Albuterol/Ipratropium (Albuterol/Ipratropium (Duoneb) Rt Kelly 3 Ml Nebu) 3 ml INH X1 ONE Stop: 08/22/24 01:32 Last Admin: 08/22/24 04:44 Dose: 3 ml Piperacillin Sod/Tazobactam (Sod 3.375 gm/ Sodium Chloride) 50 mls @ 100 mls/hr IV X1 ONE Stop: 08/22/24 01:07 Last Infusion: 08/22/24 01:34 Dose: Infused Methylprednisolone Sodium Succinate (Methylprednisolone Sod Succ 62.5 Mg/Ml 2ml Vial) 125 mg IVP X1 ONE Stop: 08/22/24 00:39 Last Admin: 08/22/24 01:02 Dose: 125 mg Assessment & Plan Plan 84-year-old male with past medical history of hypertension, paroxysmal atrial fibrillation, asthma/COPD, diabetes, depression was brought to the ER due to low oxygen saturation. Per report baseline mental status is AAOx2. On examination patient is nonverbal eyes closed does not respond to verbal stimuli. Opens eyes to very aggressive sternal rub. Initial ABG shows very significant acidosis. Patient was placed on BiPAP in the ED. #Acute hypoxic respiratory failure likely secondary to community-acquired pneumonia #Right pleural effusion #Sepsis secondary to pneumonia Patient was brought to the ER from [facility] due to apparent low oxygen saturation On examination patient is nonverbal does not open eyes or respond to various stimuli However patient is protecting airway Initial ABGs showed pH 7.09, CO2 110, bicarb 34, O2 87 Subsequent ABGs have been improving latest 1 showing pH 7.27, CO2 80 On admission patient presented with SIRS 2/4 leukocytosis, tachypnea, Chest x-ray shows bilateral pneumonia Chest abdomen pelvis CT shows Bilateral pneumonia, extensive in the right lung, Moderate right pleural effusion qSOFA: 2, altered mental status, tachypnea 500 NS bolus given ? Chest physiotherapy ? DuoNebs every 4 hours ? BiPAP ? Blood cultures ordered ? Urine cultures ordered ? On vancomycin ? On Zosyn ? Follow-up RSV, flu/COVID, cocci #Acute encephalopathy Per report patient's baseline mental status is AAO x 2 However patient is barely arousable to various stimuli is currently AAO x 0 Likely secondary to acute infection #Hypertension Will resume antihypertensives as tolerated #Paroxysmal A-fib Per chart review patient has history of atrial fibrillation On EMR no antiarrhythmics noted or rate control agents ? Pending med rec #Diabetes mellitus Last A1c 6.7 from 2020 ? SSI ? A1c ? Hypoglycemia protocol in place Case discussed with my attending Dr. Alma Begum MD PGY-1 Disposition: Telemetry Fluids: None Feeding: N.p.o. until swallow eval passed Thrombo prophylaxis: Heparin Gastric Ulcer prophylaxis: Pantoprazole 40 mg IV daily CODE STATUS: DNR Attending Provider Attestation/Addendum Natalia Wadsworth DO, attest that I was physically present for the almeida portions of the service and evaluated the patient with the resident and I reviewed and discussed the case with the resident and agree with the resident's findings and plans of care as documented above Patient is an 84-year-old female with past medical history of hypertension, paroxysmal A-fib, COPD/asthma on 2 L home O2, diabetes, depression who was brought to ED due to desaturation at her [facility] facility. Per chart review, patient is ANO x 2 at baseline. However, patient on presentation was not interactive and lethargic. ABG was done in ED showing CO2 retention 93 and a pH of 7.19. CT chest showed bilateral pneumonia extensive in the right lung with moderate right pleural effusion. She is also noted to have a 7 mm calculus in the left renal pelvis with mild left hydronephrosis. Head CT was negative for any acute intracranial findings. Patient had been placed on BiPAP in the ED, but without any improvement in mental status. ABG showed pH of 7.09 with CO2 of 110 with PaO2 of 87. Changes to BiPAP were made with improvement to 7.1 . SNF paperwork also shows that CODE STATUS is DNR. This was further confirmed by patient's friend David Thayer. Patient is noted to have significant rhonchi and diminished breath sounds in the right lung cruz. Patient only moans and is agitated due to BiPAP mask. She is also noted to have very weak cough. Patient's friend was at bedside at time of evaluation and stated that the patient would not want any aggressive measures as she had previously expressed. Will admit patient to telemetry for further workup and medical management of acute hypercapnic respiratory failure secondary to COPD and pneumonia. Will start patient on broad-spectrum IV antibiotics vancomycin and Zosyn as she comes from a fdc facility. Will start breathing treatments and chest PT due to scattered rhonchi. Will titrate O2 as tolerated. Will also have speech evaluation once patient is more alert, but will place n.p.o. at this time as patient will be needing continuous BiPAP.
--- NOTE | 2024-08-22 12:54 | PC.NURSE ---
delayed giving vanco due to other antibiotic infusing
[2024-08-22] MEDS: Vancomycin Inj 1,500 MG in SODIUM CHLORIDE 0.9% 500 ML 500 ML 200 MG IV (13:00)
[2024-08-22 13:06] LABS: Base Excess 8 (-3-3); HCO3 36 mEq/L (20-26); Inspired Oxygen, FIO2 6 %; O2 Saturation 84 % (91-98); PCO2 80 mmHg (32.0-48.0); pH, Arterial 7.27 (7.35-7.45)
[2024-08-22 13:10] LABS: PO2 52 mmHg (83-108)
[2024-08-22 13:11] LABS: Allen Test Performed/OK; Puncture Site Right Radial
[2024-08-22 15:37] LABS: Respiratory Syncytial Virus Ag Negative (Negative)
--- NOTE | 2024-08-22 15:43 | PC.NURSE ---
Per Dr. Marquez hold off on nurse swallow screen for now, pt. needs to go back on BiPAP. Swallow screen can be done on AM shift.
[2024-08-22] MEDS: SODIUM CHLORIDE 0.9% 500 ML 500 ML 999 ML IV (16:28)
[2024-08-22] MEDS: HEPARIN SOD INJ 5000 UNIT/ML VIAL SC ×2 (16:28→21:16)
[2024-08-23] VITALS (13 sets, daily range): BP systolic 119–153; BP diastolic 48–73; PULSE 66–126; RESP 18–30; TEMP 36.3–37.2; O2SAT 92–100; BMI 24.6
[2024-08-23] MEDS: ALBUTEROL/IPRATROPIUM (Duoneb) RT SOL 3 ML NEBU INH ×6 (03:14→23:15)
[2024-08-23] MEDS: HEPARIN SOD INJ 5000 UNIT/ML VIAL SC ×3 (05:53→21:11)
[2024-08-23] MEDS: PIPER/TAZO INJ 3.375 GM in SODIUM CHLORIDE 0.9% (Popper) 50 ML IV ×3 (05:54→21:11)
[2024-08-23 06:27] LABS: Basophils % (Auto) 0 % (0-2.5); Eosinophils % (Auto) 0 % (0-10); Immature Granulocytes % (Auto) 1 % (0-0); Immature Granulocytes Auto 0.07 Thou/mm3 (0.00-0.00); Lymphocytes # (Auto) 0.7 Thou/mm3 (1.0-4.8); Lymphocytes % (Auto) 7 % (10-50); Mean Corpuscular HGB Conc 28.3 g/dl (31.0-37.0); Mean Corpuscular Hemoglobin 20.4 pg (25.0-35.0); Mean Corpuscular Volume 72 fL (80-100); Monocytes % (Auto) 10 % (0-12); Neutrophils # (Auto) 8.1 Thou/mm3 (1.8-7.7); Neutrophils % (Auto) 82 % (37-80); Nucleated Red Blood Cell % 0 /100 WBC (0); Platelet Count 280 Thou/mm3 (140-440); RDW Standard Deviation 60.9 fL (36.4-46.3); Red Blood Count 3.34 Miln/mm3 (4.00-5.20); White Blood Count 9.9 Thou/mm3 (3.6-11.0)
[2024-08-23 06:33] LABS: Alanine Aminotransferase < 7 U/L (10-49); Albumin, Serum 3.4 gm/dL (3.4-4.8); Albumin/Globulin Ratio 1.3 (1.2-2.2); Alkaline Phosphatase 71 U/L (46-116); Anion Gap 6 (7-16); Aspartate Amino Transferase 13 U/L (0-34); BUN/Creatinine Ratio 47 Ratio (12-20); Bilirubin,Total 0.2 mg/dL (0.3-1.2); Blood Urea Nitrogen 28 mg/dL (9-23); Calcium 9.2 mg/dL (8.3-10.6); Calcium (Corrected) 9.7 mg/dL (8.5-10.1); Carbon Dioxide 32.9 mMol/L (20.0-31.0); Chloride 109 mMol/L (98-107); Creatinine (Component) 0.6 mg/dL (0.6-1.3); Estimated Creatinine Clearance 70.3 mL/min (>60); Globulin 2.7 gm/dL (2.3-3.5); Glucose 77 mg/dL (74-106); Magnesium 2.3 mg/dL (1.6-2.6); Osmolality,Calculated 298 (275-295); Potassium 4.9 mMol/L (3.4-5.1); Sodium 148 mMol/L (136-145); Total Protein 6.1 gm/dL (5.7-8.2); eGFR > 60 See Note
[2024-08-23 06:44] LABS: Hemoglobin 6.8 g/dL (12.0-16.0)
--- NOTE | 2024-08-23 06:48 | PC.NURSE ---
Called hospitalist, spoke to resident Dr. Zaragoza, made aware Hgb is 6.8, no new orders received at this time.
[2024-08-23 08:32] LABS: Path Review Blood Smear Sent to Pathologist
[2024-08-23 08:37] LABS: Misc Send Out* See Sep Rpt
[2024-08-23] MEDS: amLODIPine BESYLATE 5 MG TABLET PO (09:16)
[2024-08-23] MEDS: SENNA TABLET 1 TAB PO (09:16)
[2024-08-23] MEDS: ASPIRIN 81 MG CHEW PO (09:16)
[2024-08-23] MEDS: DOCUSATE SOD LIQD 100 MG/10 ML UDC PO (09:17)
[2024-08-23] MEDS: PANTOPRAZOLE INJ 40 MG VIAL IVP (09:17)
--- NOTE | 2024-08-23 09:27 | PCS.ST ---
Swallow Eval completed. Diet started: puree & honey thick liquids. Needs 1:1 feeder. Oral care.
[2024-08-23] MEDS: VANCOMYCIN/NS 1 GM IVPB 200 ML IV (09:48)
--- NOTE | 2024-08-23 10:08 | PC.SS ---
Nelli Sanches is an 84 year old female admitted to [facility] for Hypoxia. SS made over the phone contact with the pts friend David Thayer [phone] in attempt to complete initial assessment. Role and reason explained to David. 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 Per David she is the pts surrogate decision maker. Pt is bedbound at [facility], and will require gurney transport upon DC. No further needs identified at this time. SS will remain available for any additional needs or concerns,
[2024-08-23 10:18] LABS: Hematocrit 24.9 % (36.0-46.0)
--- NOTE | 2024-08-23 12:06 | ESPR_ITS ---
<Statement entered by Yolanda Douglas MD - 08/23/24 18:14> Patient seen and examined at bedside. No acute overnight events reported. Patient seen using 10 L nasal cannula, and decreased to 6 L, saturating well above 90% and mentation has significantly improved to A&O x 1 (name). Continue with IV Abx, CPT, BIPAP at night, and breathing treatments IMMANUEL. Patient also presented with low H&H today, and repeat was around 7. Will continue to hold his home Eliquis but will continue with Heparin SC for DVT prophylaxsis. Patient's HR is WNL. Cocci IgM negative, and pending Cocci IgG. I discussed with and supervised the wireless internet installer physician who took care of this patient. I personally saw and examined the patient and discussed the assessment and plan with the entire medicine team, including my attending , I agree with most of the assessment and plan as documented below Yolanda Douglas M.D. PGY-2 Disclaimer: Despite multiple revisions, due to the dictation software being used, the document bellow may not be free of grammatical errors including phonetic/typographic errors. However, this does not deter from our commitment to providing health care in the patient's best interest in mind. Documentation for date of: 08/23/24 Subjective Subjective Interval history: Patient evaluated today at the bedside. No overnight events reported. Mentation has improved compared to yesterday. Patient is now able to talk and converse and is stating that she is hungry. Vital signs stable at this time. Labs significant for 1 g drop in hemoglobin repeat H&H was ordered. Will continue current management with IV antibiotics, breathing treatments, and BiPAP at night. Exam Vital Signs Temp Pulse Resp BP Pulse Ox O2 Del Method O2 Flow Rate 99.0 F 76 18 130/68 99 Oxy Mask 5 08/23/24 12:00 08/23/24 12:00 08/23/24 12:00 08/23/24 12:00 08/23/24 12:00 08/23/24 12:00 08/23/24 12:00 FiO2 40 08/23/24 08:00 Narrative Exam Physical Exam GENERAL: NAD, AAOx1, lethargic, obese HEENT: Moist mucosa. Eyes open, symmetrical, & clear CARDIO: Heart RRR, no obvious murmurs PULM: Cough, bilateral rhonchi, congested GI: Abdomen soft, nondistended, no pain on palpation. Increased abdominal girth BSx4 SKIN/MSK/EXT: No wounds/rashes/edema/amputations, no pain on palpation. Pedal pulses present B/L Objective Labs 08/24/24 05:09 08/24/24 05:09 Labs: Laboratory Results - last 24 hr 08/22/24 08/22/24 08/23/24 13:02 14:48 05:28 WBC 9.9 D RBC 3.34 L Hgb 6.8 L* Hct 24.0 L MCV 72 L MCH 20.4 L MCHC 28.3 L RDW Std Deviation 60.9 H Plt Count 280 D Neut % (Auto) 82 H Lymph % (Auto) 7 L [place] % (Auto) 10 Eos % (Auto) 0 Baso % (Auto) 0 Neut # (Auto) 8.1 H Lymph # (Auto) 0.7 L [place] # (Auto) 1.0 H Eos # (Auto) 0.0 Baso # (Auto) 0.0 Immature Gran # (Auto) 0.07 H Absolute Nucleated RBC 0.00 Immature Gran % 1 H Nucleated RBC % 0 Smear Path Review Sent to Pathologist Puncture Site Right Radial ABG pH 7.27 L ABG pCO2 80 H* D ABG pO2 52 L* ABG HCO3 36 H ABG O2 Saturation 84 L ABG Base Excess 8 H FiO2 6 Sodium 148 H Potassium 4.9 Chloride 109 H Carbon Dioxide 32.9 H Anion Gap 6 L BUN 28 H Creatinine 0.6 Estim Creat Clear Calc 70.3 eGFR > 60 BUN/Creatinine Ratio 47 H Glucose [address] Glu mg/dL Cancelled Hemoglobin A1c Cancelled Calculated Osmolality 298 H Calcium 9.2 Corrected Calcium 9.7 Magnesium 2.3 Total Bilirubin 0.2 L AST 13 ALT < 7 L Alkaline Phosphatase 71 Total Protein 6.1 Albumin 3.4 Globulin 2.7 Albumin/Globulin Ratio 1.3 RSV Rapid Negative 08/23/24 09:58 WBC RBC Hgb 7.0 L Hct 24.9 L MCV MCH MCHC RDW Std Deviation Plt Count Neut % (Auto) Lymph % (Auto) [place] % (Auto) Eos % (Auto) Baso % (Auto) Neut # (Auto) Lymph # (Auto) [place] # (Auto) Eos # (Auto) Baso # (Auto) Immature Gran # (Auto) Absolute Nucleated RBC Immature Gran % Nucleated RBC % Smear Path Review Puncture Site ABG pH ABG pCO2 ABG pO2 ABG HCO3 ABG O2 Saturation ABG Base Excess FiO2 Sodium Potassium Chloride Carbon Dioxide Anion Gap BUN Creatinine Estim Creat Clear Calc eGFR BUN/Creatinine Ratio Glucose Estimated Ave Glu mg/dL Hemoglobin A1c Calculated Osmolality Calcium Corrected Calcium Magnesium Total Bilirubin AST ALT Alkaline Phosphatase Total Protein Albumin Globulin Albumin/Globulin Ratio RSV Rapid ABG Interpretation ABG results: 08/22/24 08/22/24 08/22/24 03:09 07:23 09:05 ABG pH 7.19 L* 7.09 L* D 7.18 L* ABG pCO2 93 H* 110 H* D 96 H* D ABG pO2 73 L 87 69 L ABG HCO3 36 H 34 H 36 H ABG O2 Saturation 92 94 91 ABG Base Excess 6 H 3 6 H 08/22/24 13:02 ABG pH 7.27 L ABG pCO2 80 H* D ABG pO2 52 L* ABG HCO3 36 H ABG O2 Saturation 84 L ABG Base Excess 8 H Quality Measures Quality Measures none Advance care planning discussed with:: patient Assessment & Plan Assessment Current Active Medications: Generic Name Dose Route Start Last Admin Trade Name Freq PRN Reason Stop Dose Admin Acetaminophen 650 mg 08/22/24 07:58 Acetaminophen 325 Mg Tablet PO 09/21/24 07:57 Q6H PRN Fever >101.5 Acetaminophen 650 mg 08/22/24 08:04 Acetaminophen 325 Mg Tablet PO 09/21/24 08:03 Q6H PRN PAIN SCALE 1-3 (mild Albuterol/Ipratropium 3 ml 08/22/24 15:00 08/23/24 11:25 Albuterol/Ipratropium (Duoneb) Rt Kelly 3 Ml Nebu INH 09/21/24 14:59 3 ml Q4HRRT IMMANUEL Administration Amlodipine Besylate 5 mg 08/23/24 09:00 08/23/24 09:16 Amlodipine Besylate 5 Mg Tablet PO 09/22/24 08:59 5 mg QDAY IMMANUEL Administration Aspirin 81 mg 08/23/24 09:15 08/23/24 09:16 Aspirin 81 Mg Chew PO 09/22/24 09:14 81 mg QDAY IMMANUEL Administration Atorvastatin Calcium 20 mg 08/23/24 21:00 Atorvastatin Calcium 20 Mg Tablet PO 09/22/24 20:59 HS IMMANUEL Dextrose 25 ml 08/22/24 15:07 Dextrose 50%-Water Inj 50 Ml Syringe IV 09/21/24 15:06 Q15MIN PRN BG 50-70 responsive npo pt Dextrose 50 ml 08/22/24 15:07 Dextrose 50%-Water Inj 50 Ml Syringe IV 09/21/24 15:06 Q15MIN PRN BG <50 OR BG <70 & pt unresponsive Docusate Sodium 100 mg 08/23/24 09:15 08/23/24 09:17 Docusate Sod Liqd 100 Mg/10 Ml Udc PO 09/22/24 09:14 100 mg QDAY IMMANUEL Administration Protocol Glucagon 1 mg 08/22/24 15:07 Glucagon Inj 1 Mg Vial IM Q15MIN PRN BG <70, and no IV access Heparin Sodium (Porcine) 5,000 unit 08/22/24 15:45 08/23/24 05:53 Heparin Sod Inj 5000 Unit/Ml Vial SC 09/05/24 15:44 5,000 unit Q8HR IMMANUEL Administration Piperacillin Sod/Tazobactam 50 mls @ 12.5 mls/hr 08/22/24 08:14 08/23/24 05:54 Sod 3.375 gm/ Sodium Chloride IV 08/29/24 08:13 12.5 mls/hr Q8HR IMMANUEL Administration Vancomycin/Sodium Chloride 200 mls @ 120 mls/hr 08/23/24 10:00 08/23/24 09:48 Vancomycin/Ns 1 Gm Ivpb IV 08/30/24 09:59 120 mls/hr Q24H IMMANUEL Administration Insulin Human Lispro 0 unit 08/22/24 18:00 08/23/24 11:49 Insulin Lispro (Admelog) 1 Unit/0.01 Ml Unit SC 09/21/24 17:59 Not Given Q6HR [facility] Protocol Ondansetron HCl 4 mg 08/22/24 07:58 Ondansetron Inj 2 Mg/Ml Inj 2 Ml IV 09/21/24 07:57 Q6H PRN NAUSEA OR VOMITING Protocol Pantoprazole Sodium 40 mg 08/22/24 09:00 08/23/24 09:17 Pantoprazole Inj 40 Mg Vial IVP 09/21/24 08:59 40 mg QDAY IMMANUEL Administration Pharmacy Consult 1 each 08/22/24 09:00 Vancomycin Pharmacy To Dose 1 Each Each IV 09/21/24 08:59 QDAY PRN PROTOCOL Sennosides 1 tab 08/22/24 09:00 08/23/24 09:16 Senna Tablet PO 09/21/24 08:59 1 tab QDAY IMMANUEL Administration Protocol Plan 84-year-old male with past medical history of hypertension, paroxysmal atrial fibrillation, asthma/COPD, diabetes, depression was brought to the ER due to low oxygen saturation. Per report baseline mental status is AAOx2. On examination patient is nonverbal eyes closed does not respond to verbal stimuli. Opens eyes to very aggressive sternal rub. Initial ABG shows very significant acidosis. Patient was placed on BiPAP in the ED. #Acute hypoxic respiratory failure likely secondary to community-acquired pneumonia #Right pleural effusion #Sepsis secondary to pneumonia Patient was brought to the ER from [facility] due to apparent low oxygen saturation On examination patient is nonverbal does not open eyes or respond to various stimuli However patient is protecting airway Initial ABGs showed pH 7.09, CO2 110, bicarb 34, O2 87 Subsequent ABGs have been improving latest 1 showing pH 7.27, CO2 80 On admission patient presented with SIRS 2/4 leukocytosis, tachypnea, Chest x-ray shows bilateral pneumonia Chest abdomen pelvis CT shows Bilateral pneumonia, extensive in the right lung, Moderate right pleural effusion qSOFA: 2, altered mental status, tachypnea 500 NS bolus given Blood cultures negative in 24 hours RSV negative, flu COVID-negative, ? Chest physiotherapy ? DuoNebs every 4 hours ? BiPAP ? Urine cultures ordered ? On vancomycin ? On Zosyn ? Follow-up cocci #Acute encephalopathy Per report patient's baseline mental status is AAO x 2 However patient is barely arousable to various stimuli is currently AAO x 0 Likely secondary to acute infection #Hypertension Will resume antihypertensives as tolerated #Paroxysmal A-fib Per chart review patient has history of atrial fibrillation On EMR no antiarrhythmics noted or rate control agents Per chart review patient is taking Eliquis 5 mg p.o. twice daily However hemoglobin has dropped by 1 g ? Hold anticoagulation at this time #Diabetes mellitus Last A1c 6.7 from 2020 A1c was ordered however was probably sent out ? SSI ? Hypoglycemia protocol in place Case discussed with my senior Dr. Douglas PGY-[address] Alma Begum MD PGY-1 Disposition: Telemetry Fluids: None Feeding: Carb consistent Thrombo prophylaxis: Heparin Gastric Ulcer prophylaxis: Pantoprazole CODE STATUS: DNR Attending Provider Attestation/Addendum Natalia Wadsworth DO, attest that I was physically present for the almeida portions of the service and evaluated the patient with the resident and I reviewed and discussed the case with the resident and agree with the resident's findings and plans of care as documented above Patient seen and evaluated this AM. She continues to have scattered congestion and rhonchi. Patient is A&Ox2, back at baseline. She states she is very hungry and would like something to eat. Will have patient work with ST and advance diet as tolerated. Patient not needing BiPap today and currently on 7L oxymask. Will titrate O2 as tolerated. She denies any chest pain, fevers, chills, nausea or vomiting. Continue with chest PT.
[2024-08-23 12:42] LABS: Cocci Serology, IgM Negative (Negative)
[2024-08-23] MEDS: ATORVASTATIN CALCIUM 20 MG TABLET PO (21:11)
[2024-08-24] VITALS (20 sets, daily range): BP systolic 129–158; BP diastolic 51–76; PULSE 64–80; RESP 16–27; TEMP 36.1–37.1; O2SAT 95–100; BMI 24.5
[2024-08-24] MEDS: ALBUTEROL/IPRATROPIUM (Duoneb) RT SOL 3 ML NEBU INH ×6 (03:23→22:40)
[2024-08-24] MEDS: PIPER/TAZO INJ 3.375 GM in SODIUM CHLORIDE 0.9% (Popper) 50 ML IV (05:07)
[2024-08-24] MEDS: HEPARIN SOD INJ 5000 UNIT/ML VIAL SC (05:09)
[2024-08-24 06:00] LABS: Basophils % (Auto) 1 % (0-2.5); Eosinophils # (Auto) 0.1 Thou/mm3 (0.0-0.5); Eosinophils % (Auto) 1 % (0-10); Immature Granulocytes % (Auto) 0 % (0-0); Immature Granulocytes Auto 0.02 Thou/mm3 (0.00-0.00); Lymphocytes # (Auto) 1.7 Thou/mm3 (1.0-4.8); Lymphocytes % (Auto) 21 % (10-50); Mean Corpuscular HGB Conc 28.5 g/dl (31.0-37.0); Mean Corpuscular Hemoglobin 20.1 pg (25.0-35.0); Mean Corpuscular Volume 70 fL (80-100); Monocytes # (Auto) 0.9 Thou/mm3 (0.0-0.8); Monocytes % (Auto) 12 % (0-12); Neutrophils # (Auto) 5.1 Thou/mm3 (1.8-7.7); Neutrophils % (Auto) 65 % (37-80); Nucleated Red Blood Cell % 0 /100 WBC (0); Platelet Count 292 Thou/mm3 (140-440); Red Blood Count 3.24 Miln/mm3 (4.00-5.20); White Blood Count 7.8 Thou/mm3 (3.6-11.0)
[2024-08-24 06:10] LABS: Hematocrit 22.8 % (36.0-46.0); Hemoglobin 6.5 g/dL (12.0-16.0)
[2024-08-24 06:58] LABS: Alanine Aminotransferase < 7 U/L (10-49); Albumin, Serum 3.4 gm/dL (3.4-4.8); Albumin/Globulin Ratio 1.4 (1.2-2.2); Alkaline Phosphatase 63 U/L (46-116); Anion Gap 3 (7-16); Aspartate Amino Transferase 11 U/L (0-34); BUN/Creatinine Ratio 42 Ratio (12-20); Bilirubin,Total 0.3 mg/dL (0.3-1.2); Blood Urea Nitrogen 25 mg/dL (9-23); Calcium (Corrected) 9.5 mg/dL (8.5-10.1); Chloride 107 mMol/L (98-107); Creatinine (Component) 0.6 mg/dL (0.6-1.3); Estimated Creatinine Clearance 70.3 mL/min (>60); Globulin 2.5 gm/dL (2.3-3.5); Glucose 80 mg/dL (74-106); Magnesium 2.2 mg/dL (1.6-2.6); Osmolality,Calculated 293 (275-295); Potassium 4.6 mMol/L (3.4-5.1); Sodium 146 mMol/L (136-145); Total Protein 5.9 gm/dL (5.7-8.2); eGFR > 60 See Note
[2024-08-24] MEDS: amLODIPine BESYLATE 5 MG TABLET PO (09:54)
[2024-08-24] MEDS: SENNA TABLET 1 TAB PO (09:55)
[2024-08-24] MEDS: DOCUSATE SOD LIQD 100 MG/10 ML UDC PO ×2 (09:55→18:26)
[2024-08-24] MEDS: VANCOMYCIN/NS 1 GM IVPB 200 ML IV (09:55)
[2024-08-24] MEDS: PANTOPRAZOLE INJ 40 MG VIAL IVP (09:55)
--- NOTE | 2024-08-24 10:13 | XR_ITS ---
EXAMINATION: XR chest 1V portable ORDERING PROVIDER: Jared Begum MD HISTORY: r/o CHF TECHNIQUE: Single portable AP radiograph of the chest. COMPARISON: 08/22/2024, chest radiographs FINDINGS: Lines and Tubes: Overlying monitoring leads. Lungs: Hypoinflated lungs. Improved right-sided consolidation with improved aeration. Persistent right middle/lower lobe air bronchograms. Persistent airspace opacities left lung base/retrocardiac. Questionable 3 mm ovoid calcified granuloma right upper lobe. Pleura: Moderate blunting right, mild blunting left costophrenic angles. This is improved on the right. No pneumothorax. Cardiomediastinal Silhouette: Unchanged uncoiled aorta with calcifications aortic arch. Soft Tissues/Bones: Moderate bony degenerative changes. Diffuse osteopenia. IMPRESSION: Hypoinflated lungs with improved aeration of the right lung and persistent right greater than left lower lung airspace opacities and right middle/lower lobe consolidation. Improved but persistent moderate right, small left pleural effusions.
--- NOTE | 2024-08-24 10:16 | ECHO_ITS ---
Transthoracic Echo Report Ht (in): 66 Wt (lb): 165 Exam Location: Portable Status: Inpatient Mechanical Applications Engineer: RAMÍREZ Silva^^^^ Indications: Procedure Performed: BP: 124 / 72 HR: 72 Technical Quality: Technically difficult study MEASUREMENTS (Male / Female) Normal Values 2D ECHO LV Diastolic Diameter PLAX 5.2 cm 4.2 - 5.9 / 3.9 - 5.3 cm LV Systolic Diameter PLAX 3.6 cm IVS Diastolic Thickness 0.6 cm 0.6 - 1.0 / 0.6 - 0.9 cm LVPW Diastolic Thickness 0.9 cm 0.6 - 1.0 / 0.6 - 0.9 cm LV Relative Wall Thickness 0.3 LVOT Diameter 1.3 cm Aortic Root Diameter 2.7 cm LA Systolic Diameter LX 3.7 cm 3.0 - 4.0 / 2.7 - 3.8 cm LV Ejection Fraction MOD 4C 63.5 % LV Cardiac Index MOD 4C 3569.3 cm?/min?m? LV Ejection Fraction 4C AL 64.3 % LV Cardiac Index 4C AL 3741.9 cm?/min?m? DOPPLER AV Peak Velocity 199.3 cm/s AV Peak Gradient 15.9 mmHg AV Mean Gradient 10.0 mmHg AV Velocity Time Integral 41.4 cm AI Peak Velocity 265.0 cm/s AI Peak Gradient 28.1 mmHg AI Pressure Half Time 361.0 ms LVOT Peak Velocity 87.9 cm/s LVOT Peak Gradient 3.1 mmHg LVOT Velocity Time Integral 22.0 cm LVOT Cardiac Index 1117.1 cm?/min?m? AV Area Cont Eq vti 0.7 cm? AV Area Cont Eq pk 0.6 cm? MV Area PHT 4.1 cm? MR Peak Velocity 450.0 cm/s MR Peak Gradient 81.0 mmHg Mitral E Point Velocity 102.0 cm/s Mitral A Point Velocity 104.0 cm/s Mitral E to A Ratio 1.0 LV E' Lateral Velocity 10.9 cm/s Mitral E to LV E' Lateral Ratio 9.4 LV E' Septal Velocity 6.5 cm/s Mitral E to LV E' Septal Ratio 15.7 TR Peak Velocity 255.5 cm/s TR Peak Gradient 26.1 mmHg FINDINGS Left Ventricle Normal left ventricular size, wall thickness, systolic function with no obvious regional wall motion abnormalities. There is grade II diastolic dysfunction of the left ventricle (pseudonormal filling pattern). The ejection fraction is visually estimated at 55-60 %. Right Ventricle The right ventricle is normal in size and systolic function. The estimated right ventricular systolic pressure, 27 mmHg. Left Atrium The left atrium is normal by two-dimensional, color flow and Doppler imaging with no structural abnormalities, no thrombus formation present. Right Atrium The right atrium is normal by two-dimensional imaging, color flow and Doppler imaging with no structural abnormalities, no thrombus formation present. Atrial Septum The interatrial septum appears normal with no evidence of a shunt. Aorta The aorta is normal by two-dimensional, color flow and Doppler interrogation. Mitral Valve [id number] mitral regurgitation. Mild mitral annular calcification. Aortic Valve Mild aortic valve stenosis, mean gradient 10 mmHg, DIANE 0.71 cm?. Diffuse calcification of the aortic valve. Trace to mild aortic valve regurgitation. Tricuspid Valve There is mild tricuspid valve regurgitation. Pulmonic Valve The pulmonic valve is not well visualized. There is no significant pulmonic valve regurgitation. Vessels The pulmonary artery appears normal. The inferior vena cava pulmonary and hepatic veins appear normal. Pericardium The pericardium is normal by two-dimensional imaging. There is no significant pericardial effusion. CONCLUSIONS Indication: SOB r/o CHF Normal LV size and function with an EF of 55 to 60%. Stage I diastolic dysfunction. Mild concentric LVH. Normal RV size and function with mildly elevated RVSP at 35 mmHg. Mild to moderate TR. Moderate AV sclerosis with mild aortic stenosis and trace to mild AI. Biatrial dilatation mild. Trace pericardial effusion. No Tamponade. MIld MAC and mild MR. Ryan Sy (Electronically Signed) Final Date: 25 August 2024 00:24
--- NOTE | 2024-08-24 11:46 | ESPR_ITS ---
<Statement entered by Yolanda Douglas MD - 08/24/24 15:03> Patient seen and examined at bedside. Patient is progressing back to her baseline, alert and oriented x 2 today. No overnight events reported except for low hemoglobin of 6.5. Night team decided to hold her heparin subcu, and will continue to hold her anticoagulation with Eliquis for her A-fib. Patient's blood pressure stable in the 120s to 130s over 50s to 70s. 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 Patient continues to have congestion, repeat chest x-ray showed much improvement in the right lung. Pending echocardiogram to assess for any worsening heart failure. Also pending 1 unit packed red blood cells, and follow-up with post H&H in the afternoon. Will continue with Mucomyst and DuoNebs every 4 as well as incentive spirometer. I discussed with and supervised the director internal control physician who took care of this patient. I personally saw and examined the patient and discussed the assessment and plan with the entire medicine team, including my attending , I agree with most of the assessment and plan as documented below Yolanda Douglas M.D. PGY-2 Disclaimer: Despite multiple revisions, due to the dictation software being used, the document bellow may not be free of grammatical errors including phonetic/typographic errors. However, this does not deter from our commitment to providing health care in the patient's best interest in mind. Documentation for date of: 08/24/24 Subjective Subjective Interval history: Patient seen today at the bedside found awake, alert, orientedx2 already back to baseline. No overnighte events reported. Vital signs stable at this time. Labs significant for Hg 6.5, will transfuse 1pRBC, aspirin and heparin on hold and will do post-transfusion H&H. On examination patient is still congested ordered CXR, Echo. Patient wants to walk around ordered Physical therapy referall. Bowel regimen optimized. Exam Vital Signs Temp Pulse Resp BP Pulse Ox O2 Del Method O2 Flow Rate 98.8 F 68 16 144/54 H 100 BiPAP 3 08/24/24 08:00 08/24/24 09:54 08/24/24 08:00 08/24/24 09:54 08/24/24 08:00 08/24/24 08:00 08/24/24 08:00 FiO2 40 03/11/25 08:00 Narrative Exam Physical Exam GENERAL: NAD, AAOx2, obese HEENT: Moist mucosa. Eyes open, symmetrical, & clear CARDIO: Heart RRR, no obvious murmurs PULM: Cough, bilateral rhonchi, congested GI: Abdomen soft, nondistended, no pain on palpation. Increased abdominal girth BSx4 SKIN/MSK/EXT: No wounds/rashes/edema/amputations, no pain on palpation. Pedal pulses present B/L Objective Labs 08/24/24 05:09 08/24/24 05:09 Labs: Laboratory Results - last 24 hr 08/22/24 08/24/24 08/24/24 15:56 05:09 07:00 WBC 7.8 RBC 3.24 L Hgb 6.5 L* Hct 22.8 L MCV 70 L MCH 20.1 L MCHC 28.5 L RDW Std Deviation 61.0 H Plt Count 292 Neut % (Auto) 65 Lymph % (Auto) 21 [place] % (Auto) 12 Eos % (Auto) 1 Baso % (Auto) 1 Neut # (Auto) 5.1 Lymph # (Auto) 1.7 [place] # (Auto) 0.9 H Eos # (Auto) 0.1 Baso # (Auto) 0.0 Immature Gran # (Auto) 0.02 H Absolute Nucleated RBC 0.00 Immature Gran % 0 Nucleated RBC % 0 Sodium 146 H Potassium 4.6 Chloride 107 Carbon Dioxide 36.0 H Anion Gap 3 L BUN 25 H Creatinine 0.6 Estim Creat Clear Calc 70.3 eGFR > 60 BUN/Creatinine Ratio 42 H Glucose 80 Calculated Osmolality 293 Calcium 9.0 Corrected Calcium 9.5 Magnesium 2.2 Total Bilirubin 0.3 AST 11 ALT < 7 L Alkaline Phosphatase 63 Total Protein 5.9 Albumin 3.4 Globulin 2.5 Albumin/Globulin Ratio 1.4 Coccidioides IgM Ab Negative Blood Type A Negative Antibody Screen NEGATIVE Crossmatch See Detail Blood Bank Wristband ID Yes ABG Interpretation ABG results: 08/22/24 08/22/24 08/22/24 03:09 07:23 09:05 ABG pH 7.19 L* 7.09 L* D 7.18 L* ABG pCO2 93 H* 110 H* D 96 H* D ABG pO2 73 L 87 69 L ABG HCO3 36 H 34 H 36 H ABG O2 Saturation 92 94 91 ABG Base Excess 6 H 3 6 H 08/22/24 13:02 ABG pH 7.27 L ABG pCO2 80 H* D ABG pO2 52 L* ABG HCO3 36 H ABG O2 Saturation 84 L ABG Base Excess 8 H Quality Measures Quality Measures none Advance care planning discussed with:: patient Assessment & Plan Assessment Current Active Medications: Generic Name Dose Route Start Last Admin Trade Name Freq PRN Reason Stop Dose Admin Acetaminophen 650 mg 08/22/24 07:58 Acetaminophen 325 Mg Tablet PO 09/21/24 07:57 Q6H PRN Fever >101.5 Acetaminophen 650 mg 08/22/24 08:04 Acetaminophen 325 Mg Tablet PO 09/21/24 08:03 Q6H PRN PAIN SCALE 1-3 (mild Albuterol/Ipratropium 3 ml 08/22/24 15:00 08/24/24 07:29 Albuterol/Ipratropium (Duoneb) Rt Kelly 3 Ml Nebu INH 09/21/24 14:59 3 ml Q4HRRT IMMANUEL Administration Amlodipine Besylate 5 mg 08/23/24 09:00 08/24/24 09:54 Amlodipine Besylate 5 Mg Tablet PO 09/22/24 08:59 5 mg QDAY IMMANUEL Administration Aspirin 81 mg 08/23/24 09:15 08/23/24 09:16 Aspirin 81 Mg Chew PO 09/22/24 09:14 81 mg QDAY IMMANUEL Administration Atorvastatin Calcium 20 mg 08/23/24 21:00 08/23/24 21:11 Atorvastatin Calcium 20 Mg Tablet PO 09/22/24 20:59 20 mg HS IMMANUEL Administration Dextrose 25 ml 08/22/24 15:07 Dextrose 50%-Water Inj 50 Ml Syringe IV 09/21/24 15:06 Q15MIN PRN BG 50-70 responsive npo pt Dextrose 50 ml 08/22/24 15:07 Dextrose 50%-Water Inj 50 Ml Syringe IV 09/21/24 15:06 Q15MIN PRN BG <50 OR BG <70 & pt unresponsive Docusate Sodium 100 mg 08/23/24 09:15 08/24/24 09:55 Docusate Sod Liqd 100 Mg/10 Ml Udc PO 09/22/24 09:14 100 mg QDAY IMMANUEL Administration Protocol Glucagon 1 mg 08/22/24 15:07 Glucagon Inj 1 Mg Vial IM Q15MIN PRN BG <70, and no IV access Heparin Sodium (Porcine) 5,000 unit 08/22/24 15:45 08/24/24 05:09 Heparin Sod Inj 5000 Unit/Ml Vial SC 09/05/24 15:44 5,000 unit Q8HR IMMANUEL Administration Piperacillin Sod/Tazobactam 50 mls @ 12.5 mls/hr 08/22/24 08:14 08/24/24 05:07 Sod 3.375 gm/ Sodium Chloride IV 08/24/24 12:00 12.5 mls/hr Q8HR IMMANUEL Administration Vancomycin/Sodium Chloride 200 mls @ 120 mls/hr 08/23/24 10:00 08/24/24 09:55 Vancomycin/Ns 1 Gm Ivpb IV 08/30/24 09:59 120 mls/hr Q24H IMMANUEL Administration Piperacillin/Tazobactam/Dextrose 50 mls @ 12.5 mls/hr 08/24/24 14:00 Zosyn IV 08/29/24 08:13 Q8HR IMMANUEL Insulin Human Lispro 0 unit 08/24/24 11:30 Insulin Lispro (Admelog) 1 Unit/0.01 Ml Unit SC 09/23/24 11:29 AC IMMANUEL Protocol Ondansetron HCl 4 mg 08/22/24 07:58 Ondansetron Inj 2 Mg/Ml Inj 2 Ml IV 09/21/24 07:57 Q6H PRN NAUSEA OR VOMITING Protocol Pantoprazole Sodium 40 mg 08/22/24 09:00 08/24/24 09:55 Pantoprazole Inj 40 Mg Vial IVP 09/21/24 08:59 40 mg QDAY [facility] Administration Pharmacy Consult 1 each 08/22/24 09:00 Vancomycin Pharmacy To Dose 1 Each Each IV 09/21/24 08:59 QDAY PRN PROTOCOL Sennosides 1 tab 08/22/24 09:00 08/24/24 09:55 Senna Tablet PO 09/21/24 08:59 1 tab QDAY [facility] Administration Protocol Plan 84-year-old male with past medical history of hypertension, paroxysmal atrial fibrillation, asthma/COPD, diabetes, depression was brought to the ER due to low oxygen saturation. Per report baseline mental status is AAOx2. On examination patient is nonverbal eyes closed does not respond to verbal stimuli. Opens eyes to very aggressive sternal rub. Initial ABG shows very significant acidosis. Patient was placed on BiPAP in the ED. #Acute hypoxic respiratory failure likely secondary to community-acquired pneumonia #Right pleural effusion #Sepsis secondary to pneumonia Patient was brought to the ER from SNF due to apparent low oxygen saturation On examination patient is nonverbal does not open eyes or respond to various stimuli However patient is protecting airway Initial ABGs showed pH 7.09, CO2 110, bicarb 34, O2 87 Subsequent ABGs have been improving latest 1 showing pH 7.27, CO2 80 On admission patient presented with SIRS 2/4 leukocytosis, tachypnea, Chest x-ray shows bilateral pneumonia Chest abdomen pelvis CT shows Bilateral pneumonia, extensive in the right lung, Moderate right pleural effusion qSOFA: 2, altered mental status, tachypnea 500 NS bolus given Blood cultures negative in 48 hours, UCx negative RSV negative, flu COVID-negative, Cocci negative ? Chest physiotherapy ? DuoNebs every 4 hours ? BiPAP ? On vancomycin ? On Zosyn #Acute encephalopathy-resolved Per report patient's baseline mental status is AAO x 2 However patient is barely arousable to various stimuli is currently AAO x 0 during admission Likely secondary to acute infection currently back to baseline AAOx2 #Microcytic anemia MCV 70, admission Hg 6.8 current Hg 6.5 Consent obtained from [facility] for blood transfusions - monitor H&H - heparin and aspirin on hold - Trasfuse 1pRBC #Hypertension Will resume antihypertensives as tolerated - on amlodipine 5mg qday #Paroxysmal A-fib Per chart review patient has history of atrial fibrillation On EMR no antiarrhythmics noted or rate control agents Per chart review patient is taking Eliquis 5 mg p.o. twice daily However hemoglobin has dropped by 1 g current on sinus rhythm ? Hold anticoagulation at this time #Diabetes mellitus Last A1c 6.7 from 2020 A1c was ordered however was probably sent out ? SSI ? Hypoglycemia protocol in place Case discussed with my senior Dr. Douglas PGY-[address] Alma Begum MD PGY-1 Disposition: Telemetry Fluids: None Feeding: Carb consistent Thrombo prophylaxis: Heparin on hold Gastric Ulcer prophylaxis: Pantoprazole CODE STATUS: DNR Attending Provider Attestation/Addendum I, Natalia Marquez, DO, attest that I was physically present for the almeida portions of the service and evaluated the patient with the resident and I reviewed and discussed the case with the resident and agree with the resident's findings and plans of care as documented above Patient seen and evaluated this AM. She is much more alert today. She is currently on 6L/oxymask and has no complaints. B/l Lung cruz are much clearer today. Hgb noted to be 6.5. Patient has a history of iron deficiency anemia and recently underwent colonoscopy and endoscopy in May. Patient was found to have esophagitis, gastritis and hemorrhoids. Will transfuse 1 unit of pRBCs, no signs of active bleeding noted. She is otherwise hemodynamically stable. Will start on iron supplementation. Will also start on bowel regimen. Will continue to titrate O2 as tolerated. If patient remains stable, anticipate DC within next 24-48h
[2024-08-24 11:57] LABS: Cocci Serology, IgG Negative (Negative)
--- NOTE | 2024-08-24 13:19 | PC.PT ---
Chart reviewed, Patient was bed bound and is a LTC resident at the local SNF. Patient is at her PLOF.
[2024-08-24] MEDS: PIPER/TAZO 3.375 GM PREMIX 50 ML IV ×2 (13:21→21:32)
[2024-08-24] MEDS: ACETYLCYSTEINE SOL 20% 4 ML NEBU 3 ML INH ×3 (16:50→22:40)
[2024-08-24] MEDS: POLYETHYLENE GLYCOL 17 GM PACKET PO (17:51)
[2024-08-24] MEDS: IRON SUCROS CPLX INJ 200 MG in SODIUM CHLORIDE 0.9% 100 ML 220 MG IV (18:26)
[2024-08-24] MEDS: FUROSEMIDE INJ 10 MG/ML 4ML VIAL 40 MG IVP (18:33)
[2024-08-24 19:01] LABS: Hematocrit 26.5 % (36.0-46.0); Hemoglobin 7.7 g/dL (12.0-16.0)
[2024-08-24] MEDS: ATORVASTATIN CALCIUM 20 MG TABLET PO (21:32)
[2024-08-25] VITALS (11 sets, daily range): BP systolic 117–147; BP diastolic 50–64; PULSE 67–99; RESP 16–27; TEMP 36.2–37.1; O2SAT 93–99; BMI 24.6
[2024-08-25] MEDS: ALBUTEROL/IPRATROPIUM (Duoneb) RT SOL 3 ML NEBU INH ×5 (03:00→18:59)
[2024-08-25] MEDS: ACETYLCYSTEINE SOL 20% 4 ML NEBU 3 ML INH ×5 (03:01→18:59)
[2024-08-25] MEDS: PIPER/TAZO 3.375 GM PREMIX 50 ML IV ×2 (05:25→14:29)
[2024-08-25 05:36] LABS: Basophils # (Auto) 0.1 Thou/mm3 (0.0-0.2); Basophils % (Auto) 1 % (0-2.5); Eosinophils # (Auto) 0.3 Thou/mm3 (0.0-0.5); Eosinophils % (Auto) 3 % (0-10); Hematocrit 27.7 % (36.0-46.0); Immature Granulocytes % (Auto) 0 % (0-0); Immature Granulocytes Auto 0.03 Thou/mm3 (0.00-0.00); Lymphocytes % (Auto) 24 % (10-50); Mean Corpuscular HGB Conc 29.2 g/dl (31.0-37.0); Mean Corpuscular Volume 72 fL (80-100); Monocytes # (Auto) 1.2 Thou/mm3 (0.0-0.8); Monocytes % (Auto) 14 % (0-12); Neutrophils % (Auto) 58 % (37-80); Nucleated Red Blood Cell % 0 /100 WBC (0); Platelet Count 307 Thou/mm3 (140-440); RDW Standard Deviation 57.1 fL (36.4-46.3); Red Blood Count 3.86 Miln/mm3 (4.00-5.20); White Blood Count 8.5 Thou/mm3 (3.6-11.0)
[2024-08-25 05:47] LABS: Hemoglobin 8.1 g/dL (12.0-16.0)
[2024-08-25 06:12] LABS: Alanine Aminotransferase < 7 U/L (10-49); Albumin, Serum 3.5 gm/dL (3.4-4.8); Albumin/Globulin Ratio 1.4 (1.2-2.2); Alkaline Phosphatase 64 U/L (46-116); Anion Gap 5 (7-16); Aspartate Amino Transferase 16 U/L (0-34); BUN/Creatinine Ratio 29 Ratio (12-20); Bilirubin,Total 0.6 mg/dL (0.3-1.2); Blood Urea Nitrogen 20 mg/dL (9-23); Calcium 8.9 mg/dL (8.3-10.6); Calcium (Corrected) 9.3 mg/dL (8.5-10.1); Carbon Dioxide 38.7 mMol/L (20.0-31.0); Chloride 99 mMol/L (98-107); Creatinine (Component) 0.7 mg/dL (0.6-1.3); Estimated Creatinine Clearance 60.3 mL/min (>60); Globulin 2.5 gm/dL (2.3-3.5); Glucose 77 mg/dL (74-106); Osmolality,Calculated 286 (275-295); Potassium 4.2 mMol/L (3.4-5.1); Sodium 143 mMol/L (136-145); eGFR > 60 See Note
[2024-08-25] MEDS: POLYETHYLENE GLYCOL 17 GM PACKET PO (09:36)
[2024-08-25] MEDS: DOCUSATE SOD LIQD 100 MG/10 ML UDC PO (09:36)
[2024-08-25] MEDS: SENNA TABLET 1 TAB PO (09:36)
[2024-08-25] MEDS: PANTOPRAZOLE INJ 40 MG VIAL IVP (09:36)
[2024-08-25] MEDS: amLODIPine BESYLATE 5 MG TABLET PO (09:36)
[2024-08-25 09:43] LABS: Vancomycin,Trough 15.4 mcg/mL (5.0-10.0)
--- NOTE | 2024-08-25 10:01 | ESDS_ITS ---
<Statement entered by Yolanda Douglas MD - 08/26/24 07:50> I discussed with and supervised the project internship physician who took care of this patient. I personally saw and examined the patient and discussed the assessment and plan with the entire medicine team, including my attending Dr. Alberts, I agree with most of the assessment and plan as documented below Yolanda Douglas M.D. PGY-2 Disclaimer: Despite multiple revisions, due to the dictation software being used, the document bellow may not be free of grammatical errors including phonetic/typographic errors. However, this does not deter from our commitment to providing health care in the patient's best interest in mind. Planned Discharge Date 08/25/24 DS: Providers Provider Date of admission: 08/22/24 08:04 Primary care physician: Ama Barrera MD Admitting Provider: Natalia Marquze DO Attending Provider on Admission: Richi Alberts MD Consults: 08/22/24 15:38 Referral Speech Therapy Stat Comment: 08/22/24 19:29 Referral Wound Care Stat Comment: Stage 1 sacrum area Attending Provider on DC: Richi Alberts MD Discharging Provider: Jared Begum MD Anticipated date of discharge: 08/25/24 DS: Diagnosis Problem List Completed Was Problem List Reviewed/Reconciled?: Yes Hospital Course Hospital Course Hospital course: 84-year-old male with past medical history of hypertension, paroxysmal atrial fibrillation, asthma/COPD, diabetes, depression was brought to the ER due to low oxygen saturation. In the ER patient was lethargic and unarousable. Patient was admitted for acute hypoxic respiratory failure and sepsis secondary to community-acquired pneumonia. During hospital stay patient was given IV fluids, started on IV broad strep spectrum antibiotics, was provided with DuoNebs and chest physiotherapy. After which patient had rapid improvement in mental status and reached her baseline. Patient also had a right pleural effusion however patient's respiratory status and mental status improved significantly with IV antibiotic therapy and the x 1 dose of diuretic, there was no need to tap pleural effusion at this time. Patient also had microcytic anemia which was monitored and required 1 PRBC transfusion and hemoglobin increased adequately. Patient also has history of hypertension for which Home medication amlodipine was resumed as taken. Patient has history of paroxysmal A-fib however during hospital stay patient was monitored via telemetry and remained in normal sinus rhythm. Patient also has diabetes mellitus for which sliding scale insulin and hypoglycemia protocol were ordered. At this time patient is medically stable for discharge. Follow up with Primary Care Provider within 1 week of discharge. Please follow up with you primary care physician in regards to your anemia. You have been prescribed antibiotic Levaquin please complete 3 more days of this medication for treatment of pne umonia. You have been prescribed trelegy and albuterol inhaler for COPD. You have prescribed iron tablets please take these medications as prescribed for your anemia. Should any symptoms recur or worsen patient is instructed to return to the ED. Problem List: #Acute hypoxic respiratory failure-resolved #Right pleural effusion-stable #Sepsis secondary to pneumonia-ruled out #Acute encephalopathy-resolved #Microcytic anemia #Hypertension #Paroxysmal A-fib #Diabetes mellitus Case discussed with my senior Dr. Douglas PGY-[address] Aristeo Begum MD PGY-1 Status at Discharge Functional status at discharge: bed bound Overall status at discharge: patient is back to baseline Time Spent with Patient Time attestation: Total time spent providing and/or coordinating discharge services: Time spent: Greater than 30 minutes Exam Vital Signs Temp Pulse Resp BP Pulse Ox O2 Del Method O2 Flow Rate 97.4 F 94 18 147/62 H 96 Nasal Cannula 2 08/25/24 08:00 08/25/24 09:36 08/25/24 08:00 08/25/24 09:36 08/25/24 08:00 08/25/24 04:00 08/25/24 07:23 FiO2 40 08/25/24 03:02 Narrative Exam Physical Exam GENERAL: NAD, AAOx2, obese HEENT: Moist mucosa. Eyes open, symmetrical, & clear CARDIO: Heart RRR, no obvious murmurs PULM: CTA B/L GI: Abdomen soft, nondistended, no pain on palpation. Increased abdominal girth BSx4 SKIN/MSK/EXT: No wounds/rashes/edema/amputations, no pain on palpation. Pedal pulses present B/L Discharge Plan Plan Patient Disposition: Xfer Skilled Nsg Fac (SNF) Disposition Comment: [facility] Plan Goals: Follow up with Primary Care Provider within 1 week of discharge Please follow up with you primary care physician in regards to your anemia You have been prescribed antibiotic Levaquin please complete 3 more days of this medication for treatment of pneumonia You have prescribed iron tablets please take these medications as prescribed for your anemia Should any symptoms recur or worsen patient is instructed to return to the ED. Prescriptions/Referrals Prescriptions/Med Rec: New levofloxacin 750 mg tablet 750 mg PO QDAY 3 Days Qty: 3 0RF ferrous gluconate 324 mg (38 mg iron) tablet 324 mg PO BID 30 Days Qty: 60 0RF Trelegy Ellipta 100-62.5-25 mcg blister with device 1 inh inhalation QDAY Qty: 28 0RF albuterol sulfate 90 mcg/actuation HFA aerosol inhaler 2 puff inhalation Q6H PRN (Reason: shortness of breath or wheezing) Qty: 6.7 0RF Continued quetiapine [Seroquel] 25 mg Tablet 25 mg PO QDAY amlodipine 5 mg Tablet 5 mg PO QDAY acetaminophen 500 mg Tablet 500 mg PO QDAY magnesium hydroxide [Milk of Magnesia] 400 mg/5 mL Suspension 30 ml PO Q72H PRN (Reason: Constipation) bisacodyl 10 mg Suppository 10 mg MO PRN PRN (Reason: Constipation) loratadine 10 mg Tablet 10 mg PO QDAY multivitamin with minerals Capsule 1 cap PO QDAY insulin glargine [Lantus Solostar U-100 Insulin] 100 unit/mL (3 mL) Insulin Pen 10 unit SUBCUT HS Rx Instructions: do not give if blood sugar less than 100 albuterol sulfate [ProAir HFA] 90 mcg/actuation HFA aerosol inhaler 1 inh inhalation Q6H PRN (Reason: shortness of breath or wheezing) metformin 500 mg tablet 500 mg PO BID polyvinyl alcohol [Artificial Tears (polyvin alc)] 1.4 % Drops 2 drp OPHTHALMIC (EYE) Q4H PRN (Reason: irritation) calcium carbonate 600 mg calcium (1,500 mg) Tablet 600 mg PO BID hydroxyzine HCl 25 mg Tablet 50 mg PO BID Rx Instructions: for itching duloxetine [Cymbalta] 30 mg Capsule,Delayed Release(Dr/Ec) 30 mg PO BID diphenhydramine HCl [Benadryl] 25 mg Capsule 25 mg PO BID Rx Instructions: for pruritus Referrals: Ama Barrera MD [Primary Care Provider] - Patient/Caregiver Discharge Instructions Print Language: [place] Stand Alone Forms: [facility] Award Info., Patient Portal Info Letter Discharge Order Discharge Orders: Discharge (Routine); Ordered 08/25/24 Ordered By: Jared Begum Quality Discharge Quality Measures VTE prophylaxis Attestestation MD Attestation I attest that I was physically present for the evaluation, physical examination, lab and imaging review of the patient with the residents. I discussed the case with the residents and agree with the findings and plans of care as documented above. Richi Alberts MD
[2024-08-25] MEDS: VANCOMYCIN/NS 1 GM IVPB 200 ML IV (10:07)
--- NOTE | 2024-08-25 11:21 | PC.SS ---
Addendum entered by Verónica Aleman 08/25/24 13:54: SS spoke to floor nurse and pushed back transportation time. Patient will be picked up by [facility] transportation at 4p.m. Floor nurse aware Original Note: Follow up note: Patient has d/c orders for today. Patient will return to [facility]. SS updated patient's friend, David. Discussed IMM rights. Facility aware and nursing staff aware.
--- NOTE | 2024-08-25 17:26 | PC.SS ---
FARM MACHINERY ENGINE MECHANIC followed up with [facility] to inquire about status of [facility] transport scheduled for 4:00 pm. [facility] staff informed FARM MACHINERY ENGINE MECHANIC that [facility] unable to provide transport due to lack of available vehicle. [facility] unable to confirm ability to identify transport vendor for transport for this evening. FARM MACHINERY ENGINE MECHANIC to submit CANDIE to schedule ambulance transport.
--- NOTE | 2024-08-25 17:34 | PC.SS ---
Ambulance transport scheduled for 07:00 pm thaddeus. AVIATION ORDNANCE OFFICER notified SNF and bedside nurse. Transport scheduled with [place].
[2024-08-25] MEDS: IRON SUCROS CPLX INJ 200 MG in SODIUM CHLORIDE 0.9% 100 ML 220 MG IV (17:48)
--- NOTE | 2024-08-25 19:12 | PC.NURSE ---
Patient is for discharge and going back to [place]. Report was called and given to SNF nurse Sandro around 15:00 PM. Discharge packet ready, endorsed to Gillian BETTS.
== END 2024-08-25 20:00 | disposition skilled nursing facility (03) | DRG 871 ==
LOC: SERX 06:17 → SERHOLD 08:21 → S2NX 13:54
PROVIDERS: Emergency Medicine; Student in an Organized Health Care Education/Training Program; Admitting Provider Internal Medicine; Emergency Provider Emergency Medicine; PCP Hospitalist; Visit Provider Student in an Organized Health Care Education/Training Program
DX: A41.02 Sepsis due to Methicillin resistant Staphylococcus aureus (principal); G93.41 Metabolic encephalopathy; J18.9 Pneumonia, unspecified organism; J96.01 Acute respiratory failure with hypoxia; J96.02 Acute respiratory failure with hypercapnia; J44.0 Chronic obstructive pulmonary disease with (acute) lower respiratory infection; J90 Pleural effusion, not elsewhere classified; N13.2 Hydronephrosis with renal and ureteral calculous obstruction; K74.60 Unspecified cirrhosis of liver; I10 Essential (primary) hypertension; J44.9 Chronic obstructive pulmonary disease, unspecified; I48.0 Paroxysmal atrial fibrillation; D50.9 Iron deficiency anemia, unspecified; K20.90 Esophagitis, unspecified without bleeding; K29.70 Gastritis, unspecified, without bleeding; F32.A Depression, unspecified; K64.9 Unspecified hemorrhoids; E11.9 Type 2 diabetes mellitus without complications; Z99.81 Dependence on supplemental oxygen; Z66 Do not resuscitate; Z11.52 Encounter for screening for COVID-19; Z79.899 Other long term (current) drug therapy; Z88.8 Allergy status to other drugs, medicaments and biological substances; Z79.4 Long term (current) use of insulin; Z79.84 Long term (current) use of oral hypoglycemic drugs; Z90.710 Acquired absence of both cervix and uterus; Z74.01 Bed confinement status
CPT/HCPCS: 36415; 36600; 70450; 71045; 71250; 74176; 80053; 80202; 81001; 82803; 83036; 83605; 83735; 83880; 84145; 84439; 84443; 84484; 85014; 85018; 85025; 85379; 85652; 86140; 86331; 86635; 86850; 86900; 86901; 86923; 87040; 87081; 87086; 87400; 87634; 87811; 92526; 92610; 93306; 94640; 94660; 94667; A9270; J1643; J1756; J1940; J2470; J2543; J2919; J3370; J7040; J7050; P9016

== ENCOUNTER 2024-09-16 19:18 | Inpatient (IN) | payer MEDICARE, MEDICAID, SELFPAY ==
--- NOTE | 2024-09-16 20:05 | PD.EDNEURO ---
Neuro Symptoms Deficit-RME/HPI General Chief Complaint: General Adult/Misc Complain Stated Complaint: BLOOD IN STOOL Time Seen by Provider: 09/16/24 19:28 Arrival date/time: 09/16/24 19:18 RME / HPI RME / HPI Narrative: Dr. Mott?s Main ED Evaluation: 84yo female with a history of hypertension, paroxysmal atrial fibrillation, asthma/COPD, diabetes, depression BIBA from [facility] presents to the ED for a chief complaint of dark bloody stools. Per EMS, SNF staff states they noticed the patient started having dark bloody stools earlier today, so they sent her over for evaluation. Patient is confused at baseline and is unable to provide any history. Evidently, the patient is a DNR on comfort measures. Related Data Home Medications ?Medication ?Instructions ?Recorded ?Confirmed acetaminophen 500 mg tablet 500 mg PO Q8HR PRN pain (scale 07/26/21 09/17/24 score 1-3) albuterol sulfate 90 mcg/actuation 1 inh inhalation Q6H PRN shortness 07/26/21 09/17/24 aerosol inhaler (ProAir HFA) of breath or wheezing amlodipine 5 mg tablet 5 mg PO QDAY 07/26/21 09/17/24 bisacodyl 10 mg rectal suppository 10 mg VA PRN PRN Constipation 07/26/21 09/17/24 insulin glargine 100 unit/mL (3 10 unit subcut HS 07/26/21 09/17/24 mL) subcutaneous pen (Lantus Solostar U-100 Insulin) loratadine 10 mg tablet 10 mg PO QDAY 07/26/21 09/17/24 magnesium hydroxide 400 mg/5 mL 30 ml PO Q72H PRN Constipation 07/26/21 09/17/24 oral suspension (Milk of Magnesia) multivitamin with minerals 1 cap PO QDAY 07/26/21 09/17/24 quetiapine 25 mg tablet (Seroquel) 25 mg PO QDAY 07/26/21 07/31/22 metformin 500 mg tablet 500 mg PO BID 05/20/22 09/17/24 calcium carbonate 600 mg PO BID 07/31/22 09/17/24 duloxetine 30 mg capsule,delayed 30 mg PO BID 07/31/22 07/31/22 release (Cymbalta) hydroxyzine HCl 25 mg tablet 50 mg PO BID 07/31/22 09/17/24 polyvinyl alcohol 1.4 % eye drops 2 drp ophthalmic (eye) Q4H PRN 07/31/22 09/17/24 (Artificial Tears (polyvinyl irritation alcohol)) diphenhydramine HCl 25 mg capsule 25 mg PO BID 06/08/24 09/17/24 (Benadryl) atorvastatin 20 mg tablet 20 mg PO QPM 09/17/24 09/17/24 cholecalciferol (vitamin D3) 1,250 50,000 unit PO QWEEK 09/17/24 09/17/24 mcg (50,000 unit) capsule cyanocobalamin (vitamin B-12) 1,000 mcg PO QDAY 09/17/24 09/17/24 1,000 mcg tablet duloxetine 20 mg capsule,delayed 20 mg PO QDAY 09/17/24 09/17/24 release sprinkle (Drizalma Sprinkle) guaifenesin 100 mg/5 mL oral syrup 400 mg PO Q6H PRN cough 09/17/24 09/17/24 omeprazole 40 mg capsule,delayed 40 mg PO QDAY 09/17/24 09/17/24 release Previous Rx's ?Medication ?Instructions ?Recorded albuterol sulfate 90 mcg/actuation 2 puff inhalation Q6H PRN 08/25/24 aerosol inhaler shortness of breath or wheezing #6.7 grams ferrous gluconate 324 mg (38 mg 324 mg PO BID 1 month #60 tabs 08/25/24 iron) tablet fluticasone fur. 100 mcg-umeclid 1 inh inhalation QDAY #28 ea 08/25/24 62.5 mcg-vilant 25 mcg inhalat.powder (Trelegy Ellipta) Allergies Allergy/AdvReac Type Severity Reaction Status Date / Time valsartan (From Diovan) Allergy Unknown Verified 09/16/24 20:45 Review of Systems Review of Systems ROS Unobtainable: other (Patient is confused at baseline and is unable to provide any history.) ED Exam Narrative Physical exam: GENERAL APPEARANCE: alert and oriented x 4, well-developed, well-nourished, no acute distress VITALS: All vitals were reviewed and the pulse ox is % on room air, which is normal according to my interpretation. HEENT: Normocephalic, atraumatic; pupils equal, round, reactive to light; EOMI; mucous membranes pink, moist; oropharynx clear NECK: Supple LUNGS: CTABL; no wheezes, no rales, no rhonchi HEART: Regular rate, regular rhythm; normal S1, S2; no murmurs ABDOMEN: non distended; normal BS; soft, no tenderness, no guarding, no rebound; no masses, no organomegaly, no hernia BACK: no CVA tenderness EXTREMITIES: atraumatic; no edema NEUROLOGIC: awake; alert and oriented x4; cranial nerves II-XII grossly intact; no focal sensory or motor deficits PSYCHIATRIC: appropriate mood and affect SKIN: warm, dry, normal color; no rashes Course Quality Measures none Orders Category Date Time Status Philosophy Lecturer Q4H START 00 Care 09/16/24 20:41 Active Continuous Pulse Oximetry STAT Care 09/16/24 20:41 Completed EKG (ED ONLY) *Do not use* NOW Care 09/17/24 01:16 Completed Insert IV STAT Care 09/16/24 20:41 Completed Orthostatic Vitals NOW Care 09/17/24 01:16 Active EKG (ED Only) Stat Exams 09/17/24 01:16 Draft XR chest 1V portable Stat Exams 09/17/24 01:16 Completed CBC Stat Lab 09/16/24 21:00 Completed Comprehensive Metabolic Panel Stat Lab 09/16/24 21:00 Completed Magnesium Stat Lab 09/16/24 21:00 Completed Occult Blood, Stool (LAB) Stat Lab 09/17/24 01:32 Completed Partial Thromboplastin Time Stat Lab 09/16/24 21:00 Completed Prothrombin Time with INR Stat Lab 09/16/24 21:00 Completed Troponin I Stat Lab 09/16/24 21:00 Completed Vital Signs Vital signs: Vital Signs Temperature 98.4 F 09/16/24 21:20 Pulse Rate 67 09/16/24 21:20 Respiratory Rate 18 09/16/24 21:20 Blood Pressure 165/53 H 09/16/24 21:20 Pulse Oximetry (%) 96 09/16/24 21:20 Oxygen Delivery Method Room Air 09/16/24 21:20 Neuro Symptoms / Deficit MDM Narrative MDM Narrative:: Scribe Attestation: 09/16/24 Dejah Gurrola am scribing for and in the presence of Dr. Mott. 0052: Spoke with SNF staff, they state the patient's RP requested the patient to be sent over for evaluation due to having a history of GI bleed. 0055: Attempted to reach Maile Thayer, the patient's RP, regarding the patient's care without any success. Patient is guaiac positive. 0141: Discussed case with Dr. Guido, attending Dr. Alberts from Hospitalist service regarding admission. Discussed patients ED course, exam findings, labs, and radiology results. The Hospitalist will evaluate the patient for evaluation. Patient data External records reviewed:: [facility] previous records (Per chart review, patient was admitted here on 08/22/24 for pneumonia.) and Long-Term records (Per [facility], patient is a DNR with comfort measures.) Clinical information provided by:: EMS Social determinants that could affect healthcare access:: housing (SNF resident) Patient has the following chronic illnesses:: hypertension, paroxysmal atrial fibrillation, asthma/COPD, diabetes, depression How is presenting disease/condition affected by chronic disease/condition?: uneffected by Evaluation data The following diagnostics were reviewed and interpreted by me:: lab results Lab and/or radiology exams considered but not ordered:: none Interpretation Summary: WBC count is normal, HnH is 9.4/32.3 (improved from 08/25/24, at which time it was 8.1/27.7), Platelets are normal, PT and INR are normal, PTT is normal, CMP is normal, Troponin is normal, according to my interpretation. Medications / Prescriptions Medications or Prescriptions considered but not ordered:: none Medication administrations:: Medication Administration History Acetaminophen (Acetaminophen 325 Mg Tablet) 650 mg PO Q6HR PRN PRN Reason: Fever >101.5 Stop: 10/17/24 02:27 Acetaminophen (Acetaminophen 325 Mg Tablet) 650 mg PO Q6HR PRN PRN Reason: PAIN SCALE 1-3 (mild Stop: 10/17/24 02:27 Albuterol/Ipratropium (Albuterol/Ipratropium (Duoneb) Rt Kelly 3 Ml Nebu) 3 ml INH Q4HRRT PRN PRN Reason: SHORTNESS OF BREATH OR WHEEZE Stop: 10/17/24 10:59 Atorvastatin Calcium (Atorvastatin Calcium 20 Mg Tablet) 20 mg PO QPM IMMANUEL Stop: 10/17/24 20:59 Last Admin: 09/17/24 20:11 Dose: 20 mg Documented By: Duloxetine HCl (Duloxetine Hcl 20 Mg Capsule) 20 mg PO QDAY [facility] Stop: 10/18/24 08:59 Ondansetron HCl (Ondansetron Inj 2 Mg/Ml Inj 2 Ml) 4 mg IV Q6HR PRN; Protocol PRN Reason: NAUSEA OR VOMITING Stop: 10/17/24 02:27 Pantoprazole Sodium (Pantoprazole Inj 40 Mg Vial) 40 mg IVP BID [facility] Stop: 10/17/24 02:44 Last Admin: 09/17/24 20:11 Dose: 40 mg Documented By: Admin: 09/17/24 08:04 Dose: 40 mg Documented By: Admin: 09/17/24 03:23 Dose: 40 mg Documented By: CVL Discontinued Medications Dextrose (Dextrose 50%-Water Inj 50 Ml Syringe) 25 ml IV Q15MIN PRN PRN Reason: BG 50-70 responsive npo pt Stop: 10/17/24 02:33 Dextrose (Dextrose 50%-Water Inj 50 Ml Syringe) 50 ml IV Q15MIN PRN PRN Reason: BG <50 OR BG <70 & pt unresponsive Stop: 10/17/24 02:33 Diphenhydramine HCl (Diphenhydramine Inj 50 Mg/Ml Vial) Confirm Administered Dose 50 mg .ROUTE .STK-MED ONE Stop: 09/17/24 15:36 Fentanyl Citrate (Fentanyl Cit Inj 50 Mcg/Ml Amp 2ml) Confirm Administered Dose 100 mcg .ROUTE .STK-MED ONE Stop: 09/17/24 15:36 Fentanyl Citrate (Fentanyl Cit Inj 50 Mcg/Ml Amp 2ml) 50 mcg IV Q2M PRN PRN Reason: MODERATE SEDATION Stop: 09/17/24 17:35 Glucagon (Glucagon Inj 1 Mg Vial) 1 mg IM Q15MIN PRN PRN Reason: BG <70, and no IV access Insulin Human Lispro (Insulin Lispro (Admelog) 1 Unit/0.01 Ml Unit) 0 unit SC Q6H [facility]; Protocol Stop: 10/17/24 05:59 Last Admin: 09/17/24 06:09 Dose: Not Given Documented By: YEN Non-Admin Reason: Per Protocol Midazolam HCl (Midazolam Inj 1 Mg/Ml Vial 2 Ml) Confirm Administered Dose 4 mg .ROUTE .STK-MED ONE Stop: 09/17/24 15:36 Midazolam HCl (Midazolam Inj 1 Mg/Ml Vial 2 Ml) 2 mg IV Q2M PRN PRN Reason: Moderate Sedation Stop: 09/17/24 17:35 see above, if any Consultations Consultation(s) initiated? (list below): Yes Consultation #1 (Physician, Specialty, Details): See MDM narrative. Diagnosis Neuro Differential Diagnosis: other (AV malformation, PUD, gastritis, diverticulosis) Most likely diagnosis given after review of the tests above:: see clinical impression below Admission Indicated Admission indicated?: indicated Admission Request Was there a request for admission?: Yes Admission Attestation Admission request attestation: Discussed case with [] from Hospitalist service regarding admission. Discussed patients ED course, exam findings, labs, and radiology results. The Hospitalist [agrees,declines] to accept the patient for admission. Disposition Plan Disposition Plan: Admit Discharge Plan Plan Patient Disposition: Admit Acute Care w/in Hospital Problem List Clinical Impression: GI bleed
[2024-09-16 21:12] LABS: Basophils % (Auto) 1 % (0-2.5); Eosinophils # (Auto) 0.2 Thou/mm3 (0.0-0.5); Eosinophils % (Auto) 4 % (0-10); Hematocrit 32.3 % (36.0-46.0); Hemoglobin 9.4 g/dL (12.0-16.0); Immature Granulocytes % (Auto) 0 % (0-0); Immature Granulocytes Auto 0.02 Thou/mm3 (0.00-0.00); Lymphocytes # (Auto) 1.4 Thou/mm3 (1.0-4.8); Lymphocytes % (Auto) 27 % (10-50); Mean Corpuscular HGB Conc 29.1 g/dl (31.0-37.0); Mean Corpuscular Hemoglobin 23.4 pg (25.0-35.0); Mean Corpuscular Volume 80 fL (80-100); Monocytes # (Auto) 0.8 Thou/mm3 (0.0-0.8); Monocytes % (Auto) 16 % (0-12); Neutrophils # (Auto) 2.7 Thou/mm3 (1.8-7.7); Neutrophils % (Auto) 53 % (37-80); Nucleated Red Blood Cell % 0 /100 WBC (0); Platelet Count 291 Thou/mm3 (140-440); RDW Standard Deviation 79.4 fL (36.4-46.3); Red Blood Count 4.02 Miln/mm3 (4.00-5.20); White Blood Count 5.1 Thou/mm3 (3.6-11.0)
[2024-09-16 21:20] VITALS: BP 165/53; PULSE 67; RESP 18; TEMP 36.9; O2SAT 96
[2024-09-16 21:21] VITALS: PULSE 67
[2024-09-16 21:25] LABS: INR 1.1 (0.9-1.3); Partial Thromboplastin Time 26.2 Seconds (22.0-36.0); Prothrombin Time 11.5 Seconds (9.0-12.2)
[2024-09-16 21:39] LABS: Alanine Aminotransferase < 7 U/L (10-49); Albumin, Serum 3.4 gm/dL (3.4-4.8); Albumin/Globulin Ratio 1.3 (1.2-2.2); Alkaline Phosphatase 86 U/L (46-116); Anion Gap 6 (7-16); Aspartate Amino Transferase 14 U/L (0-34); BUN/Creatinine Ratio 30 Ratio (12-20); Bilirubin,Total 0.2 mg/dL (0.3-1.2); Blood Urea Nitrogen 18 mg/dL (9-23); Calcium 8.8 mg/dL (8.3-10.6); Calcium (Corrected) 9.3 mg/dL (8.5-10.1); Carbon Dioxide 35.5 mMol/L (20.0-31.0); Chloride 102 mMol/L (98-107); Creatinine (Component) 0.6 mg/dL (0.6-1.3); Globulin 2.7 gm/dL (2.3-3.5); Glucose 120 mg/dL (74-106); Magnesium 1.9 mg/dL (1.6-2.6); Osmolality,Calculated 287 (275-295); Potassium 4.3 mMol/L (3.4-5.1); Sodium 143 mMol/L (136-145); Total Protein 6.1 gm/dL (5.7-8.2); Troponin I < 0.002 ng/mL (0.0-0.045); eGFR > 60 See Note
[2024-09-17] VITALS (13 sets, daily range): BP systolic 137–160; BP diastolic 7–102; PULSE 66–143; RESP 12–19; TEMP 36.4–37.2; O2SAT 91–98
--- NOTE | 2024-09-17 01:16 | EKG_ITS ---
[facility] Test Date: 2024-09-17 Pat Name: ROD PICKETT Department: Room: - Gender: Female Direct Selling Counselor: : 1940 Requested By: Han Cardoso Order Number: [id number] Reading MD: Han Cardoso Measurements Intervals [place] Rate: 66 P: -29 DE: 273 QRS: -62 QRSD: 156 T: 21 QT: 441 QTc: 465 Interpretive Statements SINUS RHYTHM WITH FIRST DEGREE AV BLOCK RIGHT BUNDLE BRANCH BLOCK [120+ ms QRS DURATION, UPRIGHT V1, 40+ ms S IN I/aVL/V4/V5/V6] LEFT ANTERIOR FASCICULAR BLOCK [QRS AXIS <= -45, QR IN I, RS IN II] POSSIBLE LEFT VENTRICULAR HYPERTROPHY [VOLTAGE CRITERIA PLUS LAE OR QRS WIDENING] Compared to ECG 07/31/2022 14:40:13 First degree AV block now present Ectopic atrial rhythm no longer present /store/S0/[id number]/[id number].pdf
--- NOTE | 2024-09-17 01:16 | XR_ITS ---
Examination: AP chest single view Technique one AP portable semiupright chest single view Exam date and time: September 17, 2024 0133 hours Comparison August 24, 2024 INDICATIONS: Gastrointestinal bleeding today. FINDINGS: Atelectasis at the right lung base Mild to moderate elevation right hemidiaphragm Normal heart size No pulmonary edema IMPRESSION: Atelectasis at the right lung base
[2024-09-17 01:58] LABS: OBS Developer Lot # 1-24 551749; OBS Performed By LEECE; OBS QC OK? Yes; Occult Blood, Stool Positive (Negative)
--- NOTE | 2024-09-17 02:26 | PD.RESHP ---
Documentation for date of: 09/17/24 HPI History of Present Illness History of present illness: The patient is an 84-year-old female with significant past medical history of hypertension, paroxysmal A-fib, 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 Patient is a poor historian and history was obtained from chart review and interviewing point of contact center team lead, David by phone. As per SNF staff she started having dark bloody stool starting this morning and was sent to emergency department. She denies any headache, lightheadedness, chest pain, SOB, abdominal pain, any changes in bladder habit or leg swelling. She denies any fever or chills, nausea or vomiting. Earlier, patient was on comfort measures, but David reported that she has had discussion with the patient earlier, that she would like to undergo any procedures that could fix her problems. David also reported that she would wish to proceed with EGD or colonoscopy if needed. In the ED her vitals were significant for blood pressure 165/53, saturating 96% on room air. Labs are significant for hemoglobin of 9.4, MCV 80, chemistry panel revealed bicarb 35.5, blood sugar 120, total bilirubin 0.2, and stool occult blood positive. EKG revealed sinus rhythm with first-degree AV block, CXR WNL, as interpreted by me. PMH: As mentioned above SHX: Hysterectomy and right breast lumpectomy Social history: Unable to obtain due to patient's dementia Family history: Unable to obtain due to patient's dementia Medications: To be reconciled Review of Systems Review of Systems Systems Reviewed: All systems reviewed, normal except as documented Exam Vital Signs Temp Pulse Resp BP Pulse Ox O2 Del Method O2 Flow Rate 99.0 F 67 18 142/59 H 97 Nasal Cannula 2 09/17/24 01:41 09/17/24 01:41 09/17/24 01:41 09/17/24 01:41 09/17/24 01:41 09/17/24 01:41 09/17/24 01:41 Narrative Exam General: No acute distress, Alert and Oriented x 3 HEENT: Moist mucous membranes, oropharynx clear Neck: Supple, No masses, No JVD CVS: S1S2 Regular rate and rhythm, No murmurs, rubs or gallops Lungs: Clear to auscultation with no accessory use, no wheeze no rhonchi Abd: Soft, NT/ND, +BS, no organomegaly Ext: No edema, warm and well perfused Skin: No rash Psych: Appropriate mood and affect Results: Labs 09/17/24 04:15 09/17/24 04:15 Labs: Short CBC 09/16/24 Range/Units 21:00 WBC 5.1 (3.6-11.0) Thou/mm3 Hgb 9.4 L (12.0-16.0) g/dL Hct 32.3 L (36.0-46.0) % Plt Count 291 (140-440) Thou/mm3 BMP 09/16/24 21:00 Sodium 143 Potassium 4.3 Chloride 102 Carbon Dioxide 35.5 H BUN 18 Creatinine 0.6 Glucose 120 H Calcium 8.8 Cardiac Enzymes 09/16/24 Range/Units 21:00 Troponin I < 0.002 (0.0-0.045) ng/mL Liver Function 09/16/24 Range/Units 21:00 Total Bilirubin 0.2 L (0.3-1.2) mg/dL AST 14 (0-34) U/L ALT < 7 L (10-49) U/L Alkaline Phosphatase 86 (46-116) U/L Albumin 3.4 (3.4-4.8) gm/dL Quality Measures Quality Measures none Advance care planning discussed with:: patient and other (Point of contact) Medications Home Medications and Allergies Home Medications ?Medication ?Instructions ?Recorded ?Confirmed ?Type acetaminophen 500 mg tablet 500 mg PO Q8HR PRN pain (scale 07/26/21 09/17/24 History score 1-3) albuterol sulfate 90 mcg/actuation 1 inh inhalation Q6H PRN shortness 07/26/21 09/17/24 History aerosol inhaler (ProAir HFA) of breath or wheezing amlodipine 5 mg tablet 5 mg PO QDAY 07/26/21 09/17/24 History bisacodyl 10 mg rectal suppository 10 mg ND PRN PRN Constipation 07/26/21 09/17/24 History insulin glargine 100 unit/mL (3 10 unit subcut HS 07/26/21 09/17/24 History mL) subcutaneous pen (Lantus Solostar U-100 Insulin) loratadine 10 mg tablet 10 mg PO QDAY 07/26/21 09/17/24 History magnesium hydroxide 400 mg/5 mL 30 ml PO Q72H PRN Constipation 07/26/21 09/17/24 History oral suspension (Milk of Magnesia) multivitamin with minerals 1 cap PO QDAY 07/26/21 09/17/24 History quetiapine 25 mg tablet (Seroquel) 25 mg PO QDAY 07/26/21 07/31/22 History metformin 500 mg tablet 500 mg PO BID 05/20/22 09/17/24 History calcium carbonate 600 mg PO BID 07/31/22 09/17/24 History duloxetine 30 mg capsule,delayed 30 mg PO BID 07/31/22 07/31/22 History release (Cymbalta) hydroxyzine HCl 25 mg tablet 50 mg PO BID 07/31/22 09/17/24 History polyvinyl alcohol 1.4 % eye drops 2 drp ophthalmic (eye) Q4H PRN 07/31/22 09/17/24 History (Artificial Tears (polyvinyl irritation alcohol)) diphenhydramine HCl 25 mg capsule 25 mg PO BID 06/08/24 09/17/24 History (Benadryl) atorvastatin 20 mg tablet 20 mg PO QPM 09/17/24 09/17/24 History cholecalciferol (vitamin D3) 1,250 50,000 unit PO QWEEK 09/17/24 09/17/24 History mcg (50,000 unit) capsule cyanocobalamin (vitamin B-12) 1,000 mcg PO QDAY 09/17/24 09/17/24 History 1,000 mcg tablet duloxetine 20 mg capsule,delayed 20 mg PO QDAY 09/17/24 09/17/24 History release sprinkle (Drizalma Sprinkle) guaifenesin 100 mg/5 mL oral syrup 400 mg PO Q6H PRN cough 09/17/24 09/17/24 History omeprazole 40 mg capsule,delayed 40 mg PO QDAY 09/17/24 09/17/24 History release Allergies Allergy/AdvReac Type Severity Reaction Status Date / Time valsartan (From Diovan) Allergy Unknown Verified 09/16/24 20:45 Assessment & Plan Plan The patient is an 84-year-old female with significant past medical history of hypertension, paroxysmal A-fib, 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 Patient admitted to telemetry unit for further management of acute GI bleed. #Acute GI bleed #Microcytic anemia DDx: UTI versus LGI bleed Patient presented with concern regarding dark bloody stools, stool occult blood positive Presented with hemoglobin of 9.4, MCV 80 -Started on pantoprazole 40 Mg IV twice daily - GI Dr. Kraft consulted, appreciate recommendations - Monitor hemoglobin and hematocrit, transfuse if hemoglobin less than 7 - Daily a.m. labs for CBC, CMP and electrolytes #Diabetes mellitus type 2 Hemoglobin A1c was 4.7 - Continue to monitor blood sugar daily #Primary hypertension Presented with blood pressure of 165/53 that improved to 141/70 - Holding antihypertensive in the setting of acute GI bleed - May consider adding home medications after reconciliation #Asthma/COPD Patient on home oxygen 2 L - On 2 L NC #Depression #Dementia - Reconcile home medications #Paroxysmal A-fib EKG was significant for sinus rhythm with first-degree AV block - No anticoagulation in the setting of acute GI bleed Hospital maintenance: Dispo: Patient admitted to telemetry unit for further management of acute GI bleed DVT prophylaxis: SCDs Diet: N.p.o. CODE STATUS: DNR The patient's management plan was discussed with my attending physician MD Sean Guidry MD, PGY2 Attending Provider Attestation/Addendum I attest that I was physically present for the evaluation, physical examination, lab and imaging review of the patient with the residents. I discussed the case with the residents and agree with the findings and plans of care as documented above. Patient is 84 years old female with past medical history of hypertension, paroxysmal A-fib, asthma/COPD on home oxygen, diabetes, depression and dementia who presented with dark/bloody stool. In the ED, blood pressure was 165/53. Lab results were significant for hemoglobin of 9.4, bicarbonate 35.5. Stool occult blood was positive. We will admit the patient for management of acute GI bleed and blood loss anemia. Started patient on pantoprazole IV, bowel rest. We will obtain GI consult and continue to monitor her hemoglobin level. Richi Alberts MD
[2024-09-17] MEDS: PANTOPRAZOLE INJ 40 MG VIAL IVP ×3 (03:23→20:11)
[2024-09-17 05:08] LABS: Basophils % (Auto) 1 % (0-2.5); Eosinophils # (Auto) 0.3 Thou/mm3 (0.0-0.5); Eosinophils % (Auto) 5 % (0-10); Hematocrit 33.9 % (36.0-46.0); Immature Granulocytes % (Auto) 1 % (0-0); Immature Granulocytes Auto 0.03 Thou/mm3 (0.00-0.00); Lymphocytes # (Auto) 1.3 Thou/mm3 (1.0-4.8); Lymphocytes % (Auto) 25 % (10-50); Mean Corpuscular HGB Conc 29.5 g/dl (31.0-37.0); Mean Corpuscular Hemoglobin 23.4 pg (25.0-35.0); Mean Corpuscular Volume 79 fL (80-100); Monocytes # (Auto) 0.8 Thou/mm3 (0.0-0.8); Monocytes % (Auto) 15 % (0-12); Neutrophils # (Auto) 2.9 Thou/mm3 (1.8-7.7); Neutrophils % (Auto) 54 % (37-80); Nucleated Red Blood Cell % 0 /100 WBC (0); Platelet Count 299 Thou/mm3 (140-440); RDW Standard Deviation 78.4 fL (36.4-46.3); Red Blood Count 4.28 Miln/mm3 (4.00-5.20); White Blood Count 5.4 Thou/mm3 (3.6-11.0)
[2024-09-17 05:25] LABS: Glucose Estimated Average 88 mg/dL (80-131); Hemoglobin A1C 4.7 % Hgb (4.8-6.0)
[2024-09-17 05:50] LABS: Alanine Aminotransferase < 7 U/L (10-49); Albumin, Serum 3.7 gm/dL (3.4-4.8); Albumin/Globulin Ratio 1.3 (1.2-2.2); Alkaline Phosphatase 90 U/L (46-116); Anion Gap 5 (7-16); Aspartate Amino Transferase 14 U/L (0-34); BUN/Creatinine Ratio 32 Ratio (12-20); Bilirubin,Total 0.2 mg/dL (0.3-1.2); Blood Urea Nitrogen 19 mg/dL (9-23); Calcium 9.2 mg/dL (8.3-10.6); Calcium (Corrected) 9.4 mg/dL (8.5-10.1); Carbon Dioxide 36.1 mMol/L (20.0-31.0); Cardiac Risk Estimate 2.8 RATIO (3.7-5.6); Chloride 103 mMol/L (98-107); Cholesterol 132 mg/dL (132-200); Creatinine (Component) 0.6 mg/dL (0.6-1.3); Globulin 2.8 gm/dL (2.3-3.5); Glucose 97 mg/dL (74-106); HDL Cholesterol 47 mg/dL (40-60); LDL Cholesterol,Calculated 65 mg/dL (0-130); Magnesium 1.9 mg/dL (1.6-2.6); Osmolality,Calculated 289 (275-295); Potassium 4.9 mMol/L (3.4-5.1); Sodium 144 mMol/L (136-145); Thyroid Stimulating Hormone 9.73 uIU/mL (0.55-4.78); Total Protein 6.5 gm/dL (5.7-8.2); Triglycerides 102 mg/dL (30-150); eGFR > 60 See Note
--- NOTE | 2024-09-17 09:31 | PC.SS ---
Follow up note: EGD is pending. Possible Colonoscopy.
[2024-09-17 09:36] LABS: Free T4 (Free Thyroxine) 1.02 ng/dL (0.89-1.76)
--- NOTE | 2024-09-17 12:34 | ESPR_ITS ---
<Statement entered by Flavio Benavidez MD - 09/17/24 14:16> I discussed with and supervised the machine learning intern physician involved in the care of this patient. Patient assessment and plan was discussed with entire medicine team, including my attending. I agree with the assessment and plan as documented by machine learning intern doctor. Patient care was discussed with my attending physician Dr. Orlando Benavidez, PGY-2 Documentation for date of: 09/17/24 Subjective Subjective Interval history: Patient seen and examined at bedside. Labs and vitals reviewed. Patient did have an episode of bloody bowel movement overnight postadmission with bright red blood. Patient did have GI bleed workup done in May 2020 for had EGD and colonoscopy done. GI consulted, recommended to keep patient n.p.o. patient scheduled for EGD later today. Patient does have microcytic anemia at baseline. TSH elevated 9.73, free T4 within normal limits 1.02. Exam Vital Signs Temp Pulse Resp BP Pulse Ox O2 Del Method O2 Flow Rate 97.6 F 81 16 157/58 H 97 Nasal Cannula 1 09/17/24 12:00 09/17/24 12:00 09/17/24 12:00 09/17/24 12:00 09/17/24 12:00 09/17/24 12:09/17/24 12:00 Narrative Exam Physical Exam General: Awake and in no acute distress. Conversational and non-toxic appearing. HEENT: Normocephalic, atraumatic, mucous membranes moist. Heart: Regular rate and rhythm, no murmurs. Lungs: Clear to auscultation with no wheezing or crackles. Abdomen: Soft, nondistended, minimal tenderness RUQ and LLQ, positive bowel sounds. ?No guarding or rebound tenderness. Neurologic: Alert and oriented x3, no gross neurological deficit, and patient able to move all 4 extremities. Extremities: No edema. Skin: No rash or ecchymoses. Objective Labs 09/17/24 04:15 09/17/24 04:15 Labs: Laboratory Results - last 24 hr 09/16/24 09/17/24 09/17/24 21:00 01:32 04:15 WBC 5.1 5.4 RBC 4.02 4.28 Hgb 9.4 L 10.0 L Hct 32.3 L 33.9 L MCV 80 79 L MCH 23.4 L 23.4 L MCHC 29.1 L 29.5 L RDW Std Deviation 79.4 H 78.4 H Plt Count 291 299 Neut % (Auto) 53 54 Lymph % (Auto) 27 25 [place] % (Auto) 16 H 15 H Eos % (Auto) 4 5 Baso % (Auto) 1 1 Neut # (Auto) 2.7 2.9 Lymph # (Auto) 1.4 1.3 [place] # (Auto) 0.8 0.8 Eos # (Auto) 0.2 0.3 Baso # (Auto) 0.0 0.0 Immature Gran # (Auto) 0.02 H 0.03 H Absolute Nucleated RBC 0.00 0.00 Immature Gran % 0 1 H Nucleated RBC % 0 0 PT 11.5 INR 1.1 APTT 26.2 Sodium 143 144 Potassium 4.3 4.9 D Chloride 102 103 Carbon Dioxide 35.5 H 36.1 H Anion Gap 6 L 5 L BUN 18 19 Creatinine 0.6 0.6 Estim Creat Clear Calc Not Performed. Not Performed. eGFR > 60 > 60 BUN/Creatinine Ratio 30 H 32 H Glucose [address] Glu mg/dL 88 Hemoglobin A1c 4.7 L Calculated Osmolality 287 289 Calcium 8.8 9.2 Corrected Calcium 9.3 9.4 Magnesium 1.9 1.9 Total Bilirubin 0.2 L 0.2 L AST 14 14 ALT < 7 L < 7 L Alkaline Phosphatase 86 90 Troponin I < 0.002 Total Protein 6.1 6.5 Albumin 3.4 3.7 Globulin 2.7 2.8 Albumin/Globulin Ratio 1.3 1.3 Triglycerides 102 Cholesterol 132 LDL Cholesterol, Calc 65 HDL Cholesterol 47 Cholesterol/HDL Ratio 2.8 L TSH 9.73 H D Free T4 Stool Occult Blood Positive A 09/17/24 04:55 WBC RBC Hgb Hct MCV MCH MCHC RDW Std Deviation Plt Count Neut % (Auto) Lymph % (Auto) [place] % (Auto) Eos % (Auto) Baso % (Auto) Neut # (Auto) Lymph # (Auto) [place] # (Auto) Eos # (Auto) Baso # (Auto) Immature Gran # (Auto) Absolute Nucleated RBC Immature Gran % Nucleated RBC % PT INR APTT Sodium Potassium Chloride Carbon Dioxide Anion Gap BUN Creatinine Estim Creat Clear Calc eGFR BUN/Creatinine Ratio Glucose Estimated Ave Glu mg/dL Hemoglobin A1c Calculated Osmolality Calcium Corrected Calcium Magnesium Total Bilirubin AST ALT Alkaline Phosphatase Troponin I Total Protein Albumin Globulin Albumin/Globulin Ratio Triglycerides Cholesterol LDL Cholesterol, Calc HDL Cholesterol Cholesterol/HDL Ratio TSH Free T4 1.02 Stool Occult Blood Quality Measures Quality Measures none Advance care planning discussed with:: patient Assessment & Plan Assessment Current Active Medications: Generic Name Dose Route Start Last Admin Trade Name Freq PRN Reason Stop Dose Admin Acetaminophen 650 mg 09/17/24 02:28 Acetaminophen 325 Mg Tablet PO 10/17/24 02:27 Q6HR PRN Fever >101.5 Acetaminophen 650 mg 09/17/24 02:28 Acetaminophen 325 Mg Tablet PO 10/17/24 02:27 Q6HR PRN PAIN SCALE 1-3 (mild Albuterol/Ipratropium 3 ml 09/17/24 08:37 Albuterol/Ipratropium (Duoneb) Rt Kelly 3 Ml Nebu INH 10/17/24 10:59 Q4HRRT PRN SHORTNESS OF BREATH OR WHEEZE Ondansetron HCl 4 mg 09/17/24 02:28 Ondansetron Inj 2 Mg/Ml Inj 2 Ml IV 10/17/24 02:27 Q6HR PRN NAUSEA OR VOMITING Protocol Pantoprazole Sodium 40 mg 09/17/24 02:45 09/17/24 08:04 Pantoprazole Inj 40 Mg Vial IVP 10/17/24 02:44 40 mg BID IMMANUEL Administration Plan Assessment and plan: Summary: The patient is an 84-year-old female with significant past medical history of hypertension, paroxysmal A-fib, 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 Patient admitted to [facility] telemetry unit for further management of acute GI bleed. #Acute GI bleed, upper vs lower #Microcytic anemia Patient presented with concern regarding dark bloody stools, stool occult blood positive Presented with hemoglobin of 9.4, MCV 80 Plan: - Continue pantoprazole 40 Mg IV twice daily - GI Dr. Kraft consulted, appreciate recommendations - Monitor hemoglobin and hematocrit, transfuse if hemoglobin less than 7 #Primary hypertension Presented with blood pressure of 165/53 that improved to 141/70 - Holding antihypertensive in the setting of acute GI bleed - May consider adding home medications after reconciliation #Diabetes mellitus type 2 Hemoglobin A1c was 4.7 - Continue to monitor blood glucose daily #Asthma/COPD Patient on home oxygen 2 L - DuoNeb as needed - On 2 L NC #Depression #Dementia -Pending med reconciliation, will resume home meds once reconciled. #Paroxysmal A-fib EKG was significant for sinus rhythm with first-degree AV block - Hold anticoagulation in the setting of acute GI bleed DVT prophylaxis: SCDs GI prophylaxis: IV Protonix Diet: N.p.o. Lines: Peripheral IV Code status: DNR/DNI Case discussed with Attending Dr. Finn and Dr. Benavidez PGY2. Constantine Nath PGY1 Disclaimer: This note was dictated by speech recognition. Minor errors in nutrition program instructor may be present due to voice recognition software.
--- NOTE | 2024-09-17 12:49 | PD.RESCONSUL ---
HPI Data of Consult Requesting Physician: Raymundo Finn MD Admitting Provider: Sean Guido MD Attending Provider: Raymundo Finn MD Primary Care Provider: Physician No Primary/Family Consult Narrative Reason for consult: Melena History of present illness: 84-year-old female with past medical history of hypertension, paroxysmal atrial fibrillation, asthma/COPD on 2-3 L of oxygen, vow-celivgo-ztobgaias type 2 diabetes, depression/dementia who presented to the ED on 09/16 with a chief complaint of dark bloody stools. Patient is a resident at a [facility] facility and states that caretakers at the facility noted that the patient had a dark bloody stool earlier that day. History taken from patient who states that she has history of ulcers and that she has been told in the past that she bleeds easily. Patient apparently had tonsillectomy when she was 3 years old and was told at that time that she was anemic. Patient denies ever looking at her stools at the facility but states that she has felt weaker than normal. Patient's friend and persons and notified [facility] bedside and corroborated the story. Patient does have recent admission in May 2020 for for similar presentation; moreover, on 06/08 upper endoscopy was completed which showed esophagitis and gastritis. During that same admission, colonoscopy was also completed on 06/13/2024 which showed hemorrhoids on perianal exam, medium mouth diverticuli in the descending colon. Of note, patient does take ferrous gluconate supplementation which has shown to cause darkening of the stool. When the patient first presented to the ED, patient was hypertensive with blood pressure 165/53, saturating 96 on room air. Labs were significant for hemoglobin of 9.4 with chronically elevated bicarb noted. EKG which was completed showed sinus rhythm with first-degree AV block and chest x-ray showed atelectasis at the right lung base. Past medical history: As stated above Surgical history: Hysterectomy and right breast lumpectomy Allergies: Valsartan Medications: As listed Family history: Patient denies any anemia, colorectal or lung cancer in the family Social history: Patient is a resident at [facility], denies alcohol, tobacco or illicit drug use ROS: All 12 systems assessed and the patient denies unless otherwise stated in HPI. cc:: cc: Raymundo Finn MD Exam Vital Signs Temp Pulse Resp BP Pulse Ox O2 Del Method O2 Flow Rate 97.6 F 81 16 157/58 H 97 Nasal Cannula 1 09/17/24 12:00 09/17/24 12:00 09/17/24 12:00 09/17/24 12:00 09/17/24 12:00 09/17/24 12:00 09/17/24 12:00 Narrative Exam Physical Exam: GENERAL: Awake, answers questions appropriately, appears stated age, frail appearing HEENT: NC/AT. Moist mucosa. PERRLA/EOMI. No conjunctival pallor noted CARDIO: Heart RRR, no obvious murmurs, no JVD. PULM: No coughing or visible SOB. Lungs CTA B/L. GI: Abdomen soft, mildly tender to palpate on the left lower quadrant compared to rest of the quadrants but no guarding or rigidity noted. [place] apparent Rectal: Perianal hemorrhoids noted with minimal evaristo blood in the rectal vault, sphincter normal SKIN/MSK/EXT: No wounds/discoloration/rashes/edema/amputations noted. +Pedal pulses present B/L. NEURO: Oriented x3, Moves extremities x4, no focal neurologic deficits noted Results Labs 09/17/24 04:15 09/17/24 04:15 Labs: Short CBC 09/16/24 09/17/24 Range/Units 21:00 04:15 WBC 5.1 5.4 (3.6-11.0) Thou/mm3 Hgb 9.4 L 10.0 L (12.0-16.0) g/dL Hct 32.3 L 33.9 L (36.0-46.0) % Plt Count 291 299 (140-440) Thou/mm3 BMP 09/16/24 09/17/24 21:00 04:15 Sodium 143 144 Potassium 4.3 4.9 D Chloride 102 103 Carbon Dioxide 35.5 H 36.1 H BUN 18 19 Creatinine 0.6 0.6 Glucose 120 H 97 Calcium 8.8 9.2 Cardiac Enzymes 09/16/24 Range/Units 21:00 Troponin I < 0.002 (0.0-0.045) ng/mL Liver Function 09/16/24 09/17/24 Range/Units 21:00 04:15 Total Bilirubin 0.2 L 0.2 L (0.3-1.2) mg/dL AST 14 14 (0-34) U/L ALT < 7 L < 7 L (10-49) U/L Alkaline Phosphatase 86 90 (46-116) U/L Albumin 3.4 3.7 (3.4-4.8) gm/dL Quality Measures Quality Measures none Advance care planning discussed with:: patient and other (Patient's close friend) Medications Home Medications and Allergies Home Medications ?Medication ?Instructions ?Recorded ?Confirmed ?Type acetaminophen 500 mg tablet 500 mg PO Q8HR PRN pain (scale 07/26/21 09/17/24 History score 1-3) albuterol sulfate 90 mcg/actuation 1 inh inhalation Q6H PRN shortness 07/26/21 09/17/24 History aerosol inhaler (ProAir HFA) of breath or wheezing amlodipine 5 mg tablet 5 mg PO QDAY 07/26/21 09/17/24 History bisacodyl 10 mg rectal suppository 10 mg AL PRN PRN Constipation 07/26/21 09/17/24 History insulin glargine 100 unit/mL (3 10 unit subcut HS 07/26/21 09/17/24 History mL) subcutaneous pen (Lantus Solostar U-100 Insulin) loratadine 10 mg tablet 10 mg PO QDAY 07/26/21 09/17/24 History magnesium hydroxide 400 mg/5 mL 30 ml PO Q72H PRN Constipation 07/26/21 09/17/24 History oral suspension (Milk of Magnesia) multivitamin with minerals 1 cap PO QDAY 07/26/21 09/17/24 History quetiapine 25 mg tablet (Seroquel) 25 mg PO QDAY 07/26/21 07/31/22 History metformin 500 mg tablet 500 mg PO BID 05/20/22 09/17/24 History calcium carbonate 600 mg PO BID 07/31/22 09/17/24 History duloxetine 30 mg capsule,delayed 30 mg PO BID 07/31/22 07/31/22 History release (Cymbalta) hydroxyzine HCl 25 mg tablet 50 mg PO BID 07/31/22 09/17/24 History polyvinyl alcohol 1.4 % eye drops 2 drp ophthalmic (eye) Q4H PRN 07/31/22 09/17/24 History (Artificial Tears (polyvinyl irritation alcohol)) diphenhydramine HCl 25 mg capsule 25 mg PO BID 06/08/24 09/17/24 History (Benadryl) atorvastatin 20 mg tablet 20 mg PO QPM 09/17/24 09/17/24 History cholecalciferol (vitamin D3) 1,250 50,000 unit PO QWEEK 09/17/24 09/17/24 History mcg (50,000 unit) capsule cyanocobalamin (vitamin B-12) 1,000 mcg PO QDAY 09/17/24 09/17/24 History 1,000 mcg tablet duloxetine 20 mg capsule,delayed 20 mg PO QDAY 09/17/24 09/17/24 History release sprinkle (Drizalma Sprinkle) guaifenesin 100 mg/5 mL oral syrup 400 mg PO Q6H PRN cough 09/17/24 09/17/24 History omeprazole 40 mg capsule,delayed 40 mg PO QDAY 09/17/24 09/17/24 History release Allergies Allergy/AdvReac Type Severity Reaction Status Date / Time valsartan (From [employer]) Allergy Unknown Verified 09/16/24 20:45 Visit Medications Acetaminophen (Acetaminophen 325 Mg Tablet) 650 mg PO Q6HR PRN PRN Reason: Fever >101.5 Stop: 10/17/24 02:27 Acetaminophen (Acetaminophen 325 Mg Tablet) 650 mg PO Q6HR PRN PRN Reason: PAIN SCALE 1-3 (mild Stop: 10/17/24 02:27 Albuterol/Ipratropium (Albuterol/Ipratropium (Duoneb) Rt Kelly 3 Ml Nebu) 3 ml INH Q4HRRT PRN PRN Reason: SHORTNESS OF BREATH OR WHEEZE Stop: 10/17/24 10:59 Ondansetron HCl (Ondansetron Inj 2 Mg/Ml Inj 2 Ml) 4 mg IV Q6HR PRN; Protocol PRN Reason: NAUSEA OR VOMITING Stop: 10/17/24 02:27 Pantoprazole Sodium (Pantoprazole Inj 40 Mg Vial) 40 mg IVP BID IMMANUEL Stop: 10/17/24 02:44 Last Admin: 09/17/24 08:04 Dose: 40 mg Discontinued Medications Dextrose (Dextrose 50%-Water Inj 50 Ml Syringe) 25 ml IV Q15MIN PRN PRN Reason: BG 50-70 responsive npo pt Stop: 10/17/24 02:33 Dextrose (Dextrose 50%-Water Inj 50 Ml Syringe) 50 ml IV Q15MIN PRN PRN Reason: BG <50 OR BG <70 & pt unresponsive Stop: 10/17/24 02:33 Glucagon (Glucagon Inj 1 Mg Vial) 1 mg IM Q15MIN PRN PRN Reason: BG <70, and no IV access Insulin Human Lispro (Insulin Lispro (Admelog) 1 Unit/0.01 Ml Unit) 0 unit SC Q6H [facility]; Protocol Stop: 10/17/24 05:59 Last Admin: 09/17/24 06:09 Dose: Not Given Assessment & Plan Plan #GI bleed, likely lower versus upper #Microcytic anemia Patient presented with concern regarding dark bloody stools as noted in the HPI Differentials include internal hemorrhoids, diverticular bleed, malignancy, upper GI bleed from PUD, esophageal ulcer Patient does state that she has been told in the past that she has anemia, from a very young age - possible hemophilia Presented with hemoglobin of 9.4, MCV 80 Coagulation panel within normal limits, liver enzymes are unremarkable On rectal examination, patient has perianal hemorrhoids with minimal evaristo blood noted in rectal vault, sphincter tone normal Patient's hemoglobin is up trended from 9.4-10.0 on recheck without any blood transfusion EGD from 06/08/24 showed esophagitis and gastritis Colonoscopy from 06/13/2024 showed perianal hemorrhoids, medium mouth diverticuli in the descending colon Plan: Consent to be obtained for fiberoptic esophagogastroduodenoscopy under intravenous moderate sedation Continue pantoprazole 40 Mg IV twice daily Monitor hemoglobin and hematocrit Transfuse if hemoglobin less than 7 Consider complete anemia workup with iron panel, ferritin, reticulocyte count, peripheral blood smear #Primary hypertension #Diabetes mellitus type 2 #Asthma/COPD #Depression #Dementia #Paroxysmal A-fib Rest of medical problems to be managed by the hospitalist team Thank you for the opportunity to participate in the care of this patient. Attending Provider Attestation/Addendum 84 years old female evaluated examined and the case discussed in detail with the residential door unit installer After thorough discussion and going over the clinical presentation and examination it was decided the patient should undergo fiberoptic esophagogastroduodenoscopy with possible therapeutic intervention under intravenous moderate sedation After multiple attempts the person with the power of immigration attorney we could not get hold my nursing staff endoscopy team tried several time This is a medically necessary procedure I did sign the consent and proceed with the procedure for further evaluation management If the upper endoscopy is negative no need for repeat colonoscopy at this point We will monitor the hemoglobin hematocrit and if it continues to drop further treatment options will be discussed Thank you for the opportunity to participate in the care of this patient
--- NOTE | 2024-09-17 14:41 | PC.SS ---
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 Pt is confused.? Pt was admitted for GI Bleed.? SS spoke to Vinnie Rankin from [facility] who explained pt is confused, bedbound, max assists, transfers with veronica lift, and utilizes O2 at [facility].? Per David Rankin [place] patient's friend is her R.P (responsible green party).? ?Pt is currently on 1 liter of O2.? Pt is followed by Dr. Barrera at [facility].? ?Pt will return to [facility] upon dc. D/C plan:? Return to [facility] Next of Kin:? ?David Thayer, friend, phone# [phone] PCP:? Dr. Barrera
[2024-09-17] MEDS: ATORVASTATIN CALCIUM 20 MG TABLET PO (20:11)
[2024-09-18] VITALS (8 sets, daily range): BP systolic 136–155; BP diastolic 57–69; PULSE 65–73; RESP 14–19; TEMP 36.1–36.6; O2SAT 92–98
[2024-09-18 05:06] LABS: Basophils # (Auto) 0.1 Thou/mm3 (0.0-0.2); Basophils % (Auto) 1 % (0-2.5); Eosinophils # (Auto) 0.3 Thou/mm3 (0.0-0.5); Eosinophils % (Auto) 5 % (0-10); Hematocrit 35.2 % (36.0-46.0); Hemoglobin 10.2 g/dL (12.0-16.0); Immature Granulocytes % (Auto) 1 % (0-0); Immature Granulocytes Auto 0.03 Thou/mm3 (0.00-0.00); Lymphocytes # (Auto) 1.5 Thou/mm3 (1.0-4.8); Lymphocytes % (Auto) 26 % (10-50); Mean Corpuscular Volume 79 fL (80-100); Monocytes # (Auto) 0.9 Thou/mm3 (0.0-0.8); Monocytes % (Auto) 15 % (0-12); Neutrophils % (Auto) 53 % (37-80); Nucleated Red Blood Cell % 0 /100 WBC (0); Platelet Count 256 Thou/mm3 (140-440); RDW Standard Deviation 78.6 fL (36.4-46.3); Red Blood Count 4.44 Miln/mm3 (4.00-5.20); White Blood Count 5.8 Thou/mm3 (3.6-11.0)
[2024-09-18 05:27] LABS: Ferritin 30 ng/mL (7.3-270.7); Iron 36 mcg/dL (50-170); Percent Iron Saturation 12 % (20-55); Total Iron Binding Capacity 277 mcg/dL (250-425); Unsaturated Iron Binding 241 (225-295)
[2024-09-18 05:32] LABS: Alanine Aminotransferase < 7 U/L (10-49); Albumin, Serum 3.4 gm/dL (3.4-4.8); Albumin/Globulin Ratio 1.3 (1.2-2.2); Alkaline Phosphatase 85 U/L (46-116); Anion Gap 7 (7-16); Aspartate Amino Transferase 15 U/L (0-34); BUN/Creatinine Ratio 34 Ratio (12-20); Bilirubin,Total 0.3 mg/dL (0.3-1.2); Blood Urea Nitrogen 17 mg/dL (9-23); Calcium 9.2 mg/dL (8.3-10.6); Calcium (Corrected) 9.7 mg/dL (8.5-10.1); Carbon Dioxide 32.5 mMol/L (20.0-31.0); Chloride 103 mMol/L (98-107); Creatinine (Component) 0.5 mg/dL (0.6-1.3); Globulin 2.7 gm/dL (2.3-3.5); Glucose 82 mg/dL (74-106); Magnesium 1.9 mg/dL (1.6-2.6); Osmolality,Calculated 283 (275-295); Phosphorous 3.9 mg/dL (2.4-5.1); Potassium 4.6 mMol/L (3.4-5.1); Sodium 142 mMol/L (136-145); Total Protein 6.1 gm/dL (5.7-8.2); eGFR > 60 See Note
[2024-09-18] MEDS: PANTOPRAZOLE INJ 40 MG VIAL IVP (08:35)
[2024-09-18] MEDS: Magnesium Sulfate 2 GM Ivpb 2 GM/50 ML BAG IV (08:38)
[2024-09-18] MEDS: amLODIPine BESYLATE 5 MG TABLET PO (08:41)
[2024-09-18] MEDS: DULoxetine HCL 20 MG CAPSULE PO (08:41)
[2024-09-18] MEDS: ACETAMINOPHEN 325 MG TABLET 650 MG PO (08:42)
--- NOTE | 2024-09-18 10:43 | ESDS_ITS ---
<Statement entered by Flavio Benavidez MD - 09/19/24 07:23> I discussed with and supervised the physician/internist physician involved in the care of this patient. Patient assessment and plan was discussed with entire medicine team, including my attending. I agree with the assessment and plan as documented by physician/internist doctor. Patient care was discussed with my attending physician Dr. Bj Benavidez, PGY-2 Planned Discharge Date 09/18/24 DS: Providers Provider Date of admission: 09/17/24 02:28 Primary care physician: Physician Sera Primary/Family Admitting Provider: Sean Guido MD Attending Provider on Admission: Raymundo Finn MD Consults: 09/17/24 02:34 Consult to Gastroenterology Stat Comment: GI bleed Consulting Provider: Alli Kraft Attending Provider on DC: Wojciech Lorenzo MD Discharging Provider: Wojciech Lorenzo MD Anticipated date of discharge: 09/18/24 DS: Diagnosis Problem List Completed Was Problem List Reviewed/Reconciled?: Yes Hospital Course Hospital Course Hospital course: Hospital course: Ms. Jj is a 84-year-old female with past medical history of paroxysmal atrial fibrillation (not on anticoagulation because of recurrent, GI bleed), hypertension, asthma/COPD (on 2-3 L home oxygen), diabetes mellitus type 2, depression and dementia who presented to [facility] emergency department on 09/16/2024 with a chief complaint of dark bloody stools. Patient was normotensive, hemodynamically stable and had hemoglobin 9.4 on presentation, patient had witnessed bright red blood in bowel movement per nursing and was occult blood positive, patient was started on Protonix twice daily, GI was consulted. Patient had EGD performed on 09/17/2024 which was significant for gastritis. On physical exam patient had significant internal hemorrhoids with minimal evaristo blood in rectal vault, patient's bleeding from hemorrhoids was moderate and intermittent, per GI there was no indication of colonoscopy and patient deemed stable to be discharged as patient's vitals, hemoglobin and hematocrit was stable. Further plan [facility] lidocaine?hydrocortisone?aloe vera hemorrhoid ointment for 1 week, along with sitz bath's and Benefiber. Patient to continue omeprazole for underlying gastritis, patient to continue all other home medications as prescribed, patient to follow-up outpatient with gastroenterology as needed and follow-up with primary care physician in 1 week. Patient is stable for discharge, patient responded well to hospital treatment. Discharge diagnosis: #Acute lower GI bleed secondary to internal hemorrhoids #Chronic microcytic anemia, secondary to iron deficiency #Gastritis #Status post EGD 09/17/2024 #Hypertension #Type 2 diabetes mellitus #Depression #Dementia #Asthma/COPD Status at Discharge Overall status at discharge: patient is progressing back to baseline Time Spent with Patient Time attestation: Total time spent providing and/or coordinating discharge services: Greater than 35 minutes Time spent: Greater than 30 minutes Exam Vital Signs Temp Pulse Resp BP Pulse Ox O2 Del Method O2 Flow Rate 97.1 F 67 14 155/69 H 98 Nasal Cannula 1 09/18/24 07:53 09/18/24 09:24 09/18/24 09:24 09/18/24 08:41 09/18/24 09:24 09/18/24 07:53 09/18/24 09:24 Narrative Exam Physical Exam General: Awake and in no acute distress. Conversational and non-toxic appearing. HEENT: Normocephalic, atraumatic, mucous membranes moist. Heart: Regular rate and rhythm, no murmurs. Lungs: Clear to auscultation with no wheezing or crackles. Abdomen: Soft, nondistended, minimal tenderness RUQ and LLQ, positive bowel sounds. ?No guarding or rebound tenderness. Neurologic: Alert and oriented x3, no gross neurological deficit, and patient able to move all 4 extremities. Extremities: No edema. Skin: No rash or ecchymoses. Discharge Plan Plan Patient Disposition: Xfer [facility] (SNF) Patient condition on transfer: Stable Care Plan Goals: Use lidocaine-hydrocortisone kit for hemorrhoids for 1 week, use sitz bath daily. Continue High fibre diet, keep daily fluid intake 1.5-2 litres. Continue Omeprazole for Gastritris. Follow up with PCP in 1 week, discuss if you need to be on Anti-coagulation. Obtain referral for Gastroenterology and follow up outpatient with GI. Return to ED if symptoms reoccur or return. Prescriptions/Referrals Prescriptions/Med Rec: New upgrvrang-fdlewlaxbfrrvo-mwnt 3-2.5 % (7 gram) kit 1 applic AK BID Qty: 1 0RF (DME) miscellaneous medical supply Misc See Rx Instructions .ROUTE Qty: 1 0RF Rx Instructions: As directed Benefiber Clear SF (dextrin) 3 gram/3.5 gram powder in packet 1.5 g PO TID Qty: 28 0RF Rx Instructions: mix into at least 4 oz water or juice before administering quetiapine [Seroquel] 25 mg tablet 25 mg PO HS Qty: 30 0RF duloxetine 30 mg capsule, delayed rel sprinkle 30 mg PO QDAY Qty: 30 0RF Continued amlodipine 5 mg Tablet 5 mg PO QDAY Rx Instructions: hold if BP <110/80 , pulse <60 acetaminophen 500 mg Tablet 500 mg PO Q8HR PRN (Reason: pain (scale score 1-3)) magnesium hydroxide [Milk of Magnesia] 400 mg/5 mL Suspension 30 ml PO Q72H PRN (Reason: Constipation) loratadine 10 mg Tablet 10 mg PO QDAY multivitamin with minerals Capsule 1 cap PO QDAY insulin glargine [Lantus Solostar U-100 Insulin] 100 unit/mL (3 mL) Insulin Pen 10 unit SUBCUT HS Rx Instructions: do not give if blood sugar less than 100 albuterol sulfate [ProAir HFA] 90 mcg/actuation HFA aerosol inhaler 1 inh inhalation Q6H PRN (Reason: shortness of breath or wheezing) metformin 500 mg tablet 500 mg PO BID polyvinyl alcohol [Artificial Tears (polyvin alc)] 1.4 % Drops 2 drp OPHTHALMIC (EYE) Q4H PRN (Reason: irritation) calcium carbonate 600 mg calcium (1,500 mg) Tablet 600 mg PO BID hydroxyzine HCl 25 mg Tablet 50 mg PO BID Rx Instructions: for itching diphenhydramine HCl [Benadryl] 25 mg Capsule 25 mg PO BID Rx Instructions: for pruritus Trelegy Ellipta 100-62.5-25 mcg blister with device 1 inh inhalation QDAY Qty: 28 0RF albuterol sulfate 90 mcg/actuation HFA aerosol inhaler 2 puff inhalation Q6H PRN (Reason: shortness of breath or wheezing) Qty: 6.7 0RF atorvastatin 20 mg tablet 20 mg PO QPM omeprazole 40 mg capsule,delayed release(DR/EC) 40 mg PO QDAY guaifenesin 100 mg/5 mL syrup 400 mg PO Q6H PRN (Reason: cough) cyanocobalamin (vitamin B-12) 1,000 mcg tablet 1,000 mcg PO QDAY cholecalciferol (vitamin D3) 1,250 mcg (50,000 unit) capsule 50,000 unit PO QWEEK Patient Comments: mondays Held bisacodyl 10 mg Suppository 10 mg AK PRN PRN (Reason: Constipation) Hold Instructions: Resume on 10/02/24. ferrous gluconate 324 mg (38 mg iron) tablet 324 mg PO BID 30 Days Qty: 60 0RF Hold Instructions: Resume on 09/25/24. Discontinued quetiapine [Seroquel] 25 mg Tablet 25 mg PO QDAY duloxetine [Cymbalta] 30 mg Capsule,Delayed Release(Dr/Ec) 30 mg PO BID Drizalma Sprinkle 20 mg capsule, delayed rel sprinkle 20 mg PO QDAY Referrals: Alli Kraft MD [Physician] - No Primary/Family,Physician [Primary Care Provider] - Patient/Caregiver Discharge Instructions Discharge Activity: activity as tolerated Other Discharge Activity Instructions:: Use lidocaine-hydrocortisone kit for hemorrhoids for 1 week, use sitz bath daily. Continue High fibre diet, keep daily fluid intake 1.5-2 litres. Continue Omeprazole for Gastritris. Follow up with PCP in 1 week, discuss if you need to be on Anti-coagulation. Obtain referral for Gastroenterology and follow up outpatient with GI. Return to ED if symptoms reoccur or return. Education Materials: Treating Hemorrhoids: Self-Care, Understanding Hemorrhoids, Taking a Sitz Bath Print Language: Romansh Stand Alone Forms: [employer] Award Info., Patient Portal Info Letter Discharge Order Discharge Orders: Discharge (Routine); Ordered 09/18/24 Ordered By: Constantine Nath Quality Discharge Quality Measures VTE prophylaxis and none MD Attestestation MD Attestation I reviewed labs, imaging, EKG, home medications and prior available records. Face to face evaluation was performed by me. I have personally examined the patient and discussed assessment and plan with the IM team. I reviewed the resident note and agree with the plan with exceptions as below. Upper GI bleed Gastritis COPD without exacerbation Bleeding hemorrhoids Melena Status post EGD that showed gastritis without ulcers. Continue PPI twice daily Monitor H&H: Stable Discussed with GI: No need for colonoscopy Unclear whether the patient is on Eliquis. Will hold. Discussed restarting with PCP GI recommended hemorrhoid cream, sitz bath, increase fiber intake and oral hydration Hold iron pills for 1 week Time spent is 40 minutes. More than 50% of the time was spent on patient education and coordination of care.
--- NOTE | 2024-09-18 13:10 | PC.SS ---
[employer] spoke to [facility] and got confirmation for eta at 1600
--- NOTE | 2024-09-18 13:12 | PC.SS ---
[employer] Professor (CHASE) Lyndsay informed that patient had discharge orders to return to [facility]. Patient is intermittently confused. However, SW still notified her. SW also contacted patient's friend and only emergency contact, Linda whom was notified as well. [facility] scheduled EMS transportation for 1600. [facility]ASE notified Valerie.
--- NOTE | 2024-09-18 13:34 | PC.NURSE ---
SPOKE TO ADELINA MILLIGAN AT [facility] TO PROVIDED DISCHARGE INSTRUCTIONS
--- NOTE | 2024-09-18 14:03 | PD.IMPROG ---
Documentation for date of: 09/18/24 Subjective Subjective Interval history: Case discussed with internal medicine team Hemoglobin hematocrit stable Okay to discharge patient home to be followed by the PCP Exam Vital Signs Temp Pulse Resp BP Pulse Ox O2 Del Method O2 Flow Rate 97.0 F 65 18 137/57 H 94 L Nasal Cannula 1 09/18/24 12:00 09/18/24 12:00 09/18/24 12:00 09/18/24 12:00 09/18/24 12:00 09/18/24 12:00 09/18/24 12:00 Objective Labs 09/18/24 04:26 09/18/24 04:26 Labs: Laboratory Results - last 24 hr 09/18/24 04:26 WBC 5.8 RBC 4.44 Hgb 10.2 L Hct 35.2 L MCV 79 L MCH 23.0 L MCHC 29.0 L RDW Std Deviation 78.6 H Plt Count 256 D Neut % (Auto) 53 Lymph % (Auto) 26 [place] % (Auto) 15 H Eos % (Auto) 5 Baso % (Auto) 1 Neut # (Auto) 3.0 Lymph # (Auto) 1.5 [place] # (Auto) 0.9 H Eos # (Auto) 0.3 Baso # (Auto) 0.1 Immature Gran # (Auto) 0.03 H Absolute Nucleated RBC 0.00 Immature Gran % 1 H Nucleated RBC % 0 Sodium 142 Potassium 4.6 Chloride 103 Carbon Dioxide 32.5 H Anion Gap 7 BUN 17 Creatinine 0.5 L Estim Creat Clear Calc Not Performed. eGFR > 60 BUN/Creatinine Ratio 34 H Glucose 82 Calculated Osmolality 283 Calcium 9.2 Corrected Calcium 9.7 Phosphorus 3.9 Magnesium 1.9 Iron 36 L TIBC 277 Iron Saturation 12 L Unsat Iron Binding 241 Ferritin 30 Total Bilirubin 0.3 AST 15 ALT < 7 L Alkaline Phosphatase 85 Total Protein 6.1 Albumin 3.4 Globulin 2.7 Albumin/Globulin Ratio 1.3 Impressions Impression: Gastritis esophagitis Agree with the discharge planning Assessment & Plan Time Spent With Patient Time: Total time spent is greater than 50% in coordination of care (as documented) at patient's floor/unit and/or counseling patient:
== END 2024-09-18 18:43 | disposition skilled nursing facility (03) | DRG 378 ==
LOC: SERX 20:35 → SERHOLD 09-17 03:01 → S3SX 09-17 04:39
PROVIDERS: Specialist; Admitting Provider Student in an Organized Health Care Education/Training Program; Emergency Provider Emergency Medicine; Visit Provider Internal Medicine
PROC: 0DJ08ZZ Inspection of Upper Intestinal Tract, Via Natural or Artificial Opening Endoscopic (ICD-10-PCS; CPT 43239; principal; 2024-09-17 16:30)
DX: K29.71 Gastritis, unspecified, with bleeding (principal); D62 Acute posthemorrhagic anemia; F03.93 Unspecified dementia, unspecified severity, with mood disturbance; J98.11 Atelectasis; K64.8 Other hemorrhoids; I10 Essential (primary) hypertension; E11.9 Type 2 diabetes mellitus without complications; J44.89 Other specified chronic obstructive pulmonary disease; F32.A Depression, unspecified; I48.0 Paroxysmal atrial fibrillation; I44.0 Atrioventricular block, first degree; Z79.4 Long term (current) use of insulin; Z66 Do not resuscitate; Z79.84 Long term (current) use of oral hypoglycemic drugs; Z90.710 Acquired absence of both cervix and uterus; Z99.81 Dependence on supplemental oxygen; Z79.899 Other long term (current) drug therapy
CPT/HCPCS: 36415; 71045; 80053; 80061; 82270; 82728; 83036; 83540; 83550; 83735; 84100; 84439; 84443; 84484; 85025; 85610; 85730; 87081; 93005; 93225; 94664; 94762; 96374; 99285; J1200; J2250; J2470; J3010; J3475; A9270